=== PATIENT | female | born 1940 | race Caucasian/White ===

== ENCOUNTER 2020-11-13 15:05 | Outpatient (CLI) | payer MEDICARE, OTHER, SELFPAY ==
--- NOTE | 2020-11-13 15:15 | MM_ITS ---
WS: [id number] BILATERAL SCREENING DIGITAL MAMMOGRAM WITH CAD HISTORY: SCREENING COMPARISON: 04/08/2017 Bilateral CC and MLO views submitted. Computer aided detection analyzed. Breast composition: There are scattered areas of fibroglandular density. No suspicious masses, microc alcifications or architectural distortion. Scattered benign calcifications and asymmetries are stable . MM/[place] [id number] IMPRESSION: BI-RADS: 2-Benign FOLLOW UP: 1 Year Follow-up
== END 2020-11-13 15:06 | disposition home or self-care (01) ==
LOC: RADSHAW 15:11
PROVIDERS: PCP Nurse Practitioner Family; Visit Provider Nurse Practitioner Family
DX: Z12.31 Encounter for screening mammogram for malignant neoplasm of breast (principal)
CPT/HCPCS: 77067

== ENCOUNTER 2020-12-31 09:03 | Emergency (ER) | payer MEDICARE, OTHER, SELFPAY ==
[2020-12-31 09:25] VITALS: BP 113/55; PULSE 70; RESP 21; TEMP 37; O2SAT 93; BMI 28.3
--- NOTE | 2020-12-31 09:42 | ED_ITS ---
HPI - COVID General: Chief Complaint: COVID symptoms Stated Complaint: Weakness/Lack of appetite Time Seen by Provider: 12/31/20 09:24 Triage information: Has fever, cough or shortness of breath . No known COVID + exposure last 14 days History of Present Illness: HPI Narrative: 80-year-old female presents emergency room with complaint of having been diagnosed with Covid this morning at [facility]. Complaining of weakness and lack of appetite. She has had some loose stools denies any anosmia. She has had minimal cough which is been nonproductive. She has a history of hypertension she is not normally on oxygen. On arrival here sats are little bit lower than normal she when I came into the room her oxygen sat was 87% while at rest on room air. As I talk to her oxygen sats improved into the low 90s. MD complaint: known COVID positive Prior covid testing: no Prior testing date: 12/31/20 COVID 19 common symptoms: positive cough, non-productive cough, dyspnea, fatigue, body aches, nasal congestion, nausea and diarrhea; negative productive cough, headache(s), loss of sense of smell and/or taste, throat pain or vomiting COVID 19 other sytmptoms: negative chest pain Onset (ago): day(s) (4) Severity: mild Pertinent comorbid conditions: hypertension Treatment prior to arrival: none COVID Results: No Data to Display Review of Systems Const: Reports: body aches and fatigue ENMT: Reports: nasal congestion; Denies: throat pain Card: Denies: chest pain, edema, dyspnea on exertion or orthopnea Resp: Reports: dyspnea and non-productive cough; Denies: productive cough GI: Reports: nausea and diarrhea; Denies: vomiting : Denies: flank pain, difficulty voiding, dysuria, urinary frequency or urinary urgency Skin/Breast: Denies: rash or pruritus Neuro: Denies: headache(s) PFSH ED PFSH: Medical History (Updated 12/31/20 @ 11:27 by Guicho Chairez DO) Arteriosclerosis of coronary artery Bradycardia Carpal tunnel syndrome on both sides Chronic anxiety Diabetes Hypertension Hypotension Left ventricular hypertrophy Leg swelling Mixed hyperlipidemia Myocardial infarction Obese Palpitations Sleep apnea Surgical History H/O heart surgery H/O tubal ligation Previous back surgery Family History Other No family history of disorders Social History Smoking and tobacco status: former smoker Alcohol intake: never Physical Exam Const: COMMON NORMALS: no acute distress GENERAL APPEARANCE: cooperative and comfortable HENMT: COMMON NORMALS: normocephalic, atraumatic and hearing grossly normal bilaterally HEAD & SCALP: normocephalic and atraumatic Neck/C-Spine: COMMON NORMALS: no JVD Resp: COMMON NORMALS: normal respiratory effort, No retractions and No use of accessory muscles AUSCULTATION: wheezes Cardio: COMMON NORMALS: no JVD, regular rate, regular rhythm and No murmurs present (Cardio) RATE: regular rate RHYTHM: regular rhythm GI: COMMON NORMALS: Soft to palpation and No hepatosplenomegaly present AUSCULTATION: Yes normoactive bowel sounds PALPATION: Yes Soft to palpation, No Tenderness to palpation present (GI), No Guarding due to palpation present (GI) and Yes No hepatosplenomegaly present Extremity: COMMON NORMALS: normal to inspection, capillary refill normal, no clubbing, cyanosis or edema, no calf tenderness and no pedal edema Skin: COMMON NORMALS: no rashes or lesions noted GENERAL SKIN EXAM: no rashes or lesions noted Course Vital Signs: Vital signs: Vital Signs Temperature 98.6 F 12/31/20 09:25 Pulse Rate 73 12/31/20 13:31 Respiratory Rate 21 H 12/31/20 13:31 Blood Pressure 116/56 12/31/20 13:31 Pulse Oximetry 97 12/31/20 13:31 MDM - COVID MDM Narrative: Medical decision making narrative: On arrival at times patient will desat to 87% on room air. At home to give her but sent her to the infusion clinic for MAB infusion however when we screened her for home O2 if she qualifies requiring 2 L. Needing oxygen is in excluder for a monoclonal antibody infusion. Discharge home patient home with oxygen at 2 L/min and dexamethasone. Discussed with her unfortunately she is not a candidate for the infusion. Lab Data: Labs: Lab Results 12/31/20 12/31/20 12/31/20 Range/Units 09:41 09:41 09:41 WBC 6.2 (4.0-10.0) 10^3/ uL RBC 4.64 (4.1-5.3) 10^6/u L Hgb 13.6 (11.5-15.3) g/dL Hct 41.3 (37.0-47.0) % MCV 89.0 (81-99) fL MCH 29.3 (28.0-34.0) pg MCHC 32.9 (30.0-36.0) g/dL RDW 13.1 (12.1-15.1) % Plt Count 218 (130-400) 10^3/c mm MPV 10.6 H (7.4-10.4) fL Neut % (Auto) 63.0 % Lymph % (Auto) 28.6 % [place] % (Auto) 7.4 % Eos % (Auto) 0.3 % Baso % (Auto) 0.2 % Neut # (Auto) 3.92 (1.8-7.7) 10^3/u L Lymph # (Auto) 1.8 (0.8-4.8) 10^3/u L [place] # (Auto) 0.5 (0.2-0.9) 10^3/u L Eos # (Auto) 0.0 (0.0-0.8) 10^3/u L Baso # (Auto) 0.0 (0.0-0.1) 10^3/u L Nucleated RBC % (a uto) 0 % Nucleated RBCs # 0.0 /100WBC D-Dimer 0.49 (0-0.59) ug/mIFE U Sodium 134 L (136-145) mmol/L Potassium 3.1 L (3.5-5.1) mmol/L Chloride 91 L (98-107) mmol/L Carbon Dioxide 29 (22-29) mmol/L Anion Gap 17.1 (5-19) BUN 24 H (8-23) mg/dL Creatinine 0.7 (0.5-0.9) mg/dL GFR Calculation Not Reportable Glucose 117 H (65-115) mg/dL Calculated Osmolal ity 283 L (285-295) mOsm/k g Lactic Acid (0.5-2.2) mmol/L Lactic Acid (Sepsi s) (0.5-2.2) mmol/L Calcium 9.1 (8.5-10.5) mg/dL Total Bilirubin 0.8 (0.15-1.2) mg/dL AST 26 (0-32) U/L ALT 17 (0-33) U/L Alkaline Phosphata se 69 (35-105) IU/L Total Protein 6.8 (6.6-8.7) g/dL Albumin 4.0 (3.5-5.2) g/dL Globulin 2.8 (1.3-4.6) g/dL 12/31/20 12/31/20 Range/Units 09:41 12:03 WBC (4.0-10.0) 10^3/ uL RBC (4.1-5.3) 10^6/u L Hgb (11.5-15.3) g/dL Hct (37.0-47.0) % MCV (81-99) fL MCH (28.0-34.0) pg MCHC (30.0-36.0) g/dL RDW (12.1-15.1) % Plt Count (130-400) 10^3/c mm MPV (7.4-10.4) fL Neut % (Auto) % Lymph % (Auto) % [place] % (Auto) % Eos % (Auto) % Baso % (Auto) % Neut # (Auto) (1.8-7.7) 10^3/u L Lymph # (Auto) (0.8-4.8) 10^3/u L [place] # (Auto) (0.2-0.9) 10^3/u L Eos # (Auto) (0.0-0.8) 10^3/u L Baso # (Auto) (0.0-0.1) 10^3/u L Nucleated RBC % (a uto) % Nucleated RBCs # /100WBC D-Dimer (0-0.59) ug/mIFE U Sodium (136-145) mmol/L Potassium (3.5-5.1) mmol/L Chloride (98-107) mmol/L Carbon Dioxide (22-29) mmol/L Anion Gap (5-19) BUN (8-23) mg/dL Creatinine (0.5-0.9) mg/dL GFR Calculation Glucose (65-115) mg/dL Calculated Osmolal ity (285-295) mOsm/k g Lactic Acid 2.5 H (0.5-2.2) mmol/L Lactic Acid (Sepsi s) 2.5 H (0.5-2.2) mmol/L Calcium (8.5-10.5) mg/dL Total Bilirubin (0.15-1.2) mg/dL AST (0-32) U/L ALT (0-33) U/L Alkaline Phosphata se (35-105) IU/L Total Protein (6.6-8.7) g/dL Albumin (3.5-5.2) g/dL Globulin (1.3-4.6) g/dL COVID Results: No Data to Display Monoclonal Antibody Treatments Inclusion/Exclusion Criteria weight >/= 40 kg and + direct Sars-Cov-2 test less than 7-10 days ago age >/= 65 needs oxygen (DO NOT GIVE) Plan for treatment Does not meet criteria (DO NOT GIVE) (Due to oxygen requirement) Discharge Plan Discharge Patient Disposition: Home Clinical Impression: COVID-19 Condition: Stable Prescriptions: New dexamethasone 6 mg tablet 6 mg PO DAILY Qty: 7 RF: 0 albuterol sulfate 90 mcg/actuation HFA aerosol inhaler 2 inh INHALATION Q4H PRN (Reason: shortness of breath or wheezing) Qty: 18 RF: 0 No Action metformin 500 mg tablet 500 mg PO BID RF: 0 atorvastatin 40 mg tablet 40 mg PO DAILY RF: 0 amlodipine 5 mg tablet 5 mg PO DAILY RF: 0 aspirin 325 mg tablet 325 mg PO DAILY RF: 0 metoprolol tartrate 50 mg tablet 50 mg PO BID RF: 0 ranitidine HCl 150 mg capsule 150 mg PO DAILY PRNRF: 0 buspirone 15 mg tablet PO DAILY RF: 0 donepezil 10 mg tablet 10 mg PO DAILY RF: 0 chlorthalidone 25 mg tablet 25 mg PO DAILY Qty: 90 RF: 3 Discharge Orders: Discharge ED (Routine); Ordered 12/31/20 Ordered By: Guicho Chairez Other Ambulatory Orders: DME: Oxygen (Order) Location: None Selected Ordered By: Guicho Chairez Referrals: Lynn Chaudhary FNP [Primary Care Provider] - Discharge Diet: Usual diet Discharge Activity: Limit activity as instructed Activity Restrictions/Additional Instructions: Use oxygen 24 hours a day. Start the dexamethasone 6 mg daily for 7 days follow-up with your primary care doctor or return to the emergency room if you have any further problems monitor your oxygen saturation at home if falls below 92% while on the oxygen for a sustained period of time return to the emergency room. Coding Level of Care Code ED Gas Engine Operator Compressors for Jez Fwbabatunde Exam Comprehensive
--- NOTE | 2020-12-31 09:47 | XRR_ITS ---
PROCEDURE INFORMATION: Exam: XR Chest, 1 View Exam date and time: 12/31/2020 10:16 AM Age: 80 years old Clinical indication: Dyspnea TECHNIQUE: Imaging protocol: XR of the chest Views: 1 view. COMPARISON: [facility] Chest 2 views 11/05/2015 2:34 PM FINDINGS: Lungs: The pulmonary vascularity is normal. There is scattered interstitial fibrotic changes. There is no airspace consolidation. Pleural spaces: Unremarkable. No pleural effusion. No pneumothorax. Heart/Mediastinum: The cardiac silhouette is mildly enlarged. Bones/joints: Unremarkable. XR/XR chest 1V portable [id number] IMPRESSION: 1. Mild cardiomegaly. 2. Scattered interstitial pulmonary fibrosis. 3. No acute abnormality is seen in the chest.
[2020-12-31] MEDS: dexamethasone 4 mg/mL INJ 6 MG IVP (09:57)
[2020-12-31 10:00] LABS: Basophils % 0.2 %; Eosinophils % 0.3 %; Hematocrit 41.3 % (37.0-47.0); Hemoglobin 13.6 g/dL (11.5-15.3); Lymphocytes # 1.8 10^3/uL (0.8-4.8); Lymphocytes % 28.6 %; Mean Corpuscular HGB Conc 32.9 g/dL (30.0-36.0); Mean Corpuscular Hemoglobin 29.3 pg (28.0-34.0); Mean Platelet Volume 10.6 fL (7.4-10.4); Monocytes # 0.5 10^3/uL (0.2-0.9); Monocytes % 7.4 %; Neutrophils # 3.92 10^3/uL (1.8-7.7); Nucleated Red Blood Cells % 0 %; Platelet Count 218 10^3/cmm (130-400); Red Blood Count 4.64 10^6/uL (4.1-5.3); Red Cell Distribution Width 13.1 % (12.1-15.1); White Blood Count 6.2 10^3/uL (4.0-10.0)
[2020-12-31 10:10] LABS: D Dimer 0.49 ug/mIFEU (0-0.59)
[2020-12-31 10:23] LABS: Alanine Aminotransferase 17 U/L (0-33); Alkaline Phosphatase 69 IU/L (35-105); Anion Gap 17.1 (5-19); Aspartate Amino Transferase 26 U/L (0-32); Blood Urea Nitrogen 24 mg/dL (8-23); Calcium 9.1 mg/dL (8.5-10.5); Carbon Dioxide 29 mmol/L (22-29); Chloride 91 mmol/L (98-107); Globulin 2.8 g/dL (1.3-4.6); Glucose 117 mg/dL (65-115); Osmolality Calculated 283 mOsm/kg (285-295); Potassium 3.1 mmol/L (3.5-5.1); Sodium 134 mmol/L (136-145); Total Bilirubin 0.8 mg/dL (0.15-1.2); Total Protein 6.8 g/dL (6.6-8.7)
[2020-12-31 10:24] LABS: Lactic Sepsis W/Reflex 2.5 mmol/L (0.5-2.2)
[2020-12-31 10:40] VITALS: O2SAT 87; O2SAT 95
[2020-12-31] MEDS: sodium chloride 0.9% 1,000 ML 999 ML IV (10:53)
[2020-12-31 11:40] LABS: Reflex Lactate Order REFLEX LACTIC ORDERD
[2020-12-31 12:20] VITALS: BP 107/65; PULSE 72; RESP 20; O2SAT 98
[2020-12-31 12:25] LABS: Lactic Acid level (Lactate) 2.5 mmol/L (0.5-2.2)
[2020-12-31 13:31] VITALS: BP 116/56; PULSE 73; RESP 21; O2SAT 97
== END 2020-12-31 13:39 | disposition home or self-care (01) ==
PROVIDERS: Emergency Provider Family Medicine; PCP Nurse Practitioner Family
DX: U07.1 COVID-19 (principal); Z79.82 Long term (current) use of aspirin; Z79.84 Long term (current) use of oral hypoglycemic drugs; E11.9 Type 2 diabetes mellitus without complications; I10 Essential (primary) hypertension; E78.2 Mixed hyperlipidemia; I25.2 Old myocardial infarction; Z87.891 Personal history of nicotine dependence
CPT/HCPCS: 12345; 36415; 71045; 80053; 83605; 85025; 85378; 96361; 96374; 99282; 99283; J1100; J7030

== ENCOUNTER 2021-01-06 08:16 | Inpatient (IN) | payer MEDICARE, OTHER, SELFPAY ==
[2021-01-06] VITALS (9 sets, daily range): BP systolic 106–132; BP diastolic 65–78; PULSE 61–86; RESP 16–20; TEMP 36.3–38.8; O2SAT 93–97; BMI 26.6
--- NOTE | 2021-01-06 08:31 | XR_ITS ---
WS: [id number] PORTABLE CHEST HISTORY: dyspnea COMPARISON: 12/31/2019 Chronic emphysema with interstitial thickening. Mild progression of the interstitial thickening since 12/31/2020 suggesting superimposed pneumonitis. No pleural effusion or pneumothorax. Cardiac size: Normal. Mediastinum/Aorta: Mild atherosclerosis aorta. No osseous abnormality seen. XR/XR chest 1V portable [id number] IMPRESSION: 1. Very mild progression of the interstitial thickening suggesting a superimpo sed pneumonitis on patient's chronic interstitial lung disease. 2. No pneumonia.
--- NOTE | 2021-01-06 08:31 | W.ED.AMS ---
HPI - Altered Mental Status General: Chief Complaint: Altered Mental Status Stated Complaint: AMS / SHORT OF BREATH / COVID + Time Seen by Provider: 01/06/21 08:17 History of Present Illness: HPI narrative: 80-year-old female presents to the emergency room with confusion. She was diagnosed with Covid on 12/31. We seen her in the ER on 210 she was evaluated then for possible monoclonal antibody infusion however she was requiring oxygen which was in excluder so she did not receive it. She did get sent home on oxygen and dexamethasone. This morning she was confused and had a fall. She denies any injury but I am not really comfortable with her history and that she answers I do not know to nearly every question. Is no evidence of head trauma. She is not on any anticoagulants are listed on her medication list. MD complaint: altered mental status and confusion Onset (ago): hour(s) Severity: moderate Consistency of symptoms: Getting Worse Treatments prior to arrival: oxygen Review of Systems Const: Denies: fever(s), chills, body aches, change in appetite, fatigue or malaise ENMT: Denies: throat pain, ear or mastoid pain, nasal discharge or nasal congestion Card: Denies: chest pain, edema, dyspnea on exertion or orthopnea Resp: Denies: dyspnea, productive cough or non-productive cough GI: Denies: abdominal pain, nausea, vomiting, hematemesis, coffee ground emesis, diarrhea, constipation, bloating, hematochezia or melena : Denies: flank pain, difficulty voiding, dysuria, urinary frequency or urinary urgency Skin/Breast: Denies: rash or pruritus PFSH ED PFSH: Medical History (Updated 01/06/21 @ 11:02 by Guicho Chairez DO) Arteriosclerosis of coronary artery Bradycardia Carpal tunnel syndrome on both sides Chronic anxiety Diabetes Hypertension Hypotension Left ventricular hypertrophy Leg swelling Mixed hyperlipidemia Myocardial infarction Obese Palpitations Sleep apnea Surgical History H/O heart surgery H/O tubal ligation Previous back surgery Family History Other No family history of disorders Social History Smoking and tobacco status: former smoker Alcohol intake: never Physical Exam Const: COMMON NORMALS: no acute distress GENERAL APPEARANCE: cooperative and comfortable HENMT: COMMON NORMALS: normocephalic, atraumatic and hearing grossly normal bilaterally HEAD & SCALP: normocephalic and atraumatic Eye: COMMON NORMALS: Equal, round and reactive pupils present, EOMs intact bilaterally, conjunctivae normal and no scleral icterus CONJUNCTIVA: Yes conjunctivae normal PUPIL: Yes Equal, round and reactive pupils present Neck/C-Spine: COMMON NORMALS: full ROM, no lymphadenopathy, supple and no JVD Lymph: LYMPHATIC: no lymphadenopathy noted and no lymphedema noted Resp: AUSCULTATION: wheezes and diminished lung sounds Cardio: COMMON NORMALS: no JVD, regular rate, regular rhythm and No murmurs present (Cardio) RATE: regular rate RHYTHM: regular rhythm GI: COMMON NORMALS: Soft to palpation and No hepatosplenomegaly present AUSCULTATION: Yes normoactive bowel sounds PALPATION: Yes Soft to palpation, No Tenderness to palpation present (GI), No Guarding due to palpation present (GI) and Yes No hepatosplenomegaly present Extremity: COMMON NORMALS: normal to inspection, capillary refill normal, no clubbing, cyanosis or edema, no calf tenderness and no pedal edema Neuro: OTHER: No focal neurologic deficits. No lateralizing signs on exam. Skin: COMMON NORMALS: no rashes or lesions noted GENERAL SKIN EXAM: no rashes or lesions noted Course Vital Signs: Vital signs: Vital Signs Temperature 101.9 F H 01/06/21 08:18 Pulse Rate 86 01/06/21 10:45 Respiratory Rate 18 01/06/21 10:45 Blood Pressure 132/74 01/06/21 10:45 Pulse Oximetry 95 01/06/21 10:45 MDM - Altered Mental Status MDM Narrative: Medical decision making narrative: No focal neurologic deficits on exam. She does have increased infiltrate on the right suspicious for secondary pneumonia. D-dimer is slightly elevated CTA of the chest is pending she will need to be admitted started IV antibiotics for possible secondary pneumonia. CT shows developing what appears to be Covid pneumonitis as well as secondary pneumonia superimposed on COPD. No pulmonary embolism Lab Data: Labs: Lab Results 01/06/21 01/06/21 01/06/21 Range/Units 08:34 08:34 08:34 WBC 8.4 (4.0-10.0) 10^3/ uL RBC 4.81 (4.1-5.3) 10^6/u L Hgb 14.0 (11.5-15.3) g/dL Hct 41.7 (37.0-47.0) % MCV 86.7 (81-99) fL MCH 29.1 (28.0-34.0) pg MCHC 33.6 (30.0-36.0) g/dL RDW 12.7 (12.1-15.1) % Plt Count 336 (130-400) 10^3/c mm MPV 10.4 (7.4-10.4) fL Neut % (Auto) 67.9 % Lymph % (Auto) 24.5 % [place] % (Auto) 6.8 % Eos % (Auto) 0.4 % Baso % (Auto) 0.0 % Neut # (Auto) 5.68 (1.8-7.7) 10^3/u L Lymph # (Auto) 2.1 (0.8-4.8) 10^3/u L [place] # (Auto) 0.6 (0.2-0.9) 10^3/u L Eos # (Auto) 0.0 (0.0-0.8) 10^3/u L Baso # (Auto) 0.0 (0.0-0.1) 10^3/u L Nucleated RBC % (a uto) 0 % Nucleated RBCs # 0.0 /100WBC D-Dimer 0.77 H (0-0.59) ug/mIFE U Specimen Type Sample Site ABG pH (7.35-7.45) ABG pCO2 (35-45) mmHg ABG pO2 (80.0-100.0) mmH g ABG HCO3 (22-26) mmol/L ABG O2 Saturation ABG Base Excess (-2.0-2.0) mmol/ L Eulogio Test A-a O2 Gradient (5-10) mmHg Hematocrit (37-47) % Hgb O2 Saturation (95-100) % Carboxyhemoglobin (0.4-20.1) %THgb Methemoglobin (0.4-1.5) % Total Hemoglobin (12-16) g/dL Ionized Calcium (1.1-1.4) mmol/L O2 Delivery Device O2 Liters/Min % FiO2 % Privacy Compliance Manager ID Sodium 134 L (136-145) mmol/L Potassium 3.0 L (3.5-5.1) mmol/L Chloride 90 L (98-107) mmol/L Carbon Dioxide 33 H (22-29) mmol/L Anion Gap 14.0 (5-19) BUN 20 (8-23) mg/dL Creatinine 0.7 (0.5-0.9) mg/dL GFR Calculation Not Reportable Glucose 102 (65-115) mg/dL Calculated Osmolal ity 281 L (285-295) mOsm/k g Lactic Acid (0.5-2.2) mmol/L Calcium 9.5 (8.5-10.5) mg/dL Total Bilirubin 0.7 (0.15-1.2) mg/dL AST 22 (0-32) U/L ALT 16 (0-33) U/L Alkaline Phosphata se 69 (35-105) IU/L Creatine Kinase 18 L (26-192) U/L Troponin T Baselin e (0-10) ng/L Total Protein 6.8 (6.6-8.7) g/dL Albumin 3.9 (3.5-5.2) g/dL Globulin 2.9 (1.3-4.6) g/dL Urine Color (Yellow) Urine Appearance (CLEAR) Urine pH (5-7) Ur Specific Gravit y (1.005-1.030) Urine Protein (Negative) Urine Glucose (UA) (Normal) Urine Ketones (Negative) Urine Blood (Negative) Urine Nitrate (Negative) Urine Bilirubin (Negative) Urine Urobilinogen (Negative) mg/dL Ur Leukocyte Celina ase (Negative) Urine RBC (0-2) /hpf Urine WBC (0-5) /hpf Ur Squamous Epith Cells (0-5) /hpf Amorphous Sediment Urine Bacteria (NONE) /hpf Urine Mucus /hpf 01/06/21 01/06/21 01/06/21 Range/Units 08:34 08:34 08:45 WBC (4.0-10.0) 10^3/ uL RBC (4.1-5.3) 10^6/u L Hgb (11.5-15.3) g/dL Hct (37.0-47.0) % MCV (81-99) fL MCH (28.0-34.0) pg MCHC (30.0-36.0) g/dL RDW (12.1-15.1) % Plt Count (130-400) 10^3/c mm MPV (7.4-10.4) fL Neut % (Auto) % Lymph % (Auto) % [place] % (Auto) % Eos % (Auto) % Baso % (Auto) % Neut # (Auto) (1.8-7.7) 10^3/u L Lymph # (Auto) (0.8-4.8) 10^3/u L [place] # (Auto) (0.2-0.9) 10^3/u L Eos # (Auto) (0.0-0.8) 10^3/u L Baso # (Auto) (0.0-0.1) 10^3/u L Nucleated RBC % (a uto) % Nucleated RBCs # /100WBC D-Dimer (0-0.59) ug/mIFE U Specimen Type Sample Site ABG pH (7.35-7.45) ABG pCO2 (35-45) mmHg ABG pO2 (80.0-100.0) mmH g ABG HCO3 (22-26) mmol/L ABG O2 Saturation ABG Base Excess (-2.0-2.0) mmol/ L Eulogio Test A-a O2 Gradient (5-10) mmHg Hematocrit (37-47) % Hgb O2 Saturation (95-100) % Carboxyhemoglobin (0.4-20.1) %THgb Methemoglobin (0.4-1.5) % Total Hemoglobin (12-16) g/dL Ionized Calcium (1.1-1.4) mmol/L O2 Delivery Device O2 Liters/Min % FiO2 % Privacy Compliance Manager ID Sodium (136-145) mmol/L Potassium (3.5-5.1) mmol/L Chloride (98-107) mmol/L Carbon Dioxide (22-29) mmol/L Anion Gap (5-19) BUN (8-23) mg/dL Creatinine (0.5-0.9) mg/dL GFR Calculation Glucose (65-115) mg/dL Calculated Osmolal ity (285-295) mOsm/k g Lactic Acid 2.1 (0.5-2.2) mmol/L Calcium (8.5-10.5) mg/dL Total Bilirubin (0.15-1.2) mg/dL AST (0-32) U/L ALT (0-33) U/L Alkaline Phosphata se (35-105) IU/L Creatine Kinase (26-192) U/L Troponin T Baselin e 12 H (0-10) ng/L Total Protein (6.6-8.7) g/dL Albumin (3.5-5.2) g/dL Globulin (1.3-4.6) g/dL Urine Color Yellow (Yellow) Urine Appearance Clear (CLEAR) Urine pH 6 (5-7) Ur Specific Gravit y 1.010 (1.005-1.030) Urine Protein Neg (Negative) Urine Glucose (UA) Norm (Normal) Urine Ketones Negative (Negative) Urine Blood Neg (Negative) Urine Nitrate Negative (Negative) Urine Bilirubin Neg (Negative) Urine Urobilinogen Norm (Negative) mg/dL Ur Leukocyte Celina ase Negative (Negative) Urine RBC None (0-2) /hpf Urine WBC 0-4 H (0-5) /hpf Ur Squamous Epith Cells 0-4 H (0-5) /hpf Amorphous Sediment Not Reportable Urine Bacteria Trace (NONE) /hpf Urine Mucus Trace /hpf 01/06/21 Range/Units 09:32 WBC (4.0-10.0) 10^3/ uL RBC (4.1-5.3) 10^6/u L Hgb (11.5-15.3) g/dL Hct (37.0-47.0) % MCV (81-99) fL MCH (28.0-34.0) pg MCHC (30.0-36.0) g/dL RDW (12.1-15.1) % Plt Count (130-400) 10^3/c mm MPV (7.4-10.4) fL Neut % (Auto) % Lymph % (Auto) % [place] % (Auto) % Eos % (Auto) % Baso % (Auto) % Neut # (Auto) (1.8-7.7) 10^3/u L Lymph # (Auto) (0.8-4.8) 10^3/u L [place] # (Auto) (0.2-0.9) 10^3/u L Eos # (Auto) (0.0-0.8) 10^3/u L Baso # (Auto) (0.0-0.1) 10^3/u L Nucleated RBC % (a uto) % Nucleated RBCs # /100WBC D-Dimer (0-0.59) ug/mIFE U Specimen Type Arterial Sample Site Brachial, right ABG pH 7.52 H (7.35-7.45) ABG pCO2 39.4 (35-45) mmHg ABG pO2 82.9 (80.0-100.0) mmH g ABG HCO3 32.0 H (22-26) mmol/L ABG O2 Saturation 96.3 ABG Base Excess 8.5 H (-2.0-2.0) mmol/ L Eulogio Test Pos A-a O2 Gradient 8.9 (5-10) mmHg Hematocrit 43.1 (37-47) % Hgb O2 Saturation 94.1 L (95-100) % Carboxyhemoglobin 1.7 (0.4-20.1) %THgb Methemoglobin 0.7 (0.4-1.5) % Total Hemoglobin 14.1 (12-16) g/dL Ionized Calcium 1.2 (1.1-1.4) mmol/L O2 Delivery Device Nc O2 Liters/Min 2.0 % FiO2 28.0 % Privacy Compliance Manager ID Bd Sodium 136.0 (136-145) mmol/L Potassium 3.1 L (3.5-5.1) mmol/L Chloride (98-107) mmol/L Carbon Dioxide (22-29) mmol/L Anion Gap (5-19) BUN (8-23) mg/dL Creatinine (0.5-0.9) mg/dL GFR Calculation Glucose 125.0 H (65-115) mg/dL Calculated Osmolal ity (285-295) mOsm/k g Lactic Acid (0.5-2.2) mmol/L Calcium (8.5-10.5) mg/dL Total Bilirubin (0.15-1.2) mg/dL AST (0-32) U/L ALT (0-33) U/L Alkaline Phosphata se (35-105) IU/L Creatine Kinase (26-192) U/L Troponin T Baselin e (0-10) ng/L Total Protein (6.6-8.7) g/dL Albumin (3.5-5.2) g/dL Globulin (1.3-4.6) g/dL Urine Color (Yellow) Urine Appearance (CLEAR) Urine pH (5-7) Ur Specific Gravit y (1.005-1.030) Urine Protein (Negative) Urine Glucose (UA) (Normal) Urine Ketones (Negative) Urine Blood (Negative) Urine Nitrate (Negative) Urine Bilirubin (Negative) Urine Urobilinogen (Negative) mg/dL Ur Leukocyte Celina ase (Negative) Urine RBC (0-2) /hpf Urine WBC (0-5) /hpf Ur Squamous Epith Cells (0-5) /hpf Amorphous Sediment Urine Bacteria (NONE) /hpf Urine Mucus /hpf Discharge Plan Discharge Patient Disposition: Admitted As Inpatient Clinical Impression: COVID-19, Pneumonia, COPD (chronic obstructive pulmonary disease) Condition: Stable Coding Level of Care Code ED Tobacco Baler for Deisyg Fwd Exam Comprehensive
--- NOTE | 2021-01-06 08:33 | ECG_ITS ---
[facility] Test Date: 2021-01-06 Pat Name: Nadia Amaya Department: Room: Gender: Female Material Reclaimer: : 1940 Requested By: Guicho Patterson Order Number: [id number] Ethel MD: Cedrick Youssef M.D. Measurements Intervals [place] Rate: 84 P: 40 CA: 142 QRS: 52 QRSD: 85 T: 28 QT: 326 QTc: 386 Interpretive Statements SINUS RHYTHM NONSPECIFIC T-WAVE ABNORMALITY No previous ECG available for comparison Electronically Signed On 01-06-2021 16:06:45 SECURITY SYSTEM ENGINEER by Cedrick Youssef M.D. [email or web address]/store/[id number] [email or web address]
[2021-01-06 08:43] LABS: Eosinophils % 0.4 %; Hematocrit 41.7 % (37.0-47.0); Lymphocytes # 2.1 10^3/uL (0.8-4.8); Lymphocytes % 24.5 %; Mean Corpuscular HGB Conc 33.6 g/dL (30.0-36.0); Mean Corpuscular Hemoglobin 29.1 pg (28.0-34.0); Mean Corpuscular Volume 86.7 fL (81-99); Mean Platelet Volume 10.4 fL (7.4-10.4); Monocytes # 0.6 10^3/uL (0.2-0.9); Monocytes % 6.8 %; Neutrophils # 5.68 10^3/uL (1.8-7.7); Neutrophils % 67.9 %; Nucleated Red Blood Cells % 0 %; Platelet Count 336 10^3/cmm (130-400); Red Blood Count 4.81 10^6/uL (4.1-5.3); Red Cell Distribution Width 12.7 % (12.1-15.1); White Blood Count 8.4 10^3/uL (4.0-10.0)
[2021-01-06] MEDS: dexamethasone 4 mg/mL INJ 6 MG IVP (08:55)
[2021-01-06 08:58] LABS: D Dimer 0.77 ug/mIFEU (0-0.59)
[2021-01-06 08:59] LABS: Alanine Aminotransferase 16 U/L (0-33); Albumin Level 3.9 g/dL (3.5-5.2); Alkaline Phosphatase 69 IU/L (35-105); Aspartate Amino Transferase 22 U/L (0-32); Blood Urea Nitrogen 20 mg/dL (8-23); Calcium 9.5 mg/dL (8.5-10.5); Carbon Dioxide 33 mmol/L (22-29); Chloride 90 mmol/L (98-107); Creatine Phosphokinase 18 U/L (26-192); Globulin 2.9 g/dL (1.3-4.6); Glucose 102 mg/dL (65-115); Osmolality Calculated 281 mOsm/kg (285-295); Sodium 134 mmol/L (136-145); Total Bilirubin 0.7 mg/dL (0.15-1.2); Total Protein 6.8 g/dL (6.6-8.7)
[2021-01-06 09:00] LABS: Lactic Sepsis W/Reflex 2.1 mmol/L (0.5-2.2)
[2021-01-06 09:01] LABS: Troponin(5th) Baseline 12 ng/L (0-10)
--- NOTE | 2021-01-06 09:40 | CT_ITS ---
WS: [id number] CT CHEST ANGIOGRAPHY WITH REFORMATS HISTORY: elevated d dimer TECHNIQUE: Contiguous axial images are obtained through the chest during arterial injection of intrav enous contrast. Images are reconstructed to evaluate the pulmonary arteries. MIP imaging also reviewe d. All CT scans at [facility] use at least one of these dose optimization techniques: aut omated exposure control; mA and/or kV adjustment per patient size (includes targeted exams where dose is matched to clinical indication); or iterative reconstruction. CONTRAST: Omnipaque 350; 95 mL IV. DLP: 539.48 mGy.cm COMPARISON: None available. Very good opacification of the pulmonary arteries. No pulmonary embolism is identified. Ulnar artery size is enlarged. Mild atherosclerosis aorta. Mild enlargement of the LEFT heart chambers. No pericar dial or pleural effusions. Coronary artery atherosclerotic changes. Emphysema with severe changes of paraseptal and centrilobular emphysema. Interstitial thickening and reticulations in the periphery of both lungs but greatest on the RIGHT involving the RIGHT upper lobe . Mild interstitial thickening at the lung bases with patchy opacifications. Mediastinal and hilar enlarged lymph nodes. Largest burden on the RIGHT with a short axis diameter of 1.4 cm. Low-attenuation nodule measuring 1.2 cm anterior superior RIGHT lobe of the liver. May be a small cys ts. No bile duct dilatation. Gallbladder as visualized is negative. No adrenal nodules. Areas of decr eased attenuation involving the kidneys cannot be further evaluated on this study. These may be benig n cysts. CT/CT angio chest PE protcl [id number] IMPRESSION: 1. No pulmonary embolism. 2. Severe centrilobular and paraseptal emphysema with developing pneumonia in the RIGHT upper lobe. Additional interstitial thickening in the posterior lower lung forbes probably areas of pneumonitis. 3. Pulmonary hypertension. 4. Indeterminate bilateral hilar lymph nodes. Probably reactive. Consider 3 mo [facility] chest CT follow-up after treatment for acute findings.
[2021-01-06 09:42] LABS: ABG PCO2 39.4 mmHg (35-45); ABG PH Result 7.52 (7.35-7.45); Alveolar-Arterial Oxygen Gradi 8.9 mmHg (5-10); Arterial Blood Gas Hematocrit 43.1 % (37-47); Base Excess ABG 8.5 mmol/L (-2.0-2.0); Blood Gas Allen Test Pos; Blood Gas Operator Identificat BD; Blood Gas Sample Site Brachial, right; Blood Gas Sample Type Arterial; Carboxyhemoglobin 1.7 %THgb (0.4-20.1); HGB O2 Sat 94.1 % (95-100); Ionized Calcium Level - ABG 1.2 mmol/L (1.1-1.4); Methemoglobin 0.7 % (0.4-1.5); Oxygen Device NC; Oxygen Saturation ABG 96.3; PO2 ABG 82.9 mmHg (80.0-100.0); Potassium Level - ABG 3.1 mmol/L (3.5-5.0); Total Hemoglobin 14.1 g/dL (12-16)
[2021-01-06] MEDS: levofloxacin-dextrose 5 % 750 MG/150 ML PREMIX 100 MG IV (09:56)
[2021-01-06 09:58] LABS: Add Urine Culture? No; Bacteria Urine TRACE /hpf; Bilirubin Urine Neg (Negative); Blood Urine Neg (Negative); Glucose Urine UA Norm (Normal); Ketones Urine Negative (Negative); Leukocyte Esterase Urine Negative (Negative); Mucus Urine TRACE /hpf; Nitrate Urine Negative (Negative); Protein Urine Neg (Negative); Squamous Epithelial Cell Urine 0-4 /hpf (0-5); Urine Appearance Clear (CLEAR); Urine Color Yellow (Yellow); Urobilinogen Urine Norm (Negative); WBC Urine 0-4 /hpf (0-5); pH Urine 6 (5-7)
[2021-01-06] MEDS: iohexol 350 mg/mL 100 mL Btl IV (09:59)
[2021-01-06 10:27] LABS: Reflex Lactate Order REFLEX LACTIC ORDERD
--- NOTE | 2021-01-06 10:33 | ECG_ITS ---
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 Measurements Intervals [place] Rate: 82 P: 36 WI: 141 QRS: 52 QRSD: 88 T: 30 QT: 331 QTc: 387 Interpretive Statements SINUS RHYTHM ST DEVIATION AND MODERATE T-WAVE ABNORMALITY, CONSIDER ANTEROLATERAL ISCHEMIA [-0.1+ mV T WAVE IN V3-V6] No previous ECG available for comparison Electronically Signed On 01-06-2021 16:11:25 PATROL LADY by Cedrick Youssef M.D. [id number]
[2021-01-06 11:36] LABS: Lactic Acid level (Lactate) 1.7 mmol/L (0.5-2.2)
--- NOTE | 2021-01-06 11:36 | P.HP_ITS ---
Providers/Chief Complaint Primary Care Provider: HÉCTOR Black Chief Complaint: AMS / SHORT OF BREATH / COVID + History of Present Illness Nadia Amaya is a 80 year old female with PMH of CAD,HTN,DM, DLD , she was recently diagnosed with COVID on 12/31 and was discharged home from the ER ON 2Ls oxygen via nc as well as dexamethasone 6 mg po came in with c/o confusion. When I evaluated the patient she was complaining of generalized weakness as well inability to walk due to weakness.She also experienced fall at home,in which th ere was no loss consciousness or any head injury. ER Course : CTA chest with contrast :No pulmonary embolism. Severe centrilobular and paraseptal emphysema with developing pneumonia in the RIGHT upper lobe. Additional interstitial thickening in the posterior lower lung forbes probably areas of pneumonitis. Pulmonary hypertension. XR chest 1V portable: Very mild progression of the interstitial thickening suggesting a superimposed pneumonitis on patient's chronic interstitial lung disease. EKG: NSR : NONSPECIFIC T-WAVE ABNORMALITY: ABG :Ph : 7.54 , PCO2: 39 , PO2: 82 FIO2: 28 % Pertinent labs : Troponin T :Baseline : 12 2H: 12.15 Delta 2H: 0.15 6H: 9.88 Urine analysis :Clean ECA Medications: Dexamaethasone : 6 mg I.V * 1 Dose , Levofloxacin 750 mg I.V * 1 dose . Review of Systems Card: Denies: palpitations, edema, swelling of feet/ankles or leg pain with exertion Resp: Denies: wheezing GI: Denies: abdominal pain, nausea, vomiting, diarrhea or constipation : Denies: flank pain Musc: Denies: back pain, extremity pain or extremity swelling Neuro: Denies: headache(s) Medications/Allergies Home Medications Medication Instructions Recorded Confirmed Last Taken Type amlodipine 5 mg tablet 5 mg PO DAILY tab 11/24/19 01/06/21 01/05/21 History aspirin 325 mg tablet 325 mg PO DAILY tab 11/24/19 01/06/21 01/05/21 History atorvastatin 40 mg tablet 40 mg PO BEDTIME tab 11/24/19 01/06/21 01/05/21 History metformin 500 mg tablet 500 mg PO BID 11/24/19 01/06/21 01/05/21 History metoprolol tartrate 50 mg tablet 50 mg PO BID 11/24/19 01/06/21 01/05/21 History chlorthalidone 25 mg tablet 25 mg PO DAILY #90 tab 04/01/20 01/06/21 01/05/21 Rx buspirone 15 mg tablet 15 mg PO DAILY tab 12/10/20 01/06/21 01/05/21 History donepezil 10 mg tablet 10 mg PO DAILY tab 12/10/20 01/06/21 01/05/21 History albuterol sulfate 2 inh INHALATION Q4H PRN #18 gm 12/31/20 01/06/21 Unknown Rx dexamethasone 6 mg PO DAILY #7 tab 12/31/20 01/06/21 01/06/21 Rx took last dose today dorzolamide 1 drp OPHTHALMIC (EYE) BID 01/06/21 01/06/21 Unknown History latanoprost 1 drp OPHTHALMIC (EYE) BEDTIME 01/06/21 01/06/21 Unknown History timolol 1 drp OPHTHALMIC (EYE) BID 01/06/21 01/06/21 Unknown History Allergies Allergy/AdvReac Type Severity Reaction Status Date / Time codeine Allergy GI upset Verified 12/23/20 14:01 morphine Allergy rash Verified 12/23/20 14:01 sulfabenzamide Allergy unknown Verified 12/23/20 14:01 tetanus toxoid, adsorbed Allergy extreme Verified 12/23/20 14:01 fatigue tetracycline Allergy made her Verified 12/23/20 14:01 tingle losartan AdvReac Intermediate chest Verified 12/23/20 14:01 pain/ weakness/ uneasy feeling PFSH Acute PFSH: Medical History (Updated 01/06/21 @ 21:59 by Odell Wolf MD) Arteriosclerosis of coronary artery Bradycardia Carpal tunnel syndrome on both sides Chronic anxiety Diabetes Hypertension Hypotension Left ventricular hypertrophy Leg swelling Mixed hyperlipidemia Myocardial infarction Obese Palpitations Sleep apnea Surgical History H/O heart surgery H/O tubal ligation Previous back surgery Family History Other No family history of disorders Social History Smoking and tobacco status: former smoker Alcohol intake: never Vitals/I&O/Wt Last Vital Signs Temp 101.9 F H 01/06/21 08:18 Pulse 86 01/06/21 10:45 Resp 18 01/06/21 10:45 BP 132/74 01/06/21 10:45 Pulse Ox 95 01/06/21 10:45 Weight last 48 hrs Weight 70.307 kg Physical Exam Narrative: EXAM NARRATIVE: Alert and awake HENMT: COMMON NORMALS: normocephalic and atraumatic HEAD & SCALP: normocephalic and atraumatic Chest: COMMONS NORMALS: normal inspection of the chest CHEST: Yes Symmetrical chest wall rise Resp: COMMON NORMALS: normal respiratory effort and clear to auscultation bilaterally EFFORT & INSPECTION: Yes symmetric chest movement AUSCULTATION: clear to auscultation bilaterally Cardio: COMMON NORMALS: regular rate, regular rhythm, S1 normal heart sound present, S2 normal heart sound present, No gallops present (Cardio), No murmurs present (Cardio), No rub (Cardio) and Peripheral pulses 2+ throughout RATE: regular rate RHYTHM: regular rhythm HEART SOUNDS: S1 normal heart sound present and S2 normal heart sound present PERIPHERAL PULSES: Peripheral pulses 2+ throughout GI: COMMON NORMALS: Normal to inspection, nondistended, normoactive bowel sounds present, Soft to palpation, non-tender, No hepatosplenomegaly present and no masses AUSCULTATION: Yes normoactive bowel sounds PALPATION: Yes Soft to palpation and Yes No hepatosplenomegaly present RECTAL EXAM: deferred Extremity: COMMON NORMALS: no clubbing, cyanosis or edema and no pedal edema Neuro: COMMON NORMALS: patient oriented x3 Data : 01/06/21 08:34 01/06/21 08:34 Micro: Microbiology 01/06/21 08:34 Blood Culture - Preliminary Blood SPECIMEN COLLECTED 01/06/21 08:36 Blood Culture - Preliminary Blood SPECIMEN COLLECTED A&P Assessment and plan (1) Pneumonia: COVID PNA : Continue Dexamethasone 6 mg I.V Daily Ascorbic Acid Zinc Remdesivir Nebs Supplemental Oxygen Status: Acute (2) COVID-19: Status: Acute (3) Acute encephalopathy: 2/2 TO Viral Syndrome. Status: Acute (4) COPD (chronic obstructive pulmonary disease): Status: Acute (5) Hypertension: Status: Acute Qualifiers: Hypertension type: essential hypertension Qualified Code(s): I10 - Essential (primary) hypertension (6) Hypokalemia: Status: Acute (7) Diabetes: LDSSI FSG Status: Acute Additional A&P Information DVT PPX: Lovenox 40 mg sc daily Code status :Full code Disposition :Home Attestations Medical Necessity Statement*: Patient needs to be in hospital for the ma nagement of COVID PNA.Anticipated length of stay greater then 2 midnights . 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
[2021-01-06 11:53] LABS: Troponin 5 2HR 12.15 ng/L (0-10); Troponin 5 2HR Delta 0.15 ABS# (0-10)
[2021-01-06] MEDS: lanolin oint 7 gm 1 APPLIC TOPICAL (14:39)
[2021-01-06] MEDS: enoxaparin 40 mg/0.4 mL Syringe SUBCUT (14:39)
[2021-01-06 15:32] LABS: Troponin 5 6HR 9.88 ng/L (0-10)
[2021-01-06 15:38] LABS: Troponin 5 6HR Delta -2.12 ng/L (0-12)
[2021-01-06] MEDS: azithromycin 500 MG in sodium chloride 0.9% 250 ML 250 MG IV (16:23)
[2021-01-06 17:00] LABS: Glucose Point of Care 155 mg/dL (70-110)
[2021-01-06] MEDS: acetaminophen 325 mg Tablet 650 MG PO (17:33)
[2021-01-06] MEDS: guaiFENesin 600 mg Tablet PO (17:34)
[2021-01-06] MEDS: dorzolamide 2% Op Soln 10 mL Btl 1 DROP EYE-BOTH (17:34)
[2021-01-06 21:27] LABS: Glucose Point of Care 127 mg/dL (70-110)
[2021-01-06] MEDS: latanoprost 0.005% Op Soln 2.5 mL Btl 1 DROP EYE-BOTH (21:55)
[2021-01-06] MEDS: metoprolol tartrate 50 mg Tablet PO (21:55)
[2021-01-06] MEDS: atorvastatin 40 mg Tablet PO (21:55)
[2021-01-07] VITALS (11 sets, daily range): BP systolic 109–134; BP diastolic 60–94; PULSE 64–114; RESP 16–20; TEMP 36.9–39.3; O2SAT 91–96
[2021-01-07 06:12] LABS: Hematocrit 41.2 % (37.0-47.0); Hemoglobin 13.6 g/dL (11.5-15.3); Lymphocytes # 2.3 10^3/uL (0.8-4.8); Lymphocytes % 32.7 %; Mean Corpuscular Hemoglobin 28.9 pg (28.0-34.0); Mean Corpuscular Volume 87.7 fL (81-99); Mean Platelet Volume 10.2 fL (7.4-10.4); Monocytes # 0.6 10^3/uL (0.2-0.9); Monocytes % 8.4 %; Neutrophils # 4.03 10^3/uL (1.8-7.7); Neutrophils % 58.2 %; Nucleated Red Blood Cells % 0 %; Platelet Count 338 10^3/cmm (130-400); Red Cell Distribution Width 12.6 % (12.1-15.1); White Blood Count 6.9 10^3/uL (4.0-10.0)
[2021-01-07 06:25] LABS: INR 1.06 (0.8-1.2)
[2021-01-07 06:41] LABS: Alanine Aminotransferase 17 U/L (0-33); Albumin Level 3.6 g/dL (3.5-5.2); Alkaline Phosphatase 62 IU/L (35-105); Aspartate Amino Transferase 24 U/L (0-32); Blood Urea Nitrogen 23 mg/dL (8-23); Carbon Dioxide 33 mmol/L (22-29); Chloride 92 mmol/L (98-107); Globulin 2.9 g/dL (1.3-4.6); Glucose 83 mg/dL (65-115); Magnesium 1.7 mg/dL (1.7-2.3); Osmolality Calculated 285 mOsm/kg (285-295); Sodium 136 mmol/L (136-145); Thyroid Stimulating Hormone 1.62 uIU/mL (0.27-4.20); Total Bilirubin 0.7 mg/dL (0.15-1.2); Total Protein 6.5 g/dL (6.6-8.7)
[2021-01-07 07:07] LABS: Glucose Point of Care 79 mg/dL (70-110)
[2021-01-07] MEDS: donepezil 5 MG Tablet 10 MG PO (08:39)
[2021-01-07] MEDS: dexamethasone 4 mg Tablet 6 MG PO (08:41)
[2021-01-07] MEDS: aspirin 325 mg Tablet PO (08:41)
[2021-01-07] MEDS: guaiFENesin 600 mg Tablet PO ×2 (08:41→17:38)
[2021-01-07] MEDS: amlodipine 5 mg Tablet PO (08:41)
[2021-01-07] MEDS: chlorthalidone 25 mg Tablet PO (08:42)
[2021-01-07] MEDS: dorzolamide 2% Op Soln 10 mL Btl 1 DROP EYE-BOTH ×2 (08:42→18:54)
[2021-01-07] MEDS: cefTRIAXone 1,000 MG in sodium chloride 0.9% (plus) 50 ML 100 MG IV (08:44)
[2021-01-07] MEDS: metoprolol tartrate 50 mg Tablet PO ×2 (08:44→23:55)
[2021-01-07] MEDS: remdesivir 200 MG in sodium chloride 0.9% (100 ml) 100 ML 100 MG IV (10:10)
[2021-01-07] MEDS: potassium chloride ER 20 mEq Tablet 40 MEQ PO (10:10)
[2021-01-07 10:48] LABS: Glucose Point of Care 125 mg/dL (70-110)
--- NOTE | 2021-01-07 11:05 | P.PN_ITS ---
Subjective Subjective: Interval history: Patient was seen and examined this morning.She is AO *3. She is currently saturating well on 2ls oxygen via [place]. Tmax : 100.3 Her other vitals and labs have been reviewed. Medications: Reviewed: Yes Vitals/I&O/Wt Last Vital Signs Temp 98.4 F 01/07/21 10:47 Pulse 66 01/07/21 10:47 Resp 17 01/07/21 10:47 BP 109/64 01/07/21 10:47 Pulse Ox 94 01/07/21 10:47 01/06/21 01/07/21 01/07/21 22:59 06:59 14:59 Intake Total 370 / 520 270 / 270 Output Total 325 / 325 Balance 370 / 520 -55 / -55 Weight last 48 hrs Weight 70.307 kg Physical Exam Narrative: EXAM NARRATIVE: Alert and awake Const: COMMON NORMALS: patient oriented x3 HENMT: COMMON NORMALS: normocephalic and atraumatic HEAD & SCALP: normocephalic and atraumatic Chest: COMMONS NORMALS: normal inspection of the chest CHEST: Yes Symmetrical chest wall rise Resp: COMMON NORMALS: normal respiratory effort and clear to auscultation bilaterally EFFORT & INSPECTION: Yes symmetric chest movement AUSCULTATION: clear to auscultation bilaterally Cardio: COMMON NORMALS: regular rate, regular rhythm, S1 normal heart sound present, S2 normal heart sound present, No gallops present (Cardio), No murmurs present (Cardio), No rub (Cardio) and Peripheral pulses 2+ throughout RATE: regular rate RHYTHM: regular rhythm HEART SOUNDS: S1 normal heart sound present and S2 normal heart sound present PERIPHERAL PULSES: Peripheral pulses 2+ throughout GI: COMMON NORMALS: Normal to inspection, nondistended, normoactive bowel sounds present, Soft to palpation, non-tender, No hepatosplenomegaly present and no masses AUSCULTATION: Yes normoactive bowel sounds PALPATION: Yes Soft to palpation and Yes No hepatosplenomegaly present RECTAL EXAM: deferred Extremity: COMMON NORMALS: no clubbing, cyanosis or edema and no pedal edema Neuro: COMMON NORMALS: patient oriented x3 Data : 01/07/21 05:35 01/07/21 05:35 Micro: Microbiology 01/06/21 08:36 Blood Culture - Preliminary Blood NEGATIVE TO DATE 01/06/21 08:34 Blood Culture - Preliminary Blood NEGATIVE TO DATE A&P Assessment and plan (1) Pneumonia: COVID PNA : Continue Dexamethasone 6 mg I.V Daily Ascorbic Acid Zinc Remdesivir Nebs Supplemental Oxygen Status: Acute (2) COVID-19: Status: Acute (3) Acute encephalopathy: 2/2 TO Viral Syndrome. 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
[2021-01-07] MEDS: enoxaparin 40 mg/0.4 mL Syringe SUBCUT (11:18)
[2021-01-07 16:35] LABS: Glucose Point of Care 202 mg/dL (70-110)
[2021-01-07] MEDS: azithromycin 500 MG in sodium chloride 0.9% 250 ML 250 MG IV (17:29)
[2021-01-07 20:37] LABS: Glucose Point of Care 113 mg/dL (70-110)
--- NOTE | 2021-01-07 20:37 | CTR_ITS ---
PROCEDURE INFORMATION: Exam: CT Head Without Contrast Exam date and time: 01/07/2021 8:38 PM Age: 80 years old Clinical indication: Altered mental status/memory loss and weakness, facial; Patient HX: Left sided facial droop, covid +; Additional info: [place] alert TECHNIQUE: Imaging protocol: Computed tomography of the head without contrast. Radiation optimization: All CT scans at this facility use at least one of these dose optimization techniques: automated exposure control; mA and/or kV adjustment per patient size (includes targeted exams where dose is matched to clinical indication); or iterative reconstruction. Other technique: STROKE PROTOCOL was implemented. COMPARISON: No relevant prior studies available. RADIATION DOSE METRICS: Total DLP (mGy-cm): 1755.93 FINDINGS: Brain: Normal. No hemorrhage. Unremarkable white matter. No mass effect. Cerebral ventricles: No ventriculomegaly. Bones/joints: Unremarkable. No acute fracture. Paranasal sinuses: Visualized sinuses are unremarkable. No fluid levels. Mastoid air cells: Visualized mastoid air cells are well aerated. Soft tissues: Unremarkable. CT/CT head wo con* [id number] IMPRESSION: No acute intracranial abnormality. ASSESSMENT: ASPECTS ([place] Stroke Program Early CT Score) is 10. Radiation Dose CTDIVOL = (mGy): DLP = 1755.93 (mGy-cm)
[2021-01-07 21:28] LABS: Hematocrit 42.1 % (37.0-47.0); Hemoglobin 14.1 g/dL (11.5-15.3); Lymphocytes # 2.3 10^3/uL (0.8-4.8); Lymphocytes % 29.4 %; Mean Corpuscular HGB Conc 33.5 g/dL (30.0-36.0); Mean Corpuscular Hemoglobin 28.8 pg (28.0-34.0); Mean Corpuscular Volume 86.1 fL (81-99); Mean Platelet Volume 9.8 fL (7.4-10.4); Monocytes # 0.4 10^3/uL (0.2-0.9); Monocytes % 4.6 %; Neutrophils # 5.08 10^3/uL (1.8-7.7); Neutrophils % 65.1 %; Nucleated Red Blood Cells % 0 %; Platelet Count 369 10^3/cmm (130-400); Red Blood Count 4.89 10^6/uL (4.1-5.3); Red Cell Distribution Width 12.6 % (12.1-15.1); White Blood Count 7.8 10^3/uL (4.0-10.0)
[2021-01-07 21:29] LABS: Anion Gap 16.4 (5-19); Blood Urea Nitrogen 22 mg/dL (8-23); Calcium 8.7 mg/dL (8.5-10.5); Carbon Dioxide 30 mmol/L (22-29); Chloride 92 mmol/L (98-107); Glucose 109 mg/dL (65-115); LDL Cholesterol Direct 57 mg/dL (0-100); Osmolality Calculated 284 mOsm/kg (285-295); Potassium 3.4 mmol/L (3.5-5.1); Sodium 135 mmol/L (136-145)
--- NOTE | 2021-01-07 21:30 | PM.EVENT ---
Event Note Event Note: Code stroke was called by myself I was told by the nurse that patient has facial droop Her last known well time was about 52 minutes ago when vitals were taken At the time my evaluation NIH 3 for mild confusion, left-sided facial droop and mild dysarthria S1, S2 no murmur appreciated No acute respiratory distress Abdomen soft CT head was requested on stat basis which did not reveal any acute pathological findings Dr. Newberry was present during cranial imaging She did not recommend CTA head and neck or TPA because of low NIH score Plan: Start dual antiplatelet therapy and high-dose statin Continue neurochecks overnight
[2021-01-07 21:52] LABS: INR 1.05 (0.8-1.2)
[2021-01-07] MEDS: atorvastatin 40 mg Tablet PO (23:55)
[2021-01-07] MEDS: acetaminophen 325 mg Tablet 650 MG PO (23:56)
[2021-01-08] VITALS (10 sets, daily range): BP systolic 95–124; BP diastolic 60–75; PULSE 58–73; RESP 17–22; TEMP 36.4–37.5; O2SAT 92–96
[2021-01-08] MEDS: remdesivir 100 MG in sodium chloride 0.9% (100 ml) 100 ML IV (05:50)
[2021-01-08 06:09] LABS: Basophils % 0.1 %; Eosinophils % 0.1 %; Hematocrit 42.5 % (37.0-47.0); Lymphocytes # 2.6 10^3/uL (0.8-4.8); Lymphocytes % 36.4 %; Mean Corpuscular HGB Conc 32.9 g/dL (30.0-36.0); Mean Corpuscular Hemoglobin 28.6 pg (28.0-34.0); Mean Corpuscular Volume 86.9 fL (81-99); Mean Platelet Volume 10.3 fL (7.4-10.4); Monocytes # 0.4 10^3/uL (0.2-0.9); Neutrophils # 4.03 10^3/uL (1.8-7.7); Neutrophils % 56.6 %; Nucleated Red Blood Cells % 0 %; Platelet Count 355 10^3/cmm (130-400); Red Blood Count 4.89 10^6/uL (4.1-5.3); Red Cell Distribution Width 12.7 % (12.1-15.1); White Blood Count 7.1 10^3/uL (4.0-10.0)
[2021-01-08 06:26] LABS: Glucose Point of Care 97 mg/dL (70-110)
[2021-01-08 06:35] LABS: Alanine Aminotransferase 18 U/L (0-33); Albumin Level 3.4 g/dL (3.5-5.2); Alkaline Phosphatase 61 IU/L (35-105); Anion Gap 13.9 (5-19); Aspartate Amino Transferase 28 U/L (0-32); Blood Urea Nitrogen 24 mg/dL (8-23); Calcium 9.1 mg/dL (8.5-10.5); Carbon Dioxide 31 mmol/L (22-29); Chloride 96 mmol/L (98-107); Globulin 3.2 g/dL (1.3-4.6); Glucose 91 mg/dL (65-115); Osmolality Calculated 290 mOsm/kg (285-295); Sodium 138 mmol/L (136-145); Total Bilirubin 0.5 mg/dL (0.15-1.2); Total Protein 6.6 g/dL (6.6-8.7)
[2021-01-08 06:40] LABS: Potassium 2.9 mmol/L (3.5-5.1)
[2021-01-08] MEDS: zinc gluconate 50 mg Tablet PO (08:00)
[2021-01-08] MEDS: guaiFENesin 600 mg Tablet PO ×2 (08:00→17:05)
[2021-01-08] MEDS: ascorbic acid 500 mg Tablet 1000 MG PO ×2 (08:00→17:05)
[2021-01-08] MEDS: clopidogrel 75 mg Tablet PO (08:00)
[2021-01-08] MEDS: donepezil 5 MG Tablet 10 MG PO (08:00)
[2021-01-08] MEDS: aspirin 325 mg Tablet PO (08:01)
[2021-01-08] MEDS: amlodipine 5 mg Tablet PO (08:01)
[2021-01-08] MEDS: cefTRIAXone 1,000 MG in sodium chloride 0.9% (plus) 50 ML 100 MG IV (08:01)
[2021-01-08] MEDS: chlorthalidone 25 mg Tablet PO (08:02)
[2021-01-08] MEDS: dexamethasone 4 mg Tablet 6 MG PO (08:02)
[2021-01-08] MEDS: dorzolamide 2% Op Soln 10 mL Btl 1 DROP EYE-BOTH ×2 (08:04→17:05)
[2021-01-08] MEDS: metoprolol tartrate 50 mg Tablet PO (08:06)
[2021-01-08] MEDS: potassium chloride ER 20 mEq Tablet 40 MEQ PO (09:23)
--- NOTE | 2021-01-08 09:48 | PM.SAN ---
Stroke Alert Activation ED Arrival Date: 01/07/21 ED Arrival Time: 20:37 ED Physican at Bedside: 20:37 Last Known Normal/at Baseline: 1-2 hours ago Other Last Known Well Infomation: I was called stat for stroke team for this 80-year-old woman who was in the hospital for Covid. She talked with the nurses aide an hour ago and was functioning normally at that time. She was awakened by the nursing staff at 2030 and was noted to be confused, could not say her age or the date and had left-sided weakness. Dr. Zuluaga was called to the bedside and activated the stroke team. I had just left the hospital and turned around and came back. I encountered the patient on her way to CT scan and followed her to CT. I watched her scan on the monitor and observed no acute changes, mild diffuse atrophy. I asked Dr. Wolf to join me and we performed an NIH stroke scale together. Her score was 0 by that time with no significant weakness. She complained of feeling tired. My stroke scale is detailed below. She did not appear to require TPA. I asked that the patient have frequent neurologic checks and be started on Plavix and aspirin for stroke prophylaxis. Stroke Alert Activated by: Nursing staff medical surgery floor Stroke Alert Activation Time: 20:37 Stroke MD @ Bedside Time: 20:45 NIH Stroke Scale Time: 20:50 NIH stroke score NIHSS: Level Of Consciousness - 1a: 0 Level Of Consciousness Questions - 1b: Both Correct Level Of Consciousness Commands - 1c: Both Correct Best Gaze - 2: Normal Visual Tapia - 3: No Visual Loss Facial Palsy - 4: Normal Motor Arm Right - 5: No Drift Motor Arm Left - 5: No Drift Motor Leg Right - 6: No Drift Motor Leg Left - 6: No Drift Limb Ataxia - 7: Absent Sensory - 8: Normal Best Language - 9: No Aphasia Dysarthia - 10: Normal Extinction And Inattention - 11: 0 Score: Total Score: 0 Stroke Alert Data/Treatment Time to CT of Head: 20:45 CT Results Time: 20:50 CT Impression: Normal read by me Stroke Risk Factors: hypertension and diabetes mellitus tPA Contraindication: tPA Contraindication: Treatment not indcated tPA Admin Prior to Arrival: No Patient & Family Educated on: Treament Plan Standardized Stroke Orders Used: No Other Information: Dr. Zuluaga and I discussed the patient's transient left-sided weakness, now resolved. TPA not indicated. No further work-up indicated at this time. Increased frequency of neurochecks and add Plavix to her medication list and I will be glad to see her in the office within several weeks of discharge. Critical Care Time Critical Care Time: less than 30 mins A&P Assessment and plan (1) TIA (transient ischemic attack): Status: Acute Coding Level of Care Code Acute Electronic Masking System Operator for Jez Albright Diagnoses TIA (transient ischemic attack) G45.9
[2021-01-08 11:26] LABS: Glucose Point of Care 142 mg/dL (70-110)
[2021-01-08] MEDS: enoxaparin 40 mg/0.4 mL Syringe SUBCUT (11:37)
--- NOTE | 2021-01-08 11:40 | P.PN_ITS ---
Subjective Subjective: Interval history: Patient was seen and examined this morning.She is AO *3. She is currently saturating well on 3ls oxygen via [place]. Stroke Alert was called last night by the night team. C.T head without contrast : No acute intracranial pathology. Not a candidate for TPA per neurologist based on NIH stroke scale of : 0. Tmax : 102.8 Her other vitals and labs have been reviewed. Medications: Reviewed: Yes Vitals/I&O/Wt Last Vital Signs Temp 98.2 F 01/08/21 11:31 Pulse 58 L 01/08/21 11:31 Resp 17 01/08/21 11:31 BP 95/60 01/08/21 11:31 Pulse Ox 96 01/08/21 11:31 01/07/21 01/08/21 01/08/21 22:59 06:59 14:59 Intake Total 370 / 860 100 / 960 290 / 290 Output Total 200 / 200 Balance 370 / 535 100 / 635 90 / 90 Physical Exam Narrative: EXAM NARRATIVE: Alert and awake Const: COMMON NORMALS: patient oriented x3 HENMT: COMMON NORMALS: normocephalic and atraumatic HEAD & SCALP: normocephalic and atraumatic Chest: COMMONS NORMALS: normal inspection of the chest CHEST: Yes Symmetrical chest wall rise Resp: COMMON NORMALS: normal respiratory effort and clear to auscultation bilaterally EFFORT & INSPECTION: Yes symmetric chest movement AUSCULTATION: clear to auscultation bilaterally Cardio: COMMON NORMALS: regular rate, regular rhythm, S1 normal heart sound present, S2 normal heart sound present, No gallops present (Cardio), No murmurs present (Cardio), No rub (Cardio) and Peripheral pulses 2+ throughout RATE: regular rate RHYTHM: regular rhythm HEART SOUNDS: S1 normal heart sound present and S2 normal heart sound present PERIPHERAL PULSES: Peripheral pulses 2+ throughout GI: COMMON NORMALS: Normal to inspection, nondistended, normoactive bowel sounds present, Soft to palpation, non-tender, No hepatosplenomegaly present and no masses AUSCULTATION: Yes normoactive bowel sounds PALPATION: Yes Soft to palpation and Yes No hepatosplenomegaly present RECTAL EXAM: deferred Extremity: COMMON NORMALS: no clubbing, cyanosis or edema and no pedal edema Neuro: COMMON NORMALS: patient oriented x3 Data : 01/08/21 05:14 01/08/21 05:14 Micro: Microbiology 01/06/21 08:36 Blood Culture - Preliminary Blood NEGATIVE TO DATE 01/06/21 08:34 Blood Culture - Preliminary Blood NEGATIVE TO DATE A&P Assessment and plan (1) TIA (transient ischemic attack): Stroke Alert was called last night by the night team. C.T head without contrast : No acute intracranial pathology. Not a candidate for TPA per neurologist based on NIH stroke scale of : 0. No further work up needed. Aspirin 325 mg po daily Plavix 75 mg po daily Lipitor 80 mg po daily Follow 2 D echo Follow Neurologist ( as outpatient upon discharge) Status: Acute (2) Pneumonia: COVID PNA : Continue Dexamethasone 6 mg I.V Daily Ascorbic Acid Zinc Remdesivir cef/Sulema/Vancomycin Follow MRSA PCR Blood Culture :NTD Urine Culture : Sputum Culture Nebs Supplemental Oxygen Status: Acute (3) COVID-19: Status: Acute (4) Acute encephalopathy: 2/2 TO Viral Syndrome. 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
[2021-01-08] MEDS: azithromycin 500 MG in sodium chloride 0.9% 250 ML 250 MG IV (16:55)
[2021-01-08 17:13] LABS: Glucose Point of Care 190 mg/dL (70-110)
[2021-01-08] MEDS: sodium chloride 0.9% 1,000 ML 75 ML IV (18:14)
--- NOTE | 2021-01-08 21:21 | PC.PHAR ---
Vancomycin is dosed at 1500mg IVPB every 24 hours to produce a predicted trough level of 12.64 (population based phamacokinetic analysis). A trough level has been ordered from the lab to be obtained before the fourth dose to confirm and adjust if needed.
[2021-01-08 21:35] LABS: Glucose Point of Care 144 mg/dL (70-110)
[2021-01-08] MEDS: atorvastatin 40 mg Tablet 80 MG PO (22:01)
[2021-01-08] MEDS: latanoprost 0.005% Op Soln 2.5 mL Btl 1 DROP EYE-BOTH (22:04)
[2021-01-08] MEDS: vancomycin 1,500 MG/300 ML PIGGYBACK 150 MG IV (22:27)
[2021-01-09] VITALS (10 sets, daily range): BP systolic 112–127; BP diastolic 61–73; PULSE 66–91; RESP 16–20; TEMP 36.5–36.8; O2SAT 93–98
[2021-01-09] MEDS: remdesivir 100 MG in sodium chloride 0.9% (100 ml) 100 ML IV (05:39)
[2021-01-09 05:50] LABS: Eosinophils % 0.2 %; Hematocrit 41.2 % (37.0-47.0); Hemoglobin 13.5 g/dL (11.5-15.3); Lymphocytes # 2.5 10^3/uL (0.8-4.8); Lymphocytes % 41.2 %; Mean Corpuscular HGB Conc 32.8 g/dL (30.0-36.0); Mean Corpuscular Hemoglobin 28.7 pg (28.0-34.0); Mean Corpuscular Volume 87.5 fL (81-99); Mean Platelet Volume 10.3 fL (7.4-10.4); Monocytes # 0.4 10^3/uL (0.2-0.9); Monocytes % 6.8 %; Neutrophils % 51.1 %; Nucleated Red Blood Cells % 0 %; Platelet Count 340 10^3/cmm (130-400); Red Blood Count 4.71 10^6/uL (4.1-5.3); Red Cell Distribution Width 12.8 % (12.1-15.1); White Blood Count 6.1 10^3/uL (4.0-10.0)
--- NOTE | 2021-01-09 06:00 | XR_ITS ---
WS: [id number] PORTABLE CHEST HISTORY: SOB COMPARISON: 01/06/2021 Continued mild progression of interstitial and reticular thickening throughout both lungs. No dense a windy of consolidation. No pleural effusion or pneumothorax. Cardiac size: Normal. Mediastinum/Aorta: Mild atherosclerosis aorta. Diffuse osteopenia. XR/XR chest 1V portable [id number] IMPRESSION: 1. Continued progression of interstitial thickening bilaterally. Differential includes pneumonitis and interstitial edema. 2. No dense consolidation or pneumonia.
[2021-01-09 06:08] LABS: Alanine Aminotransferase 18 U/L (0-33); Albumin Level 3.1 g/dL (3.5-5.2); Alkaline Phosphatase 57 IU/L (35-105); Anion Gap 14.1 (5-19); Aspartate Amino Transferase 22 U/L (0-32); Blood Urea Nitrogen 23 mg/dL (8-23); Calcium 8.4 mg/dL (8.5-10.5); Carbon Dioxide 26 mmol/L (22-29); Chloride 101 mmol/L (98-107); Globulin 2.9 g/dL (1.3-4.6); Glucose 97 mg/dL (65-115); Osmolality Calculated 290 mOsm/kg (285-295); Potassium 3.1 mmol/L (3.5-5.1); Sodium 138 mmol/L (136-145); Total Bilirubin 0.5 mg/dL (0.15-1.2)
[2021-01-09 06:49] LABS: Glucose Point of Care 100 mg/dL (70-110)
--- NOTE | 2021-01-09 07:00 | USCV_ITS ---
Nadia Amaya Age: 80 Gender: F : 1940 Exam Date: 01/09/2021 05:26 Ordering Phys: Odell Wolf MD Technologist: Cherie Camargo Exam Location: [facility] [place] Indication: SOB BP: 112 / 66 HR: 65 Rhythm: Sinus Technical Quality: Adequate MEASUREMENTS (Male / Female) Normal Values 2D ECHO LV Diastolic Diameter PLAX 3.7 cm 4.2 - 5.9 / 3.9 - 5.3 cm LV Systolic Diameter PLAX 2.7 cm IVS Diastolic Thickness 1.1 cm 0.6 - 1.0 / 0.6 - 0.9 cm IVS Systolic Thickness 1.4 cm LVPW Diastolic Thickness 1.3 cm 0.6 - 1.0 / 0.6 - 0.9 cm LVPW Systolic Thickness 1.8 cm LVOT Diameter 2.0 cm LV Ejection Fraction 2D Teich 52.4 % LV Ejection Fraction MOD 2C 63.4 % LV Ejection Fraction 2C AL 63.1 % LA Diameter 3.3 cm LA Width 3.8 cm LA Height 4.8 cm RA Width 3.5 cm RA Height 4.5 cm Aorta at Sinotubular Diameter 1.6 cm M-MODE LV Diastolic Diameter MM 5.3 cm 4.2 - 5.9 / 3.9 - 5.3 cm LV Systolic Diameter MM 3.6 cm LV Ejection Fraction MM Teich 59.4 % IVS Diastolic Thickness MM 0.6 cm 0.6 - 1.0 / 0.6 - 0.9 cm IVS Systolic Thickness MM 1.2 cm LVPW Diastolic Thickness MM 0.7 cm 0.6 - 1.0 / 0.6 - 0.9 cm LVPW Systolic Thickness MM 1.0 cm Aortic Annulus Diameter 2.9 cm LA Ao Ratio MM 1.3 MV E Point Septal Separation 0.3 cm DOPPLER AV Peak Velocity 129.0 cm/s LVOT Peak Velocity 99.0 cm/s AV Area Cont Eq vti 3.1 cm squared AV Area Cont Eq pk 2.4 cm squared MV Area PHT 3.0 cm squared Mitral E to A Ratio 0.7 MV E' Velocity 35.0 cm/s Mitral E to MV E' Ratio 5.6 Mitral E to LV E' Lateral Ratio 5.3 Mitral E to LV E' Septal Ratio 5.9 TR Peak Velocity 180.7 cm/s TR Peak Gradient 13.1 mmHg TV Peak E Velocity 85.0 cm/s Right Atrial Pressure 3.0 mmHg Pulmonary Artery Systolic Pressu 16.1 mmHg PV Peak Velocity 96.0 cm/s RV Acceleration Time 0.1 s RV Ejection Time 0.4 s RV AcT/ET 0.3 FINDINGS Left Ventricle Normal left ventricular size and systolic function, EF 68 %. No regional wall motion abnormalities.Grade I/IV diastolic dysfunction (abnormal relaxation filling pattern), normal to mildly elevated filling pressures. Right Ventricle Normal right ventricular size. Right Atrium Normal right atrial size. Left Atrium Mildly increased left atrial size. Mitral Valve Thickened mitral valve. Aortic Valve Thickened aortic valve. Tricuspid Valve Trace of tricuspid valve regurgitation. Pulmonic Valve Trace of pulmonary valve regurgitation. Pericardium No pericardial effusion. Aorta Normal ascending aorta dimension. CONCLUSIONS Normal left ventricular size and systolic function, EF 68 %. No regional wall motion abnormalities.Grade I/IV diastolic dysfunction (abnormal relaxation filling pattern), normal to mildly elevated filling pressures. Mildly increased left atrial size. Thickened aortic and mitral valves. Trace of tricuspid and pulmonic regurgitation. There are no intracardiac masses. There is no pericardial effusion. No previous study is available for comparison. Dr Cedrick Youssef MD FACC (Electronically Signed) Final Date: 09 January 2021 17:25 S
[2021-01-09 07:08] LABS: Glucose Point of Care 104 mg/dL (70-110)
[2021-01-09] MEDS: sodium chloride 0.9% 1,000 ML 75 ML IV (07:08)
[2021-01-09] MEDS: dexamethasone 4 mg Tablet 6 MG PO (08:07)
[2021-01-09] MEDS: ascorbic acid 500 mg Tablet 1000 MG PO ×2 (08:07→17:37)
[2021-01-09] MEDS: donepezil 5 MG Tablet 10 MG PO (08:07)
[2021-01-09] MEDS: cefTRIAXone 1,000 MG in sodium chloride 0.9% (plus) 50 ML 100 MG IV (08:08)
[2021-01-09] MEDS: guaiFENesin 600 mg Tablet PO ×2 (08:08→17:37)
[2021-01-09] MEDS: clopidogrel 75 mg Tablet PO (08:08)
[2021-01-09] MEDS: zinc gluconate 50 mg Tablet PO (08:08)
[2021-01-09] MEDS: aspirin 325 mg EC Tablet PO (08:08)
[2021-01-09] MEDS: dorzolamide 2% Op Soln 10 mL Btl 1 DROP EYE-BOTH ×2 (08:09→17:37)
[2021-01-09 11:23] LABS: Glucose Point of Care 141 mg/dL (70-110)
[2021-01-09] MEDS: enoxaparin 40 mg/0.4 mL Syringe SUBCUT (11:29)
[2021-01-09 17:18] LABS: Glucose Point of Care 184 mg/dL (70-110)
[2021-01-09] MEDS: azithromycin 500 MG in sodium chloride 0.9% 250 ML 250 MG IV (17:36)
[2021-01-09] MEDS: latanoprost 0.005% Op Soln 2.5 mL Btl 1 DROP EYE-BOTH (20:43)
[2021-01-09] MEDS: atorvastatin 40 mg Tablet 80 MG PO (20:43)
--- NOTE | 2021-01-09 20:51 | PM.PN ---
Subjective Subjective: Interval history: Patient was seen and examined this morning.She is AO *3. She is currently saturating well on 3ls oxygen via [place]. She states that her shortness of breath has improved a lot. She is feeling much better and thinks that she is ready to go home. She has remained afebrile. Last temperature spike was noted on 01/07 at 10 p.m. Her other vitals and labs have been reviewed. Medications: Reviewed: Yes Vitals/I&O/Wt Last Vital Signs Temp 97.7 F 01/09/21 20:00 Pulse 75 01/09/21 20:00 Resp 18 01/09/21 20:00 BP 116/73 01/09/21 20:00 Pulse Ox 98 01/09/21 20:00 01/09/21 01/09/21 01/09/21 06:59 14:59 22:59 Intake Total 400 / 1420 1701.25 / 1701.25 310 / 2011.25 Output Total 600 / 600 250 / 850 Balance 400 / 470 1101.25 / 1101.25 60 / 1161.25 Physical Exam Narrative: EXAM NARRATIVE: Alert and awake Const: COMMON NORMALS: patient oriented x3 HENMT: COMMON NORMALS: normocephalic and atraumatic HEAD & SCALP: normocephalic and atraumatic Chest: COMMONS NORMALS: normal inspection of the chest CHEST: Yes Symmetrical chest wall rise Resp: COMMON NORMALS: normal respiratory effort and clear to auscultation bilaterally EFFORT & INSPECTION: Yes symmetric chest movement AUSCULTATION: clear to auscultation bilaterally Cardio: COMMON NORMALS: regular rate, regular rhythm, S1 normal heart sound present, S2 normal heart sound present, No gallops present (Cardio), No murmurs present (Cardio), No rub (Cardio) and Peripheral pulses 2+ throughout RATE: regular rate RHYTHM: regular rhythm HEART SOUNDS: S1 normal heart sound present and S2 normal heart sound present PERIPHERAL PULSES: Peripheral pulses 2+ throughout GI: COMMON NORMALS: Normal to inspection, nondistended, normoactive bowel sounds present, Soft to palpation, non-tender, No hepatosplenomegaly present and no masses AUSCULTATION: Yes normoactive bowel sounds PALPATION: Yes Soft to palpation and Yes No hepatosplenomegaly present RECTAL EXAM: deferred Extremity: COMMON NORMALS: no clubbing, cyanosis or edema and no pedal edema Neuro: COMMON NORMALS: patient oriented x3 Data : 01/09/21 05:15 01/09/21 05:15 A&P Assessment and plan (1) TIA (transient ischemic attack): Stroke Alert was called last night by the night team. C.T head without contrast : No acute intracranial pathology. Not a candidate for TPA per neurologist based on NIH stroke scale of : 0. No further work up needed. Aspirin 325 mg po daily Plavix 75 mg po daily Lipitor 80 mg po daily Follow 2 D echo: Normal LV size and systolic function. Estimated EF 68% . No RWMA , Grade I/IV diastolic dysfunction (abnormal relaxation filling pattern), no intracardiac mass, no pericardial effusion. Follow Neurologist ( as outpatient upon discharge) Status: Acute (2) Pneumonia: COVID PNA : Continue Dexamethasone 6 mg I.V Daily Ascorbic Acid Zinc Remdesivir cef/Sulema/Vancomycin Follow MRSA PCR Blood Culture :NTD Urine Culture : Sputum Culture: Nebs Supplemental Oxygen Status: Acute (3) COVID-19: Status: Acute (4) Acute encephalopathy: Ac Metabolic encephalopathy 2/2 TO Viral Syndrome. Status: Acute (5) COPD (chronic obstructive pulmonary disease): Not in exacerbation Status: Acute (6) Hypertension: Currently blood pressure is well controlled. We will continue to hold home antihypertensive medication. Status: Acute Qualifiers: Hypertension type: essential hypertension Qualified Code(s): I10 - Essential (primary) hypertension (7) Hypokalemia: Monitor and replace Status: Acute (8) Diabetes: LDSSI FSG Status: Acute Additional A&P Information DVT PPX: Lovenox 40 mg sc daily Code status :Full code Disposition :Home Attestations Medical Necessity Statement*: Patient is in hospital for management of Covid pneumonia. 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
[2021-01-09 21:17] LABS: Glucose Point of Care 141 mg/dL (70-110)
[2021-01-09] MEDS: vancomycin 1,500 MG/300 ML PIGGYBACK 150 MG IV (23:42)
[2021-01-10] VITALS (11 sets, daily range): BP systolic 101–151; BP diastolic 63–75; PULSE 62–83; RESP 16–20; TEMP 36.2–36.7; O2SAT 95–98
[2021-01-10 07:02] LABS: Glucose Point of Care 88 mg/dL (70-110)
[2021-01-10] MEDS: remdesivir 100 MG in sodium chloride 0.9% (100 ml) 100 ML IV (09:13)
[2021-01-10] MEDS: dorzolamide 2% Op Soln 10 mL Btl 1 DROP EYE-BOTH ×2 (09:16→17:03)
[2021-01-10] MEDS: dexamethasone 4 mg Tablet 6 MG PO (09:16)
[2021-01-10] MEDS: ascorbic acid 500 mg Tablet 1000 MG PO ×2 (09:16→17:04)
[2021-01-10] MEDS: guaiFENesin 600 mg Tablet PO ×2 (09:17→17:04)
[2021-01-10] MEDS: zinc gluconate 50 mg Tablet PO (09:17)
[2021-01-10] MEDS: clopidogrel 75 mg Tablet PO (09:17)
[2021-01-10] MEDS: donepezil 5 MG Tablet 10 MG PO (09:17)
[2021-01-10] MEDS: aspirin 325 mg EC Tablet PO (09:17)
[2021-01-10 09:58] LABS: Basophils % 0.1 %; Eosinophils % 0.3 %; Hematocrit 42.6 % (37.0-47.0); Hemoglobin 13.9 g/dL (11.5-15.3); Lymphocytes # 3.4 10^3/uL (0.8-4.8); Lymphocytes % 29.1 %; Mean Corpuscular HGB Conc 32.6 g/dL (30.0-36.0); Mean Corpuscular Hemoglobin 28.3 pg (28.0-34.0); Mean Corpuscular Volume 86.8 fL (81-99); Mean Platelet Volume 10.1 fL (7.4-10.4); Monocytes # 0.5 10^3/uL (0.2-0.9); Monocytes % 4.2 %; Neutrophils # 7.76 10^3/uL (1.8-7.7); Neutrophils % 65.9 %; Nucleated Red Blood Cells % 0 %; Platelet Count 411 10^3/cmm (130-400); Red Blood Count 4.91 10^6/uL (4.1-5.3); Red Cell Distribution Width 12.8 % (12.1-15.1); White Blood Count 11.8 10^3/uL (4.0-10.0)
[2021-01-10 10:21] LABS: Anion Gap 14.8 (5-19); Blood Urea Nitrogen 18 mg/dL (8-23); Calcium 9.1 mg/dL (8.5-10.5); Carbon Dioxide 26 mmol/L (22-29); Chloride 98 mmol/L (98-107); Glucose 147 mg/dL (65-115); Osmolality Calculated 287 mOsm/kg (285-295); Sodium 136 mmol/L (136-145)
[2021-01-10 10:26] LABS: Potassium 2.8 mmol/L (3.5-5.1)
[2021-01-10] MEDS: cefTRIAXone 1,000 MG in sodium chloride 0.9% (plus) 50 ML 100 MG IV (10:27)
[2021-01-10] MEDS: enoxaparin 40 mg/0.4 mL Syringe SUBCUT (10:31)
[2021-01-10 11:15] LABS: Glucose Point of Care 134 mg/dL (70-110)
[2021-01-10] MEDS: potassium chloride premix 100 ML 25 MEQ IV (13:30)
--- NOTE | 2021-01-10 13:41 | PM.PN ---
Subjective Subjective: Interval history: Patient was seen and examined this morning.She is AO *3. She is currently saturating well on 3ls oxygen via [place]. She states that her shortness of breath has improved a lot. She is feeling much better and thinks that she is ready to go home. She has remained afebrile. Last temperature spike was noted on 01/07 at 10 p.m. Her other vitals and labs have been reviewed. Medications: Reviewed: Yes Vitals/I&O/Wt Last Vital Signs Temp 97.2 F L 01/10/21 11:21 Pulse 70 01/10/21 11:21 Resp 16 01/10/21 11:21 BP 151/75 01/10/21 11:21 Pulse Ox 97 01/10/21 11:21 01/09/21 01/10/21 01/10/21 22:59 06:59 14:59 Intake Total 310 / 2010.25 540 / 2551.25 510 / 510 Output Total 250 / 850 900 / 1750 500 / 500 Balance 60 / 1161.25 -360 / 801.25 Physical Exam Narrative: EXAM NARRATIVE: Alert and awake Const: COMMON NORMALS: patient oriented x3 HENMT: COMMON NORMALS: normocephalic and atraumatic HEAD & SCALP: normocephalic and atraumatic Chest: COMMONS NORMALS: normal inspection of the chest CHEST: Yes Symmetrical chest wall rise Resp: COMMON NORMALS: normal respiratory effort and clear to auscultation bilaterally EFFORT & INSPECTION: Yes symmetric chest movement AUSCULTATION: clear to auscultation bilaterally Cardio: COMMON NORMALS: regular rate, regular rhythm, S1 normal heart sound present, S2 normal heart sound present, No gallops present (Cardio), No murmurs present (Cardio), No rub (Cardio) and Peripheral pulses 2+ throughout RATE: regular rate RHYTHM: regular rhythm HEART SOUNDS: S1 normal heart sound present and S2 normal heart sound present PERIPHERAL PULSES: Peripheral pulses 2+ throughout GI: COMMON NORMALS: Normal to inspection, nondistended, normoactive bowel sounds present, Soft to palpation, non-tender, No hepatosplenomegaly present and no masses AUSCULTATION: Yes normoactive bowel sounds PALPATION: Yes Soft to palpation and Yes No hepatosplenomegaly present RECTAL EXAM: deferred Extremity: COMMON NORMALS: no clubbing, cyanosis or edema and no pedal edema Neuro: COMMON NORMALS: patient oriented x3 Data : 01/10/21 09:40 01/10/21 09:40 Micro: Microbiology 01/09/21 15:15 Urine Culture - Preliminary Urine,Voided A&P Assessment and plan (1) TIA (transient ischemic attack): Stroke Alert was called last night by the night team. C.T head without contrast : No acute intracranial pathology. Not a candidate for TPA per neurologist based on NIH stroke scale of : 0. No further work up needed. Aspirin 325 mg po daily Plavix 75 mg po daily Lipitor 80 mg po daily Follow 2 D echo: Normal LV size and systolic function. Estimated EF 68% . No RWMA , Grade I/IV diastolic dysfunction (abnormal relaxation filling pattern), no intracardiac mass, no pericardial effusion. Follow Neurologist ( as outpatient upon discharge) Status: Acute (2) Pneumonia: COVID PNA : Continue Dexamethasone 6 mg I.V Daily Ascorbic Acid Zinc Remdesivir cef/Sulema/Vancomycin Follow MRSA PCR Blood Culture :NTD Urine Culture : Sputum Culture: Nebs Supplemental Oxygen Status: Acute (3) COVID-19: Status: Acute (4) Acute encephalopathy: Ac Metabolic encephalopathy 2/2 TO Viral Syndrome. Status: Acute (5) COPD (chronic obstructive pulmonary disease): Not in exacerbation Status: Acute (6) Hypertension: Currently blood pressure is well controlled. We will continue to hold home antihypertensive medication. Status: Acute Qualifiers: Hypertension type: essential hypertension Qualified Code(s): I10 - Essential (primary) hypertension (7) Hypokalemia: Monitor and replace Status: Acute (8) Diabetes: LDSSI FSG Status: Acute Additional A&P Information DVT PPX: Lovenox 40 mg sc daily Code status :Full code Disposition :Home Attestations Medical Necessity Statement*: Patient is doing hospital for the management of Covid pneumonia, TIA. 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
[2021-01-10] MEDS: azithromycin 500 MG in sodium chloride 0.9% 250 ML 250 MG IV (15:37)
[2021-01-10] MEDS: potassium chloride ER 20 mEq Tablet 40 MEQ PO ×2 (15:37→20:30)
[2021-01-10] MEDS: FUROsemide 10 mg/mL SDV 4mL 40 MG IVP (15:37)
[2021-01-10 16:07] LABS: Glucose Point of Care 245 mg/dL (70-110)
[2021-01-10] MEDS: atorvastatin 40 mg Tablet 80 MG PO (20:30)
[2021-01-10] MEDS: latanoprost 0.005% Op Soln 2.5 mL Btl 1 DROP EYE-BOTH (20:31)
[2021-01-10 21:28] LABS: Glucose Point of Care 166 mg/dL (70-110)
[2021-01-10] MEDS: vancomycin 1,500 MG/300 ML PIGGYBACK 150 MG IV (21:58)
[2021-01-11] VITALS (8 sets, daily range): BP systolic 100–134; BP diastolic 67–77; PULSE 67–91; RESP 15–20; TEMP 35.8–37.1; O2SAT 96–98
[2021-01-11] MEDS: remdesivir 100 MG in sodium chloride 0.9% (100 ml) 100 ML IV (05:59)
[2021-01-11 06:18] LABS: Basophils % 0.1 %; Eosinophils % 0.2 %; Hematocrit 38.8 % (37.0-47.0); Hemoglobin 13.1 g/dL (11.5-15.3); Lymphocytes # 3.1 10^3/uL (0.8-4.8); Mean Corpuscular HGB Conc 33.8 g/dL (30.0-36.0); Mean Corpuscular Hemoglobin 29.1 pg (28.0-34.0); Mean Corpuscular Volume 86.2 fL (81-99); Mean Platelet Volume 10.1 fL (7.4-10.4); Monocytes # 0.5 10^3/uL (0.2-0.9); Monocytes % 6.3 %; Neutrophils # 4.87 10^3/uL (1.8-7.7); Neutrophils % 56.5 %; Nucleated Red Blood Cells % 0 %; Platelet Count 373 10^3/cmm (130-400); Red Cell Distribution Width 12.9 % (12.1-15.1); White Blood Count 8.6 10^3/uL (4.0-10.0)
[2021-01-11 06:49] LABS: Glucose Point of Care 92 mg/dL (70-110)
[2021-01-11 07:15] LABS: Anion Gap 12.6 (5-19); Blood Urea Nitrogen 20 mg/dL (8-23); Calcium 8.6 mg/dL (8.5-10.5); Carbon Dioxide 27 mmol/L (22-29); Chloride 105 mmol/L (98-107); Glucose 78 mg/dL (65-115); Osmolality Calculated 293 mOsm/kg (285-295); Potassium 3.6 mmol/L (3.5-5.1); Sodium 141 mmol/L (136-145)
[2021-01-11] MEDS: zinc gluconate 50 mg Tablet PO (08:21)
[2021-01-11] MEDS: aspirin 325 mg EC Tablet PO (08:21)
[2021-01-11] MEDS: dexamethasone 4 mg Tablet 6 MG PO (08:21)
[2021-01-11] MEDS: donepezil 5 MG Tablet 10 MG PO (08:22)
[2021-01-11] MEDS: guaiFENesin 600 mg Tablet PO (08:22)
[2021-01-11] MEDS: potassium chloride ER 20 mEq Tablet 40 MEQ PO (08:22)
[2021-01-11] MEDS: ascorbic acid 500 mg Tablet 1000 MG PO (08:23)
[2021-01-11] MEDS: cefTRIAXone 1,000 MG in sodium chloride 0.9% (plus) 50 ML 100 MG IV (08:23)
[2021-01-11] MEDS: clopidogrel 75 mg Tablet PO (08:23)
[2021-01-11] MEDS: dorzolamide 2% Op Soln 10 mL Btl 1 DROP EYE-BOTH (08:24)
--- NOTE | 2021-01-11 10:55 | PC.SOCIAL ---
IMM Updated Updated pt on Pg 2 IMM. No questions voiced. Provided pt a copy. Signed, dated, timed copy in chart.
--- NOTE | 2021-01-11 11:10 | P.DS_ITS ---
Discharge Providers Date of Admission: 01/06/21 10:06 Date of Discharge: January 11, 2021 Attending Provider at Admission: Odell Wolf MD Attending Provider at Discharge: Odell Wolf MD Primary Care Provider: HÉCTOR Black Diagnoses at Discharge Discharge Diagnosis (1) TIA (transient ischemic attack): Status: Resolved (2) Pneumonia: Status: Resolved (3) COVID-19: Status: Resolved (4) Acute encephalopathy: Status: Resolved (5) COPD (chronic obstructive pulmonary disease): Status: Chronic (6) Hypertension: Status: Chronic Qualifiers: Hypertension type: essential hypertension Qualified Code(s): I10 - Essential (primary) hypertension (7) Diabetes: Status: Chronic Reason for Visit Reason for Visit: AMS / SHORT OF BREATH / COVID + Hospital Course Hospital Course 80 year old female with PMH of CAD,HTN,DM, DLD , she was recently diagnosed with COVID on 12/31 and was discharged home from the ER ON 2Ls oxygen via nc as well as dexamethasone 6 mg po came in with c/o confusion. When I evaluated the patient she was complaining of generalized weakness as well inability to walk due to weakness.She also experienced fall at home,in which there was no loss consciousness or any head injury. ER Course :CTA chest with contrast :No pulmonary embolism. Severe centrilobular and paraseptal emphysema with developing pneumonia in the RIGHT upper lobe. Additional interstitial thickening in the posterior lower lung forbes probably areas of pneumonitis. Pulmonary hypertension. XR chest 1V portable: Very mild progression of the interstitial thickening suggesting a superimposed pneumonitis on patient's chronic interstitial lung disease. EKG: NSR : NONSPECIFIC T-WAVE ABNORMALITY: ABG :Ph : 7.54 , PCO2: 39 , PO2: 82 FIO2: 28 % Pertinent labs : Troponin T :Baseline : 12 2H: 12.15 Delta 2H: 0.15 6H: 9.88, Urine analysis :Clean ECA Medications:Dexamaethasone : 6 mg I.V * 1 Dose , Levofloxacin 750 mg I.V * 1 dose . He was admitted for the management of acute metabolic encephalopathy secondary to Covid pneumonia. She completed 5 days course of remdesivir, as well as dexamethasone,along with ascorbic acid and zinc. During the hospital stay she was intermittently spiking temperature, she was kept on ceftriaxone, azithromycin, later vancomycin was also added, blood cultures were negative, urine culture was negative. Fever had stopped for multiple days prior to the discharge. She was discharged on levofloxacin for additional 5 days.Her metabolic encephalopathy had completely resolved before the discharge.Hospital course was also complicated by an episode of TIA, CT head without contrast done at that time: Failed to show any intracranial pathology, Dr. Newberry had evaluated the patient that night, and started her on aspirin as well as Plavix along with Lipitor. 2D echo done later: Showed normal left ventricular size and systolic function, EF 68%, no RWMA, Grade I/IV diastolic dysfunction (abnormal relaxation filling pattern), normal to mildly elevated filling pressures.Thickened aortic and mitral valves. Trace of tricuspid and pulmonic regurgitation. There are no intracardiac masses.She will continue to follow Dr. Newberry as an outpatient. She also required 2 L of oxygen at the time of discharge. Patient responded well to the above medical management.And was discharged in stable condition to home. She will continue to follow her primary care physician as an outpatient. Physical Exam Narrative: EXAM NARRATIVE: Alert and awake Const: COMMON NORMALS: patient oriented x3 HENMT: COMMON NORMALS: normocephalic and atraumatic HEAD & SCALP: normocephalic and atraumatic Chest: COMMONS NORMALS: normal inspection of the chest CHEST: Yes Symmetrical chest wall rise Resp: COMMON NORMALS: normal respiratory effort and clear to auscultation bilaterally EFFORT & INSPECTION: Yes symmetric chest movement AUSCULTATION: clear to auscultation bilaterally Cardio: COMMON NORMALS: regular rate, regular rhythm, S1 normal heart sound present, S2 normal heart sound present, No gallops present (Cardio), No murmurs present (Cardio), No rub (Cardio) and Peripheral pulses 2+ throughout RATE: regular rate RHYTHM: regular rhythm HEART SOUNDS: S1 normal heart sound present and S2 normal heart sound present PERIPHERAL PULSES: Peripheral pulses 2+ throughout GI: COMMON NORMALS: Normal to inspection, nondistended, normoactive bowel sounds present, Soft to palpation, non-tender, No hepatosplenomegaly present and no masses AUSCULTATION: Yes normoactive bowel sounds PALPATION: Yes Soft to palpation and Yes No hepatosplenomegaly present RECTAL EXAM: deferred Extremity: COMMON NORMALS: no clubbing, cyanosis or edema and no pedal edema Neuro: COMMON NORMALS: patient oriented x3 Discharge Data Data Completed and Pending: Completed Studies During Hospitalization Category Date Time Status CT angio chest PE protcl [id number] Stat Cat Scan 01/06/21 09:[address] head wo con* [id number] Stat Cat Scan 01/07/21 20:37 Completed XR chest 1V keyla ble [id number] Routine Exams 01/09/21 06:00 Completed XR chest 1V keyla ble [id number] Stat Exams 01/06/21 08:31 Completed CV echo complete* [id number] Routine Ultrasound 01/09/21 07:00 Completed Pending at discharge Category Date Time Status Miscellaneous Chaya t Routine Lab 01/09/21 08:25 Received Sputum Culture an d Gram Stain Stat Lab 01/06/21 08:31 Uncollected Vancomycin Trough Timed Lab 01/11/21 21:00 Ordered Labs from last 24 hours 01/11/21 01/11/21 01/11/21 06:47 05:42 05:42 WBC 8.6 RBC 4.50 Hgb 13.1 Hct 38.8 MCV 86.2 MCH 29.1 MCHC 33.8 RDW 12.9 Plt Count 373 MPV 10.1 Neut % (Auto) 56.5 Lymph % (Auto) 36.0 [place] % (Auto) 6.3 Eos % (Auto) 0.2 Baso % (Auto) 0.1 Neut # (Auto) 4.87 Lymph # (Auto) 3.1 [place] # (Auto) 0.5 Eos # (Auto) 0.0 Baso # (Auto) 0.0 Nucleated RBC % (a uto) 0 Nucleated RBCs # 0.0 Sodium 141 Potassium 3.6 Chloride 105 Carbon Dioxide 27 Anion Gap 12.6 BUN 20 Creatinine 0.6 GFR Calculation Not Reportable Glucose 78 POC Glucose 92 Calculated Osmolal ity 293 Calcium 8.6 01/10/21 01/10/21 01/10/21 21:14 15:56 10:35 WBC RBC Hgb Hct MCV MCH MCHC RDW Plt Count MPV Neut % (Auto) Lymph % (Auto) [place] % (Auto) Eos % (Auto) Baso % (Auto) Neut # (Auto) Lymph # (Auto) [place] # (Auto) Eos # (Auto) Baso # (Auto) Nucleated RBC % (a uto) Nucleated RBCs # Sodium Potassium Chloride Carbon Dioxide Anion Gap BUN Creatinine GFR Calculation Glucose POC Glucose 166 H 245 H 134 H Calculated Osmolal ity Calcium Vitals: Last Vital Signs Temp 96.5 F L 01/11/21 07:12 Pulse 71 01/11/21 09:42 Resp 15 01/11/21 09:42 BP 117/69 01/11/21 07:12 Pulse Ox 97 01/11/21 09:42 Discharge Plan Discharge Patient Disposition: Home Condition: Stable Prescriptions: New Plavix 75 mg tablet 75 mg PO DAILY Qty: 30 RF: 0 levofloxacin 500 mg tablet 500 mg PO DAILY 5 Days RF: 0 Lasix 20 mg tablet 20 mg PO DAILY Qty: 7 RF: 0 Klor-Con 20 mEq packet 20 meq PO DAILY 3 Days Qty: 3 RF: 0 Continued metformin 500 mg tablet 500 mg PO BID RF: 0 atorvastatin 40 mg tablet 40 mg PO BEDTIME RF: 0 buspirone 15 mg tablet 15 mg PO DAILY RF: 0 donepezil 10 mg tablet 10 mg PO DAILY RF: 0 albuterol sulfate 90 mcg/actuation HFA aerosol inhaler 2 inh INHALATION Q4H PRN (Reason: shortness of breath or wheezing) Qty: 18 RF: 0 latanoprost 0.005 % Drops 1 drp OPHTHALMIC (EYE) BEDTIME RF: 0 timolol 0.5 % Drops 1 drp OPHTHALMIC (EYE) BID RF: 0 dorzolamide 2 % Drops 1 drp OPHTHALMIC (EYE) BID RF: 0 Changed aspirin 325 mg tablet 75 mg PO DAILY Qty: 0 RF: 0 Held amlodipine 5 mg tablet 5 mg PO DAILY RF: 0 Hold Instructions: Resume on 01/18/21. metoprolol tartrate 50 mg tablet 50 mg PO BID RF: 0 Hold Instructions: Resume on 01/18/21. chlorthalidone 25 mg tablet 25 mg PO DAILY Qty: 90 RF: 3 Hold Instructions: Resume on 01/18/21. Discontinued dexamethasone 6 mg tablet 6 mg PO DAILY Qty: 7 RF: 0 Discharge Orders: Discharge Order (Routine); Ordered 01/11/21 Ordered By: Odell Wolf Other Ambulatory Orders: DME: De (Order) Location: None Selected Ordered By: Odell Wolf Referrals: Lynn Chaudhary FNP [Primary Care Provider] - 1 week (Please call Steve Schilling and schedule an appointment to see Lynn Chaudhary within the next week. ) Discharge Diet: Diabetic and Low Salt Discharge Activity: Increase activity as tolerated Patient Instructions: Furosemide (By mouth), Potassium Chloride (By mouth), Levofloxacin (By mouth), Clopidogrel (By mouth), Ischemic Stroke (GEN), Pneumonia Stoplight, Stroke Stoplight, Pneumonia - Viral Discharge Attestations Time Spent in Discharge Care*: less than 30 min Specific Discharge Activities: educating patient, educating and/or supporting family/caregiver, discussing with case management social worker/social workers/dc planners, documenting/other paperwork and evaluating patient/reviewing data Status at Discharge: Cognitive status at discharge: cognitively intact , Behavioral status at discharge: cooperative , Functional status at discharge: independent ambulation Overall status at discharge: patient is back to baseline Quality Metrics Clinical Quality Measures During this hospital stay, did patient experience: None Coding 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
[2021-01-11] MEDS: enoxaparin 40 mg/0.4 mL Syringe SUBCUT (12:13)
[2021-01-11 12:22] LABS: Glucose Point of Care 140 mg/dL (70-110)
--- NOTE | 2021-01-11 16:13 | PC.NURSE ---
Called Rishi Amaya, , and explained discharge instructions over the phone as well as changes in medications. Also educated him about taking Lasix in the morning to avoid urinating all night. Rishi stated understanding and stated he would call if he had any more questions. IV discontinued from patient's right AC and Patient's belongings sent with patient's loved ones. Patient wheeled out by wheelchair accompanied by security to private vehicle.
== END 2021-01-11 16:00 | disposition home or self-care (01) | DRG 177 ==
LOC: ER 11:02 → MEDSURG 13:20
PROVIDERS: Internal Medicine; Admitting Provider Internal Medicine; Emergency Provider Family Medicine; PCP Nurse Practitioner Family; Visit Provider Internal Medicine
DX: U07.1 COVID-19 (principal); J12.82 Pneumonia due to coronavirus disease 2019; F05 Delirium due to known physiological condition; G45.9 Transient cerebral ischemic attack, unspecified; I25.10 Atherosclerotic heart disease of native coronary artery without angina pectoris; I10 Essential (primary) hypertension; E11.9 Type 2 diabetes mellitus without complications; E78.2 Mixed hyperlipidemia; Z99.81 Dependence on supplemental oxygen; J43.2 Centrilobular emphysema; G56.03 Carpal tunnel syndrome, bilateral upper limbs; I25.2 Old myocardial infarction; E66.9 Obesity, unspecified; Z68.26 Body mass index [BMI] 26.0-26.9, adult; G47.30 Sleep apnea, unspecified; Z87.891 Personal history of nicotine dependence; E87.6 Hypokalemia; Z79.84 Long term (current) use of oral hypoglycemic drugs; Z79.51 Long term (current) use of inhaled steroids
CPT/HCPCS: 36415; 36416; 36600; 51701; 70450; 71045; 71275; 80048; 80051; 80053; 81001; 82330; 82550; 82805; 82962; 83605; 83721; 83735; 84443; 84484; 85025; 85378; 85610; 87040; 87086; 87641; 93005; 93306; 96365; 96372; 96375; 97110; 97116; 97161; 99285; J0456; J0696; J1100; J1650; J1815; J1940; J1956; J3370; J3480; J7030; J7050; J8540; Q9967

== ENCOUNTER → 2021-03-11 08:19 | Outpatient (BNVA) | payer MEDICARE, OTHER, SELFPAY | PROVIDERS: PCP Nurse Practitioner Family; Referring Provider Nurse Practitioner Family; Visit Provider Orthopaedic Surgery | DX: M48.062 Spinal stenosis, lumbar region with neurogenic claudication (principal); M47.896 Other spondylosis, lumbar region | CPT/HCPCS: 72120 ==

== ENCOUNTER 2021-03-19 07:52 | Outpatient (CLI) | payer MEDICARE, OTHER, SELFPAY ==
--- NOTE | 2021-03-19 08:04 | MR_ITS ---
WS: [id number] MRI LUMBAR SPINE NONCONTRAST TECHNIQUE: Sagittal T1, T2 and STIR imaging. Axial T1 and T2 imaging. CLINICAL INFORMATION: SPINAL STENOSIS, LUMBAR REGION COMPARISON: None. FINDINGS: Mild lumbar curve. No acute compression. No high-grade central canal stenosis. Schmorl's node inferio r endplate T11. Mild disc bulging T11-T12 and T12-L1. Small disc herniation T12-L1. No high-grade [place] tral canal stenosis. L1-L2: Mild disc bulging. Mild facet arthropathy. Spinal canal and foramen are patent. L2-L3: Mild disc bulging with slight narrowing of the left subarticular recess. Mild facet arthropath y. Spinal canal and foramen are patent. L3-L4: Mild disc bulging. Impingement on the left subarticular recess and traversing left L4 nerve ro ot. Mild left and no significant right foraminal narrowing. Mild facet arthropathy. Mild central lindsay l stenosis. L4-L5: Small right subarticular disc protrusion impinges the traversing right L5 nerve root in the barone barticular recess. Mild left and no significant right foraminal narrowing. Mild central canal stenosi s. Mild facet arthropathy. L5-S1: Mild disc bulging with endplate ridging. Mild left and no significant right foraminal narrowin g. Moderate facet arthropathy. Right renal cyst measuring 3.3 CM. Partially visualized left inferior pole renal cyst measuring 4.7 C M. Smaller bilateral renal cysts. Visualized pelvic bony structures: Normal. Paravertebral soft tissues: Normal. MR/MR lumbar spine wo con* [id number] IMPRESSION: 1. Mild lumbar curve. No acute compression. No high-grade central canal stenos is. 2. Small left subarticular protrusion L3-4 impinges the traversing left L4 ner ve root. 3. Small right subarticular protrusion L4-5 impinges the traversing right L5 n erve root. 4. Mild left L4-5 and left L5-S1 foraminal narrowing. 5. Small midline disc herniation T12-L1 6. Mild facet arthropathy L3-4 and L4-L5.
== END 2021-03-19 07:53 | disposition home or self-care (01) ==
PROVIDERS: PCP Nurse Practitioner Family; Visit Provider Orthopaedic Surgery
DX: M48.062 Spinal stenosis, lumbar region with neurogenic claudication (principal); M51.26 Other intervertebral disc displacement, lumbar region; M51.25 Other intervertebral disc displacement, thoracolumbar region; M47.816 Spondylosis without myelopathy or radiculopathy, lumbar region
CPT/HCPCS: 72148

== ENCOUNTER → 2021-04-17 07:58 | Outpatient (BNVA) | payer MEDICARE, OTHER, SELFPAY | PROVIDERS: PCP Nurse Practitioner Family; Referring Provider Orthopaedic Surgery; Visit Provider Specialist | DX: M48.062 Spinal stenosis, lumbar region with neurogenic claudication (principal); G62.89 Other specified polyneuropathies; M47.816 Spondylosis without myelopathy or radiculopathy, lumbar region; Z87.891 Personal history of nicotine dependence | CPT/HCPCS: 95885; 95909; 99202 ==

== ENCOUNTER 2021-04-17 15:05 | Outpatient (CLI) | payer MEDICARE, OTHER, SELFPAY ==
[2021-04-17 15:42] LABS: D Dimer <= 0.27 ug/mIFEU (0-0.59)
== END 2021-04-17 15:06 | disposition home or self-care (01) ==
PROVIDERS: PCP Nurse Practitioner Family; Visit Provider Nurse Practitioner Family
DX: R07.89 Other chest pain (principal)
CPT/HCPCS: 85378

== ENCOUNTER → 2022-06-08 11:04 | Outpatient (BNVA) | payer MEDICARE, OTHER, SELFPAY | PROVIDERS: PCP Electrodiagnostic Medicine; Visit Provider Internal Medicine Cardiovascular Disease | DX: I25.10 Atherosclerotic heart disease of native coronary artery without angina pectoris (principal); E11.65 Type 2 diabetes mellitus with hyperglycemia; I10 Essential (primary) hypertension; G47.33 Obstructive sleep apnea (adult) (pediatric); E78.2 Mixed hyperlipidemia; Z87.891 Personal history of nicotine dependence; Z79.84 Long term (current) use of oral hypoglycemic drugs | CPT/HCPCS: 99214 ==

== ENCOUNTER → 2022-12-14 13:51 | Outpatient (BNVA) | payer MEDICARE, OTHER, SELFPAY | PROVIDERS: PCP Electrodiagnostic Medicine; Visit Provider Nurse Practitioner Family | DX: I25.10 Atherosclerotic heart disease of native coronary artery without angina pectoris (principal); I10 Essential (primary) hypertension; Z87.891 Personal history of nicotine dependence | CPT/HCPCS: 99214 ==

== ENCOUNTER 2023-01-27 07:11 | Outpatient (CLI) | payer MEDICARE, OTHER, SELFPAY ==
[2023-01-27 07:40] VITALS: PULSE 57; RESP 18; O2SAT 100
[2023-01-27] MEDS: albuterol 2.5 mg/3 mL Neb INHALATION (07:40)
[2023-01-27 07:45] VITALS: PULSE 60
== END 2023-01-27 07:12 | disposition home or self-care (01) ==
LOC: RT 07:15
PROVIDERS: PCP Electrodiagnostic Medicine; Visit Provider Electrodiagnostic Medicine
DX: J44.9 Chronic obstructive pulmonary disease, unspecified (principal)
CPT/HCPCS: 94060; 94726; 94729; J7613

== ENCOUNTER → 2023-06-28 11:24 | Outpatient (BNVA) | payer MEDICARE, OTHER, SELFPAY | PROVIDERS: PCP Electrodiagnostic Medicine; Visit Provider Internal Medicine Cardiovascular Disease | DX: I25.10 Atherosclerotic heart disease of native coronary artery without angina pectoris (principal); G47.33 Obstructive sleep apnea (adult) (pediatric); E11.65 Type 2 diabetes mellitus with hyperglycemia; I10 Essential (primary) hypertension; E78.2 Mixed hyperlipidemia; Z87.891 Personal history of nicotine dependence | CPT/HCPCS: 99214 ==

== ENCOUNTER → 2023-08-16 11:27 | Outpatient (BNVA) | payer MEDICARE, OTHER, SELFPAY | PROVIDERS: PCP Electrodiagnostic Medicine; Visit Provider Internal Medicine Pulmonary Disease | DX: J43.9 Emphysema, unspecified (principal); M25.641 Stiffness of right hand, not elsewhere classified; M25.642 Stiffness of left hand, not elsewhere classified; J84.9 Interstitial pulmonary disease, unspecified; F17.210 Nicotine dependence, cigarettes, uncomplicated; Z86.16 Personal history of COVID-19; I25.10 Atherosclerotic heart disease of native coronary artery without angina pectoris; J31.0 Chronic rhinitis; Z95.1 Presence of aortocoronary bypass graft | CPT/HCPCS: 36415; 85651; 86140; 86200; 86225; 86235; 86431; 99214 ==

== ENCOUNTER 2023-11-03 13:35 | Outpatient (CLI) | payer MEDICARE, OTHER, SELFPAY ==
--- NOTE | 2023-11-03 13:45 | XR_ITS ---
WS: [id number] SCREENING DEXA SCAN [facility] CLINICAL INFORMATION: POSTMENOPAUSAL COMPARISON: 2018 FINDINGS: The L1-L4 bone mineral density measures 1.220 g/cm2. This corresponds to a T score score of 0.3 and Z score of 1.9. Left femoral neck bone mineral density measures 1.039 g/cm2. This corresponds to a T score of 0.2 and Z score of 2.1. Right femoral neck bone mineral density measures 1.083 g/cm2. This corresponds to a T score 0.6of and Z score of 2.5. Mean femoral neck bone mineral density measures 1.061 g/cm2. This corresponds to a T score of 0.4 and Z score of 2.3. IMPRESSION: Normal bone mineralization. Patient's FRAX calculated 10 year probability for major osteoporotic fracture is 9.9% and osteoporoti c hip fracture is 1.7%. Bone mineral density lumbar spine increased 5.7% bone mineral density femoral necks decreased -0.9%
== END 2023-11-03 13:36 | disposition home or self-care (01) ==
LOC: RAD 13:36
PROVIDERS: PCP Electrodiagnostic Medicine; Visit Provider Electrodiagnostic Medicine
DX: Z13.820 Encounter for screening for osteoporosis (principal); Z78.0 Asymptomatic menopausal state
CPT/HCPCS: 77080

== ENCOUNTER → 2024-01-06 09:45 | Outpatient (BNVA) | payer MEDICARE, OTHER, SELFPAY | PROVIDERS: PCP Electrodiagnostic Medicine; Visit Provider Nurse Practitioner Family | DX: I25.10 Atherosclerotic heart disease of native coronary artery without angina pectoris (principal); R09.89 Other specified symptoms and signs involving the circulatory and respiratory systems; I10 Essential (primary) hypertension; Z87.891 Personal history of nicotine dependence | CPT/HCPCS: 99214 ==

== ENCOUNTER 2024-01-12 07:48 | Outpatient (CLI) | payer MEDICARE, OTHER, SELFPAY ==
--- NOTE | 2024-01-12 08:15 | USCV_ITS ---
Gwyn Amayanna Age: 84 Gender: F : 1940 Exam Date: 01/12/2024 08:00 Ordering Phys: Juanita Arreola Technologist: CHRISTINE Exam Location: [facility] [place] [facility] Indication: RIGHT BRUIT Risk Factors: Previous Vascular Surgery: Right Brachial BP: / Left Brachial BP: / Right Left Velocity (cm/s) Spectral Plaque Velocity (cm/s) Spectral Plaque Syst/Diast Broadening Syst/Diast Broadening 89.30/ 18.10 Prox CCA 88.10 / 20.60 68.00/ 13.30 Mid CCA 93.40 / 21.60 69.10/ 15.50 Distal CCA 91.30 / 23.70 67.40/ 16.20 Prox ICA 71.70 / 21.60 87.40/ 23.50 Mid ICA 89.10 / 25.90 83.80/ 23.50 Distal ICA 100.00/ 23.70 96.60 ECA 102.00 Antegrade Vertebral Antegrade 49.40/ 9.90 cm/s 48.20/ 10.60 cm/s Bi Subclavian Bi 103.7 177.5 0 0 CONCLUSIONS Right ICA stenosis <50%. Mild atheromatous plaque right carotid bulb/ICA. Left ICA stenosis <50%. Mild atheromatous plaque left carotid bulb/ICA. Normal antegrade Doppler flow noted in the right vertebral artery. Normal antegrade Doppler flow noted in the left vertebral artery. Evan Traylor MD (Electronically Signed) Final Date: 12 January 2024 13:03 S
== END 2024-01-12 07:49 | disposition home or self-care (01) ==
LOC: RAD 07:49
PROVIDERS: PCP Electrodiagnostic Medicine; Visit Provider Nurse Practitioner Family
DX: I65.23 Occlusion and stenosis of bilateral carotid arteries (principal)
CPT/HCPCS: 93880

== ENCOUNTER → 2024-02-14 11:03 | Outpatient (BNVA) | payer MEDICARE, OTHER, SELFPAY | PROVIDERS: PCP Electrodiagnostic Medicine; Visit Provider Obstetrics & Gynecology | DX: N95.0 Postmenopausal bleeding (principal); R93.89 Abnormal findings on diagnostic imaging of other specified body structures; D25.9 Leiomyoma of uterus, unspecified | CPT/HCPCS: 76830 ==

== ENCOUNTER → 2024-02-18 16:59 | Outpatient (BNVA) | payer MEDICARE, OTHER, SELFPAY | PROVIDERS: PCP Electrodiagnostic Medicine; Visit Provider Obstetrics & Gynecology | DX: N95.0 Postmenopausal bleeding (principal) | CPT/HCPCS: 88305 ==

== ENCOUNTER 2024-04-27 13:46 | Observation (INO) | payer MEDICARE, OTHER, SELFPAY ==
[2024-04-27] VITALS (7 sets, daily range): BP systolic 130–164; BP diastolic 79–101; PULSE 81–99; RESP 16–17; TEMP 36.5–36.6; O2SAT 91–97
--- NOTE | 2024-04-27 13:49 | XRR_ITS ---
PROCEDURE INFORMATION: Exam: XR Chest Exam date and time: 04/27/2024 2:00 PM Age: 84 years old Clinical indication: Dyspnea; Additional info: SOB TECHNIQUE: Imaging protocol: Radiologic exam of the chest. Views: 1 view. COMPARISON: CR XR chest 2V* [id number] 01/06/2023 10:49 AM FINDINGS: Lungs: There is extensive consolidation, volume loss and a small pleural effusion involving the left lung base. The right lung is clear. Pleural spaces: See Lungs finding. Heart/Mediastinum: Moderate cardiomegaly is noted. Bones/joints: Unremarkable. XR/XR chest 1V portable [id number] IMPRESSION: Cardiomegaly with left basilar pneumonia and small pleural effusion
--- NOTE | 2024-04-27 13:49 | ECG_ITS ---
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 Measurements Intervals [place] Rate: 92 P: 0 PA: 0 QRS: 47 QRSD: 84 T: 0 QT: 354 QTc: 438 Interpretive Statements ATRIAL FIBRILLATION NONSPECIFIC ST & T-WAVE ABNORMALITY Compared to ECG 01/06/2021 10:45:49 Sinus rhythm no longer present Possible ischemia no longer present T-wave abnormality still present Electronically Signed On 04-27-2024 16:14:35 CDT by Wilmer Celestin M.D. [id number] f
[2024-04-27 14:35] LABS: Basophils % 0.1 %; Eosinophils # 0.1 10^3/uL (0.0-0.8); Eosinophils % 1.1 %; Hematocrit 36.4 % (36-47); Lymphocytes # 2.8 10^3/uL (0.8-4.8); Lymphocytes % 38.5 %; Mean Corpuscular Hemoglobin 28.9 pg (27-33); Mean Corpuscular Volume 93.1 fl (85-98); Mean Platelet Volume 10.1 fL (7.4-10.4); Monocytes # 0.3 10^3/uL (0.2-0.9); Neutrophils # 4.05 10^3/uL (1.8-7.7); Neutrophils % 56.2 %; Nucleated Red Blood Cells % 0 %; Platelet Count 318 10^3/cmm (157-399); Red Blood Count 3.91 10^6/uL (3.85-5.65); Red Cell Distribution Width 14.7 % (12.1-15.1); White Blood Count 7.22 10^3/uL (3.29-11.43)
[2024-04-27 15:09] LABS: Alanine Aminotransferase 8 U/L (0-33); Albumin Level 3.6 g/dL (3.5-5.2); Alkaline Phosphatase 96 U/L (35-105); Anion Gap 17.1 (5-19); Aspartate Amino Transferase 14 U/L (0-32); Blood Urea Nitrogen 11 mg/dL (8-23); Calcium 8.7 mg/dL (8.5-10.5); Carbon Dioxide 25 mmol/L (22-29); Chloride 103 mmol/L (98-107); Creatinine Clr Calc Pharmacy 56.7587; Globulin 2.7 g/dL (1.3-4.6); Glucose 158 mg/dL (65-115); NT Pro B Type Natriuretic Pept 5220 pg/mL (0-450); Osmolality Calculated 295 mOsm/kg (285-295); Potassium 4.1 mmol/L (3.5-5.1); Sodium 141 mmol/L (136-145); Total Bilirubin 1.1 mg/dL (0.15-1.2); Total Protein 6.3 g/dL (6.6-8.7)
--- NOTE | 2024-04-27 16:58 | CTR_ITS ---
PROCEDURE INFORMATION: Exam: CTA Chest With Contrast Exam date and time: 04/27/2024 5:20 PM Age: 84 years old Clinical indication: Dyspnea; Prior surgery; Surgery date: 6+ months; Surgery type: H/o tubal ligation. Previous back surgery. H/o heart surgery. Recently had a aco coordinator surgery. ; Additional info: Dyspnea; S/s of chf, recent surgery TECHNIQUE: Imaging protocol: Computed tomographic angiography of the chest with contrast. Exam focused on the arteries. 3D rendering (Not supervised by radiologist): MIP and/or 3D reconstructed images were created by the technologist. Radiation optimization: All CT scans at this facility use at least one of these dose optimization techniques: automated exposure control; mA and/or kV adjustment per patient size (includes targeted exams where dose is matched to clinical indication); or iterative reconstruction. Contrast material: OMNI 350; Contrast volume: 75 ml; Contrast route: INTRAVENOUS (IV); COMPARISON: CT angio chest PE protcl [id number] 01/06/2021 10:08 AM RADIATION DOSE METRICS: Total DLP (mGy-cm): 472 FINDINGS: Pulmonary arteries: Normal. No pulmonary emboli. Aorta: Unremarkable. No aortic aneurysm. No aortic dissection. Lungs: There is diffuse centrilobular emphysematous change involving the upper lobes bilaterally. Hazy infiltrate involves both lungs and there is bibasilar atelectasis. Pleural spaces: Large bilateral pleural effusions are noted. Heart: Prominent cardiomegaly is noted. Lymph nodes: Unremarkable. No enlarged lymph nodes. Bones/joints: Unremarkable. No acute fracture. Soft tissues: Unremarkable. CT/CT angio chest PE protcl [id number] IMPRESSION: CHF with large pleural effusions
--- NOTE | 2024-04-27 16:58 | ED_ITS ---
HPI - SOB/Dyspnea 2 General: Chief Complaint: Shortness of Breath/Dyspnea Stated Complaint: sob, sent by luis Time Seen by Provider: 04/27/24 16:42 Source: patient Mode of arrival: wheelchair Limitations: no limitations History of Present Illness: HPI Narrative: Patient is a 84-year-old female hypertension, CAD (s/p CABG x 1), FARHEEN on CPAP, and recent hysterectomy back in February for uterine cancer with complaints of dyspnea. Patient states dyspnea has been present over the past several days. She states she mainly notices this with ambulation. She was reportedly sent here by her PCP Dr. Stover who noted her to be at 87% with walking. She states she has noticed some swelling to her lower extremities. She is not having any chest pain. She has not noticed any significant orthopnea. She arrives with stable vital signs. MD elicited complaint: shortness of breath Onset (ago): day(s) Timing: constant Severity: moderate Exacerbating factors: lying flat and exertion Relieving factors: nothing Associated symptoms: Reports orthopnea; Deny abdominal pain, chest pain, dizziness, extremity pain, fever(s), hemoptysis, lightheadedness, nausea, palpitations, syncope or vomiting Treatment prior to arrival: none Related Data: Home oxygen amount: none Review of Systems 2 Const: Denies: fever(s), chills, body aches, fatigue or malaise Eyes: Denies: change in vision or blurry vision Card: Reports: swelling of feet/ankles and orthopnea; Denies: chest pain, palpitations, irregular heart rhythm, edema, lightheadedness, syncope, pre-syncope, dyspnea on exertion, leg pain with exertion or acrocyanosis Resp: Reports: dyspnea; Denies: productive cough, non-productive cough, wheezing, pain on inspiration, change in phlegm color or hemoptysis GI: Denies: abdominal pain, nausea, vomiting, heartburn or diarrhea : Denies: flank pain or dysuria Musc: Denies: neck pain, back pain, extremity pain, extremity swelling or joint pain Skin/Breast: Denies: rash Neuro: Denies: headache(s), numbness in extremities, weakness in extremities, sensory changes or dizziness PFSH ED 2 PFSH: Medical History TIA (transient ischemic attack) Acute encephalopathy Diabetes Hypokalemia COPD (chronic obstructive pulmonary disease) Pneumonia COVID-19 Diabetes Hypertension Chronic anxiety Myocardial infarction Arteriosclerosis of coronary artery Obese Left ventricular hypertrophy Palpitations Carpal tunnel syndrome on both sides Mixed hyperlipidemia Bradycardia Hypotension Sleep apnea Leg swelling Surgical History H/O tubal ligation Previous back surgery H/O heart surgery Family History Other No family history of disorders Social History Smoking and tobacco/nicotine status: former use of tobacco/nicotine Quit status (tobacco/nicotine): has quit using Year quit tobacco: 1987 Former quit date comment: Hx of 1.5 PPD x 30 Years Second hand smoke exposure: No Alcohol intake: never Substance/Drug Use: never Lives independently: Yes Household members: spouse Marital status: Current occupational status: retired Do you think of yourself as: Straight/Heterosexual Current gender identity: Female Physical Exam 2 Const: COMMON NORMALS: no acute distress, patient oriented x3, no limitations, healthy appearing, alert and well nourished GENERAL APPEARANCE: cooperative and well kempt ORIENTATION/CONSCIOUSNESS: Yes awake, Yes oriented to person, Yes oriented to place and Yes oriented to time Chest: COMMONS NORMALS: normal inspection of the chest and normal palpation of entire chest wall Resp: COMMON NORMALS: normal respiratory effort and clear to auscultation bilaterally AUSCULTATION: clear to auscultation bilaterally Cardio: COMMON NORMALS: regular rate RATE: regular rate RHYTHM: abnormal rhythm irregularly irregular GI: COMMON NORMALS: Normal to inspection, nondistended, normoactive bowel sounds present, Soft to palpation and non-tender PALPATION: Yes Soft to palpation Back/Pelvis: COMMON NORMALS: thoracic and lumbar spine normal to inspection Extremity: COMMON NORMALS: normal to inspection, capillary refill normal, no joint enlargement and no calf tenderness NARRATIVE EXTREMITY EXAM: mild bilateral non-pitting edema; no calf pain GENERAL: Yes normal exam except as noted Neuro: COMMON NORMALS: patient oriented x3, moves all extremities, no focal motor deficits and no sensory deficits noted SENSORIUM/ORIENTATION: Yes alert, Yes oriented to person, Yes oriented to place and Yes oriented to time Psych: COMMON NORMALS: mental status grossly normal, Normal thought process present, cooperative, normal affect, speech normal and activity/motor behavior normal APPEARANCE: Yes well kempt ACTIVITY/MOTOR BEHAVIOR: Yes appropriate eye contact and No psychomotor agitation SPEECH: Yes normal speech THOUGHT PROCESS: Normal thought process present MEMORY/COGNITION: Yes cognition grossly intact INSIGHT: Good insight present (Psych) JUDGEMENT: Good judgement present (Psych) Skin: COMMON NORMALS: no rashes or lesions noted GENERAL SKIN EXAM: no rashes or lesions noted Course 2 Consultations: Consultation #1: Dr. Benitez-accepts hospitalization Vital Signs: Vital signs: Vital Signs Temperature 97.7 F 04/27/24 13:56 Pulse Rate 92 04/27/24 17:36 Respiratory Rate 16 04/27/24 13:56 Blood Pressure 164/94 04/27/24 17:36 Pulse Oximetry 91 04/27/24 17:36 Oxygen Delivery Me thod Room Air 04/27/24 17:36 MDM - SOB/Dyspnea Medical Decision Making Patient is a very nice 84-year-old female here with complaints of dyspnea. Patient was found to sat 85-87% with minimal ambulation. She was found to be in acute congestive heart failure along with new onset atrial fibrillation. She does not have a pulmonary emboli. She was given 60 mg of Lasix and will be admitted to the hospital service. Medical Records I reviewed the patient's medical records. Lab Data I reviewed the patient's lab results. 04/27/24 14:14 04/27/24 14:14 Labs/Radiology: Radiology Impressions Chest X-Ray 04/27/24 13:49 IMPRESSION: Cardiomegaly with left basilar pneumonia and small pleural effusion Chest CTA 04/27/24 16:58 IMPRESSION: CHF with large pleural effusions Laboratory Results WBC 7.22 10^3/uL (3.29-11.43) 04/27/24 14:14 RBC 3.91 10^6/uL (3.85-5.65) 04/27/24 14:14 Hgb 11.30 g/dL (11.27-16.99) 04/27/24 14:14 Hct 36.4 % (36-47) 04/27/24 14:14 MCV 93.1 fl (85-98) 04/27/24 14:14 MCH 28.9 pg (27-33) 04/27/24 14:14 MCHC 31.0 g/dL (30-55) 04/27/24 14:14 RDW 14.7 % (12.1-15.1) 04/27/24 14:14 Plt Count 318 10^3/cmm (157-399) 04/27/24 14:14 MPV 10.1 fL (7.4-10.4) 04/27/24 14:14 Neut % (Auto) 56.2 % 04/27/24 14:14 Lymph % (Auto) 38.5 % 04/27/24 14:14 [place] % (Auto) 4.0 % 04/27/24 14:14 Eos % (Auto) 1.1 % 04/27/24 14:14 Baso % (Auto) 0.1 % 04/27/24 14:14 Neut # (Auto) 4.05 10^3/uL (1.8-7.7) 04/27/24 14:14 Lymph # (Auto) 2.8 10^3/uL (0.8-4.8) 04/27/24 14:14 [place] # (Auto) 0.3 10^3/uL (0.2-0.9) 04/27/24 14:14 Eos # (Auto) 0.1 10^3/uL (0.0-0.8) 04/27/24 14:14 Baso # (Auto) 0.0 10^3/uL (0.0-0.1) 04/27/24 14:14 Nucleated RBC % (auto) 0 % 04/27/24 14:14 Nucleated RBCs # 0.0 /100WBC 04/27/24 14:14 Sodium 141 mmol/L (136-145) 04/27/24 14:14 Potassium 4.1 mmol/L (3.5-5.1) 04/27/24 14:14 Chloride 103 mmol/L (98-107) 04/27/24 14:14 Carbon Dioxide 25 mmol/L (22-29) 04/27/24 14:14 Anion Gap 17.1 (5-19) 04/27/24 14:14 BUN 11 mg/dL (8-23) 04/27/24 14:14 Creatinine 0.8 mg/dL (0.5-0.9) 04/27/24 14:14 GFR Calculation Not Reportable 04/27/24 14:14 Glucose 158 mg/dL (65-115) H 04/27/24 14:14 Calculated Osmolality 295 mOsm/kg (285-295) 04/27/24 14:14 Calcium 8.7 mg/dL (8.5-10.5) 04/27/24 14:14 Total Bilirubin 1.1 mg/dL (0.15-1.2) 04/27/24 14:14 AST 14 U/L (0-32) 04/27/24 14:14 ALT 8 U/L (0-33) 04/27/24 14:14 Alkaline Phosphatase 96 U/L (35-105) 04/27/24 14:14 Troponin T Baseline 8 ng/L (0-10) 04/27/24 14:14 Troponin T 120 Minute 10.07 ng/L (0-10) H 04/27/24 17:11 Delta Troponin T 2.07 ABS# (0-10) 04/27/24 17:11 NT-Pro-B Natriuret Pep 5220 pg/mL (0-450) H 04/27/24 14:14 Total Protein 6.3 g/dL (6.6-8.7) L 04/27/24 14:14 Albumin 3.6 g/dL (3.5-5.2) 04/27/24 14:14 Globulin 2.7 g/dL (1.3-4.6) 04/27/24 14:14 All radiology interpretation(s) finalized by discharge Discharge Plan Discharge Patient Disposition: Admitted As Inpatient Clinical Impression: New onset atrial fibrillation, New onset of congestive heart failure, Acute hypoxic respiratory failure Condition: Stable Prescriptions: No Action metoprolol tartrate 50 mg tablet 50 mg PO BID Hold Instructions: Resume on 01/18/21. donepezil 10 mg tablet 10 mg PO DAILY Ultra CoQ10 75 mg capsule 75 mg PO DAILY aspirin [Adult Aspirin Regimen] 81 mg tablet,delayed release (DR/EC) 81 mg PO DAILY esomeprazole magnesium 20 mg capsule,delayed release(DR/EC) 20 mg PO DAILY cholecalciferol (vitamin D3) 10 mcg (400 unit) capsule 10 mcg PO DAILY mecobalamin (vitamin B12) 500 mcg tablet,chewable PO Anoro Ellipta 62.5-25 mcg/actuation blister with device 1 inh inhalation DAILY Qty: 60 3RF atorvastatin 40 mg tablet See Rx Instructions .ROUTE .COMPLEX Qty: 90 3RF Dose Instruction: TAKE 1 TABLET BY MOUTH EVERYDAY AT BEDTIME Rx Instructions: TAKE 1 TABLET BY MOUTH EVERYDAY AT BEDTIME albuterol sulfate 90 mcg/actuation HFA aerosol inhaler 2 inh inhalation QID PRN (Reason: shortness of breath or wheezing) Qty: 8.5 3RF fluticasone propionate [Flonase Allergy Relief] 50 mcg/actuation spray,suspension 1 spray intranasal Q12H Qty: 16 8RF Rx Instructions: administer into each nostril chlorthalidone 25 mg tablet See Rx Instructions .ROUTE .COMPLEX Qty: 90 3RF Hold Instructions: Resume on 01/18/21. Dose Instruction: TAKE 1 TABLET BY MOUTH EVERY DAY Rx Instructions: TAKE 1 TABLET BY MOUTH EVERY DAY latanoprost 0.005 % Drops 1 drp OPHTHALMIC (EYE) BEDTIME Rx Instructions: (both eyes) timolol 0.5 % Drops 1 drp OPHTHALMIC (EYE) BID Rx Instructions: (left) dorzolamide 2 % Drops 1 drp OPHTHALMIC (EYE) BID Rx Instructions: (left eye) Referrals: Maurice Stover DO [Primary Care Provider] - Coding Level of Care Code ED Showcase Trimmer for Jez Albright
--- NOTE | 2024-04-27 17:06 | PC.NURSE ---
Ambulation Trial: pt ambulated on room air, oxygenation saturation decreased to 87% periodically, but otherwise maintained 90-92%. pt states she didn't feel any increased SOB compared to laying down.
[2024-04-27] MEDS: iohexol 350 mg/mL 500 mL Btl (per mL) IV (17:31)
[2024-04-27 17:35] LABS: Troponin(5th) Baseline 8 ng/L (0-10)
[2024-04-27] MEDS: FUROsemide 10 mg/mL SDV 4mL 40 MG IVP (17:35)
[2024-04-27 17:36] LABS: Troponin 5 2HR 10.07 ng/L (0-10); Troponin 5 2HR Delta 2.07 ABS# (0-10)
--- NOTE | 2024-04-27 17:47 | PC.NURSE ---
pt used commode and oxygenation saturation decreased to 85%-87%, pt increased to 89% with deep breathing, this nurse applied 2L NC, pt currently 92% on oxygen.
[2024-04-27] MEDS: FUROsemide 10 mg/mL SDV 2mL 20 MG IVP (18:21)
[2024-04-27 18:25] LABS: Add Urine Microscopic? NO; Charge for UA Resulting for Rev
--- NOTE | 2024-04-27 18:27 | P.HP_ITS ---
Providers/Chief Complaint 2 Admitting Physician: Asya Benitez MD Primary Care Provider: Maurice Stover DO Chief Complaint: sob, sent by luis History of Present Illness Nadia Amaya is a 84 year old female with history of grade 1 diastolic function as per echo 2020 presented to hospital with chief complaint orthopnea PND and shortness of breath, patient is stating that she recently had a vaginal hysterectomy and since then she has been feeling some shortness of breath, she drinks 3 bottles of 16 ounces every day, does not watch her sodium intake, no recent chest pain fever diarrhea or vomiting. She presented for chief complaint of worsening of shortness of breath associated orthopnea and PND, requiring 2 L, hemodynamically stable. In the ER she has been diagnosed CHF exacerbation, CT chest consistent with bilateral pleural effusion right greater than left Review of Systems 2 Const: Denies: fever(s) Eyes: Denies: change in vision ENMT: Denies: throat pain Card: Denies: chest pain Resp: Reports: dyspnea GI: Denies: abdominal pain : Denies: flank pain Musc: Denies: neck pain Skin/Breast: Denies: rash Neuro: Denies: headache(s) Medications/Allergies Home Medications Medication Instructions Recorded Confirmed Last Taken Type metoprolol tartrate 50 mg tablet 50 mg PO BID 11/24/19 03/09/24 01/05/21 History donepezil 10 mg tablet 10 mg PO DAILY 12/10/20 03/09/24 01/05/21 History dorzolamide 2 % eye drops 1 drp ophthalmic (eye) BID 01/06/21 03/09/24 Unknown History latanoprost 0.005 % eye drops 1 drp ophthalmic (eye) BEDTIME 01/06/21 03/09/24 Unknown History timolol 0.5 % eye drops 1 drp ophthalmic (eye) BID 01/06/21 03/09/24 Unknown History coenzyme Q10 75 mg capsule (Ultra 75 mg PO DAILY 05/16/21 03/09/24 Unknown History CoQ10) atorvastatin 40 mg tablet See Rx Instructions .Route 07/07/23 03/09/24 Unknown Rx .COMPLEX #90 tabs albuterol sulfate 90 mcg/actuation 2 inh inhalation QID PRN shortness 07/15/23 03/09/24 Unknown Rx aerosol inhaler of breath or wheezing #8.5 grams aspirin 81 mg tablet,delayed 81 mg PO DAILY 08/16/23 03/09/24 Unknown History release (Adult Aspirin Regimen) cholecalciferol (vitamin D3) 10 10 mcg PO DAILY 08/16/23 03/09/24 Unknown History mcg (400 unit) capsule esomeprazole magnesium 20 mg 20 mg PO DAILY 08/16/23 03/09/24 Unknown History capsule,delayed release mecobalamin (vitamin B12) 500 mcg mcg PO 08/16/23 03/09/24 Unknown History chewable tablet umeclidinium 62.5 mcg-vilanterol 1 inh inhalation DAILY #60 ea 08/16/23 03/09/24 Unknown Rx 25 mcg/actuation powdr for inhalation (Anoro Ellipta) fluticasone propionate 50 1 spray intranasal Q12H #16 grams 12/10/23 03/09/24 Unknown Rx mcg/actuation nasal spray,suspension (Flonase Allergy Relief) chlorthalidone 25 mg tablet See Rx Instructions .Route 03/22/24 Unknown Rx .COMPLEX #90 tabs Allergies Allergy/AdvReac Type Severity Reaction Status Date / Time codeine Allergy GI upset Verified 02/18/24 14:15 morphine Allergy rash Verified 02/18/24 14:15 sulfabenzamide Allergy unknown Verified 02/18/24 14:15 tetanus toxoid, adsorbed Allergy extreme Verified 02/18/24 14:15 fatigue tetracycline Allergy made her Verified 02/18/24 14:15 tingle losartan AdvReac Intermediate chest Verified 02/18/24 14:15 pain/ weakness/ uneasy feeling PFSH Acute 2 PFSH: Medical History TIA (transient ischemic attack) Acute encephalopathy Diabetes Hypokalemia COPD (chronic obstructive pulmonary disease) Pneumonia COVID-19 Diabetes Hypertension Chronic anxiety Myocardial infarction Arteriosclerosis of coronary artery Obese Left ventricular hypertrophy Palpitations Carpal tunnel syndrome on both sides Mixed hyperlipidemia Bradycardia Hypotension Sleep apnea Leg swelling Surgical History H/O tubal ligation Previous back surgery H/O heart surgery Family History Other No family history of disorders Social History Smoking and tobacco/nicotine status: former use of tobacco/nicotine Quit status (tobacco/nicotine): has quit using Year quit tobacco: 1987 Former quit date comment: Hx of 1.5 PPD x 30 Years Second hand smoke exposure: No Alcohol intake: never Substance/Drug Use: never Lives independently: Yes Household members: spouse Marital status: Current occupational status: retired Do you think of yourself as: Straight/Heterosexual Current gender identity: Female Vitals/I&O/Wt Last Vital Signs Temp 97.7 F 04/27/24 13:56 Pulse 92 04/27/24 17:36 Resp 16 04/27/24 13:56 BP 164/94 04/27/24 17:36 Pulse Ox 91 04/27/24 17:36 O2 Del Method Room Air 04/27/24 17:36 Weight last 48 hrs Weight 80.286 kg Physical Exam 2 Narrative: Mild sinus CHF Currently on 2 L S1, S2 Nonfocal neuroexam Pleasant cough Lower extremity no significant swelling Pleasant cooperative Sitting on the bedside commode is at the bedside Data 04/27/24 14:14 04/27/24 14:14 A&P Assessment and plan (1) New onset of congestive heart failure: (2) Hypertension: Qualifiers: Hypertension type: essential hypertension Qualified Code(s): I10 - Essential (primary) hypertension (3) New onset atrial fibrillation: (4) Endometrial/uterine adenocarcinoma: (5) Obstructive sleep apnea (adult) (pediatric): Plan New onset CHF Previous echo showed good diastolic function Will repeat echo Start IV diuresis No active chest pain This likely related to sleep apnea Obstructive sleep apnea CPAP at nighttime Acute hypoxia related to bilateral pleural effusion CHF related Will request thoracentesis Will need home oxygen evaluation History of hypertension: Continue antihypertensive regimen Recently had vaginal hysterectomy, New onset A-fib? Will repeat EKG please put on telemetry Maico Vascor 4 She will need anticoagulating agent once A-fib is confirmed currently she is rate controlled sinus rhythm Full code Cardiac diet Anticipating discharge within 48 hours Attestations 2 Medical Necessity Statement*: Anticipating discharge within 48 hours Diagnoses New onset of congestive heart failure I50.9 Essential hypertension I10 Hypertension type: essential hypertension New onset atrial fibrillation I48.91 Endometrial/uterine adenocarcinoma C54.1 Obstructive sleep apnea (adult) (pediatric) G47.33
[2024-04-27 18:32] LABS: Bilirubin Urine Neg (Negative); Blood Urine Neg (Negative); Glucose Urine UA Norm (Normal); Ketones Urine Negative (Negative); Leukocyte Esterase Urine Negative (Negative); Nitrate Urine Negative (Negative); Protein Urine Neg (Negative); Urine Appearance Clear (CLEAR); Urine Color Yellow (Yellow); Urobilinogen Urine Norm (Negative); pH Urine 7 (5-7)
--- NOTE | 2024-04-27 18:49 | PC.NURSE ---
Assumed care from Carito TILLMAN.
[2024-04-27 19:04] LABS: D Dimer 1.62 ug/mLFEU (0-0.59)
--- NOTE | 2024-04-27 19:08 | ECG_ITS ---
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 Measurements Intervals [place] Rate: 92 P: -4 AR: 134 QRS: -48 QRSD: 170 T: 80 QT: 411 QTc: 510 Interpretive Statements SINUS RHYTHM RIGHT BUNDLE BRANCH BLOCK [120+ ms QRS DURATION, UPRIGHT V1, 40+ ms S IN I/aVL/V4/V5/V6] LEFT ANTERIOR FASCICULAR BLOCK [QRS AXIS <= -45, QR IN I, RS IN II] LEFT VENTRICULAR HYPERTROPHY AND ST-T CHANGE [VOLTAGE CRITERIA PLUS ST/T ABNORMALITY] Compared to ECG 04/27/2024 13:49:48 Right bundle-branch block now present Left anterior fascicular block now present ST (T wave) deviation now present Atrial fibrillation no longer present T-wave abnormality no longer present Electronically Signed On 04-28-2024 0:41:26 CDT by Wilmer Celestin M.D. [id number] f
--- NOTE | 2024-04-27 19:42 | PC.NURSE ---
Report was called to Tiffanie TILLMAN in [facility]. All questions and concerns were addressed at time of report.
--- NOTE | 2024-04-27 20:04 | USCV_ITS ---
Nadia Amaya Age: 84 Gender: F : 1940 Exam Date: 04/27/2024 23:23 Ordering Phys: Roberto Carlos Painting MD Technologist: CAROLE Exam Location: [facility] [place] Indication: History of CAD s/p CABG, FARHEEN on CPAP. BP: 147 / 101 HR: 93 Rhythm: Atrial fibrillation Technical Quality: Suboptimal MEASUREMENTS (Male / Female) Normal Values 2D ECHO LV Diastolic Diameter PLAX 3.5 cm 4.2 - 5.9 / 3.9 - 5.3 cm IVS Diastolic Thickness 1.6 cm 0.6 - 1.0 / 0.6 - 0.9 cm IVS Systolic Thickness 1.7 cm LVPW Diastolic Thickness 1.2 cm 0.6 - 1.0 / 0.6 - 0.9 cm LVPW Systolic Thickness 1.7 cm LVOT Diameter 1.8 cm LV Ejection Fraction 2D Teich 57.4 % LV Ejection Fraction MOD 2C 59.5 % LV Ejection Fraction 2C AL 62.8 % LA Diameter 4.8 cm LA Sys Volume AL 107.0 cm cubed LA Sys Volume Index AL 55.1 cm cubed/m squared Aorta at Sinotubular Diameter 2.8 cm IVC Diameter 2.2 cm M-MODE LA Ao Ratio MM 1.7 AV Cusp Separation MM 1.8 cm DOPPLER AV Peak Velocity 119.0 cm/s LVOT Peak Velocity 63.0 cm/s AV Area Cont Eq vti 1.7 cm squared AV Area Cont Eq pk 1.4 cm squared MV Peak Velocity 105.0 cm/s MV Area PHT 3.6 cm squared Mitral E to A Ratio 0.0 TV Peak Velocity 292.3 cm/s TR Peak Velocity 310.0 cm/s TR Peak Gradient 38.4 mmHg TV Peak E Velocity 40.0 cm/s Right Atrial Pressure 10.0 mmHg Pulmonary Artery Systolic Pressu 48.4 mmHg PV Peak Velocity 75.0 cm/s FINDINGS Left Ventricle Normal left ventricular size, systolic function and wall thickness, with no regional wall motion abnormalities. Rhythm precludes evaluation of diastolic function. Left ventricular ejection fraction is estimated at 60 %. Right Ventricle Normal right ventricular size and systolic function. Mild pulmonary hypertension, RVSP 48.4 mmHg. Right Atrium Moderately increased right atrial size. Left Atrium Moderately increased left atrial size. Mitral Valve Structurally normal mitral valve. Moderate mitral valve regurgitation. Aortic Valve Structurally normal trileaflet aortic valve. Mild aortic valve regurgitation. No aortic valve stenosis. Tricuspid Valve Structurally normal tricuspid valve. Pulmonic Valve Pulmonic valve not well visualized. [id number] pulmonary valve regurgitation. Pericardium Normal pericardium without effusion. Aorta Normal ascending aorta dimension. IVC Inferior vena cava not visualized. CONCLUSIONS Normal left ventricular size, systolic function and wall thickness, with no regional wall motion abnormalities. Rhythm precludes evaluation of diastolic function. Left ventricular ejection fraction is estimated at 60 %. Normal right ventricular size and systolic function. Mild pulmonary hypertension, RVSP 48.4 mmHg. Moderately increased right atrial size. Moderately increased left atrial size. Structurally normal mitral valve. Moderate mitral valve regurgitation. Structurally normal trileaflet aortic valve. Mild aortic valve regurgitation. No aortic valve stenosis. Previous study 01/09/2021. Mitral regurgitation is new. Dr. Troy Cordoba MD (Electronically Signed) Final Date: 28 April 2024 12:59 S
[2024-04-27 20:55] LABS: Troponin 5 6HR 9.76 ng/L (0-10); Troponin 5 6HR Delta 1.76 ng/L (0-12)
[2024-04-27 21:18] LABS: Lactate Dehydrogenase 211 U/L (135-214); Thyroid Stimulating Hormone 1.96 uIU/mL (0.27-4.20); Vitamin B12 1290 pg/mL (232-1245)
[2024-04-27 21:20] LABS: Glucose Point of Care 99 mg/dL (70-110)
--- NOTE | 2024-04-27 21:39 | PC.NURSE ---
Spoke with regarding patient with order for metoprolol that starts tomrrow. Patients HR is 80-100s and BP 158/98 asking if he wants nurse to give dose of metoprolol tonight as patient takes it BID at home and only took her morning dose. ordered to give one time dose tonight.
[2024-04-27] MEDS: acetaminophen 500 mg Tablet PO (21:47)
[2024-04-27] MEDS: metoprolol tartrate 50 mg Tablet PO (21:47)
[2024-04-27 22:28] LABS: Estmated Average Glucose 117; Hemoglobin A1C 5.7 % (4.0-6.0)
--- NOTE | 2024-04-27 22:41 | ECG_ITS ---
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 Measurements Intervals [place] Rate: 81 P: 0 AL: 0 QRS: 25 QRSD: 90 T: -20 QT: 395 QTc: 460 Interpretive Statements ATRIAL FIBRILLATION NONSPECIFIC T-WAVE ABNORMALITY ABNORMAL RHYTHM ECG Compared to ECG 04/27/2024 19:08:56 T-wave abnormality now present Sinus rhythm no longer present Right bundle-branch block no longer present Left anterior fascicular block no longer present Left ventricular hypertrophy no longer present ST (T wave) deviation no longer present Electronically Signed On 04-28-2024 0:40:53 CDT by Wilmer Celestin M.D. [id number]
[2024-04-28] VITALS (9 sets, daily range): BP systolic 125–137; BP diastolic 72–81; PULSE 73–92; RESP 16–18; TEMP 36.5–36.6; O2SAT 88–97
[2024-04-28 04:58] LABS: Basophils % 0.1 %; Eosinophils # 0.1 10^3/uL (0.0-0.8); Eosinophils % 1.5 %; Hematocrit 36.4 % (36-47); Lymphocytes # 2.6 10^3/uL (0.8-4.8); Lymphocytes % 37.5 %; Mean Corpuscular HGB Conc 31.3 g/dL (30-55); Mean Corpuscular Hemoglobin 28.6 pg (27-33); Mean Corpuscular Volume 91.5 fl (85-98); Mean Platelet Volume 10.1 fL (7.4-10.4); Monocytes # 0.5 10^3/uL (0.2-0.9); Monocytes % 6.9 %; Neutrophils # 3.68 10^3/uL (1.8-7.7); Neutrophils % 53.7 %; Nucleated Red Blood Cells % 0 %; Platelet Count 310 10^3/cmm (157-399); Red Blood Count 3.98 10^6/uL (3.85-5.65); Red Cell Distribution Width 14.6 % (12.1-15.1); White Blood Count 6.85 10^3/uL (3.29-11.43)
[2024-04-28 05:24] LABS: Anion Gap 14.6 (5-19); Blood Urea Nitrogen 10 mg/dL (8-23); Calcium 8.8 mg/dL (8.5-10.5); Carbon Dioxide 28 mmol/L (22-29); Chloride 103 mmol/L (98-107); Creatinine Clr Calc Pharmacy 57.3489; Glucose 92 mg/dL (65-115); Magnesium 1.9 mg/dL (1.7-2.3); Osmolality Calculated 293 mOsm/kg (285-295); Potassium 3.6 mmol/L (3.5-5.1); Sodium 142 mmol/L (136-145)
[2024-04-28] MEDS: FUROsemide 10 mg/mL SDV 10mL 60 MG IVP (06:28)
[2024-04-28] MEDS: sennosides-docusate Tablet 1 TAB PO (08:24)
[2024-04-28] MEDS: metoprolol tartrate 50 mg Tablet PO (08:24)
[2024-04-28] MEDS: donepezil 5 MG Tablet 10 MG PO (08:24)
--- NOTE | 2024-04-28 08:44 | USCV_ITS ---
Gwyn Amayanna Age: 84 Gender: F : 1940 Exam Date: 04/28/2024 09:29 Ordering Phys: Roberto Carlos Painting MD Technologist: [place] [facility] [place]: swelling PROCEDURES: Venous duplex imaging was performed in bilateral lower extremities. Bilaterally, the common femoral, superficial femoral, profunda femoral, popliteal, posterior tibial, greater saphenous veins, and the peroneal trunk were identified and interrogated in the standard fashion. FINDINGS: Normal 2-D Doppler and augmentation and compressibility throughout the lower extremity venous structures. Additional imaging through the proximal calf veins also reveals no thrombus. Limited evaluation of the greater saphenous vein is patent with no thrombus. CONCLUSIONS No DVT bilateral lower extremities. Dr. Rosa Elena Briceño DO (Electronically Signed) Final Date: 28 April 2024 10:56 S
--- NOTE | 2024-04-28 08:49 | PC.CHAP ---
Pastoral Care Encounter/Spiritual Assessment Type of Contact [] Declined hearing therapy teacher visit [] Patient/Family/Request visit [] Outpatient visit [] Follow-up visit [] Physician referral [] Code/Alert [] Routine visit [] Staff referral [] Actively dying [] Patient sleeping [] Family support [] [x] Out of room [] Palliative care [] [] Receiving care in room [] Pre-surgical visit [] Trauma [] Long length of stay [] ICU visit [] Other: Relational/Emotional Strength [] Patient feels connected with others/family/visitors/staff [] Distress [] Loneliness/isolation [] Abandonment Spirituality of Patient [] Person of Jerilyn [] Attends Lutheran of their Jerilyn [] Believes in Prayer [] Reads Bible or Catholic materials [] There are Spiritual issues to be addressed Solid Waste Management Engineer Interventions [] Prayer [] Active listening [] Non-anxious presence [] Spiritual/emotional support [] Crisis/trauma care [] Spiritual counseling [] Bereavement support [] Provided bereavement packet [] Provided Bible/devotional materials [] Provided toy/stuffed animal, coloring book to patient or family member [] Provided Communion [] Anointing/[place] [] Salvation [] Completed spiritual assessment [] Other: Impact on Illness or Injury [] Angry [] Fearful [] Anxious [] Often cries [] Exhaustion [] Unable to work [] Unable to attend christianity [] Unable to walk/stand [] Unable to read [] Unable to drive [] Unable to eat/drink [] Unable to sleep [] Unable to be with family [] Patient intubated [] Other: Summary Time spent with patient
--- NOTE | 2024-04-28 10:10 | PM.DCS ---
Discharge Providers Date of Admission: 04/27/24 18:25 Date of Discharge: April 28, 2024 Attending Provider at Admission: Asya Benitez MD Attending Provider at Discharge: Roberto Carlos Painting MD Primary Care Provider: Maurice Stover DO Diagnoses at Discharge Discharge Diagnosis (1) New onset of congestive heart failure: Status: Acute (2) Hypertension: Status: Acute Qualifiers: Hypertension type: essential hypertension Qualified Code(s): I10 - Essential (primary) hypertension (3) New onset atrial fibrillation: Status: Acute (4) Endometrial/uterine adenocarcinoma: Status: Acute (5) Obstructive sleep apnea (adult) (pediatric): Status: Acute Reason for Visit Reason for Visit: sob, sent by [facility] Course Hospital Course 84-year-old female with history of grade 1 diastolic function presented with chief complaint orthopnea PND and shortness of breath, she started getting worsening of shortness of breath and last 3 to 4 days before her presentation to the ER, she did not notice any diarrhea or fever no active chest pain, patient has sleep apnea uses CPAP at home, during hospitalization she was diuresed aggressively with Lasix 60 mg IV every 12 hours, with adequate urine output and clinical response, she had significant pleural effusion for which I requested radiology for diagnostic and therapeutic thoracentesis, at the time of discharge patient will need Lasix 40 mg daily along potassium supplementation, she will also need home oxygen evaluation before discharge, she is requiring 2 L at baseline Radiology did not do thoracentesis because with diuresis her pleural fluid has decreased in quantity and it is not a safe window to do thoracentesis, she has qualified for oxygen, I will prescribe her Eliquis and metoprolol for her intermittent A-fib, her rhythm has changed to sinus already for intermittent A-fib her Maico Vascor is about 4 Physical Exam Narrative: Awake and alert Signs of fluid load improving Bilateral breath sounds are diminished right greater than left Nonfocal neuroexam No active chest pain Nonfocal neuroexam Discharge Data Studies Completed and Pending Completed Studies During Hospitalization Category Date Time Status CTA chest [CT angio chest PE protcl [id number]] Stat Cat Scan 04/27/24 16:58 Completed XR chest 1V portable [id number] Stat Exams 04/27/24 13:49 Completed Pending at discharge Category Date Time Status Cell Count w Diff Pleural Fld Routine Lab 04/27/24 20:04 Uncollected LDH Pleural Fluid Routine Lab 04/27/24 20:04 Uncollected Pleural Fluid Albumin Routine Lab 04/27/24 20:04 Uncollected Prothrombin Time INR Stat Lab 04/28/24 09:22 Ordered Total Protein Pleural Fluid Routine Lab 04/27/24 20:04 Uncollected pH Pleural Fluid Routine Lab 04/27/24 20:04 [place] [id number] Routine Ultrasound 04/28/24 08:44 Ordered CV. echo complete* [id number] Routine Ultrasound 04/27/24 20:04 Taken US thoracentesis [id number] Routine Ultrasound 04/28/24 20:04 Taken Radiology Impressions Chest X-Ray 04/27/24 13:49 IMPRESSION: Cardiomegaly with left basilar pneumonia and small pleural effusion Chest CTA 04/27/24 16:58 IMPRESSION: CHF with large pleural effusions Laboratory Results WBC 6.85 10^3/uL (3.29-11.43) 04/28/24 04:04 RBC 3.98 10^6/uL (3.85-5.65) 04/28/24 04:04 Hgb 11.40 g/dL (11.27-16.99) 04/28/24 04:04 Hct 36.4 % (36-47) 04/28/24 04:04 MCV 91.5 fl (85-98) 04/28/24 04:04 MCH 28.6 pg (27-33) 04/28/24 04:04 MCHC 31.3 g/dL (30-55) 04/28/24 04:04 RDW 14.6 % (12.1-15.1) 04/28/24 04:04 Plt Count 310 10^3/cmm (157-399) 04/28/24 04:04 MPV 10.1 fL (7.4-10.4) 04/28/24 04:04 Neut % (Auto) 53.7 % 04/28/24 04:04 Lymph % (Auto) 37.5 % 04/28/24 04:04 Ripley % (Auto) 6.9 % 04/28/24 04:04 Eos % (Auto) 1.5 % 04/28/24 04:04 Baso % (Auto) 0.1 % 04/28/24 04:04 Neut # (Auto) 3.68 10^3/uL (1.8-7.7) 04/28/24 04:04 Lymph # (Auto) 2.6 10^3/uL (0.8-4.8) 04/28/24 04:04 Ripley # (Auto) 0.5 10^3/uL (0.2-0.9) 04/28/24 04:04 Eos # (Auto) 0.1 10^3/uL (0.0-0.8) 04/28/24 04:04 Baso # (Auto) 0.0 10^3/uL (0.0-0.1) 04/28/24 04:04 Nucleated RBC % (auto) 0 % 04/28/24 04:04 Nucleated RBCs # 0.0 /100WBC 04/28/24 04:04 D-Dimer 1.62 ug/mLFEU (0-0.59) H 04/27/24 14:14 Sodium 142 mmol/L (136-145) 04/28/24 04:04 Potassium 3.6 mmol/L (3.5-5.1) 04/28/24 04:04 Chloride 103 mmol/L (98-107) 04/28/24 04:04 Carbon Dioxide 28 mmol/L (22-29) 04/28/24 04:04 Anion Gap 14.6 (5-19) 04/28/24 04:04 BUN 10 mg/dL (8-23) 04/28/24 04:04 Creatinine 0.8 mg/dL (0.5-0.9) 04/28/24 04:04 GFR Calculation Not Reportable 04/28/24 04:04 Glucose 92 mg/dL (65-115) 04/28/24 04:04 POC Glucose 99 mg/dL (70-110) 04/27/24 21:16 Estimat Average Glucose 117 04/27/24 14:14 Hemoglobin A1c 5.7 % (4.0-6.0) 04/27/24 14:14 Calculated Osmolality 293 mOsm/kg (285-295) 04/28/24 04:04 Calcium 8.8 mg/dL (8.5-10.5) 04/28/24 04:04 Magnesium 1.9 mg/dL (1.7-2.3) 04/28/24 04:04 Total Bilirubin 1.1 mg/dL (0.15-1.2) 04/27/24 14:14 AST 14 U/L (0-32) 04/27/24 14:14 ALT 8 U/L (0-33) 04/27/24 14:14 Alkaline Phosphatase 96 U/L (35-105) 04/27/24 14:14 Lactate Dehydrogenase 211 U/L (135-214) 04/27/24 14:14 Troponin T Baseline 8 ng/L (0-10) 04/27/24 14:14 Troponin T 120 Minute 10.07 ng/L (0-10) H 04/27/24 17:11 Delta Troponin T 2.07 ABS# (0-10) 04/27/24 17:11 Troponin T Hi Sens 6Hr 9.76 ng/L (0-10) 04/27/24 20:20 Troponin T Hi Sens 6Hr Delta 1.76 ng/L (0-12) 04/27/24 20:20 NT-Pro-B Natriuret Pep 5220 pg/mL (0-450) H 04/27/24 14:14 Total Protein 6.3 g/dL (6.6-8.7) L 04/27/24 14:14 Albumin 3.6 g/dL (3.5-5.2) 04/27/24 14:14 Globulin 2.7 g/dL (1.3-4.6) 04/27/24 14:14 Vitamin B12 1290 pg/mL (232-1245) H 04/27/24 14:14 TSH 1.96 uIU/mL (0.27-4.20) 04/27/24 14:14 Urine Color Yellow (Yellow) 04/27/24 18:19 Urine Appearance Clear (CLEAR) 04/27/24 18:19 Urine pH 7 (5-7) 04/27/24 18:19 Ur Specific [place] 1.010 (1.005-1.030) 04/27/24 18:19 Urine Protein Neg (Negative) 04/27/24 18:19 Urine Glucose (UA) Norm (Normal) 04/27/24 18:19 Urine Ketones Negative (Negative) 04/27/24 18:19 Urine Blood Neg (Negative) 04/27/24 18:19 Urine Nitrate Negative (Negative) 04/27/24 18:19 Urine Bilirubin Neg (Negative) 04/27/24 18:19 Urine Urobilinogen Norm mg/dL (Negative) 04/27/24 18:19 Ur Leukocyte Esterase Negative (Negative) 04/27/24 18:19 Vitals Last Vital Signs Temp 97.8 F 04/28/24 07:52 Pulse 77 04/28/24 09:28 Resp 16 04/28/24 09:28 BP 125/80 04/28/24 07:52 Pulse Ox 95 04/28/24 09:28 O2 Del Method Nasal Cannula 04/28/24 09:28 O2 Flow Rate 2 04/28/24 09:28 Discharge Plan Discharge Patient Disposition: Home Condition: Stable Prescriptions: New potassium chloride 10 mEq tablet extended release 10 meq PO DAILY Qty: 60 0RF Rx Instructions: Only take it with Lasix otherwise do not furosemide [Lasix] 40 mg tablet 40 mg PO DAILY Qty: 60 3RF Continued metoprolol tartrate 50 mg tablet 50 mg PO BID Hold Instructions: Resume on 01/18/21. donepezil 10 mg tablet 10 mg PO BEDTIME Ultra CoQ10 75 mg capsule 75 mg PO DAILY aspirin [Adult Aspirin Regimen] 81 mg tablet,delayed release (DR/EC) 81 mg PO DAILY albuterol sulfate 90 mcg/actuation HFA aerosol inhaler 2 inh inhalation QID PRN (Reason: shortness of breath or wheezing) Qty: 8.5 3RF fluticasone propionate [Flonase Allergy Relief] 50 mcg/actuation spray,suspension 1 spray intranasal Q12H Qty: 16 8RF Rx Instructions: administer into each nostril latanoprost 0.005 % Drops 1 drp OPHTHALMIC (EYE) BEDTIME Rx Instructions: (both eyes) timolol 0.5 % Drops 1 drp OPHTHALMIC (EYE) BID Rx Instructions: (left) dorzolamide 2 % Drops 1 drp OPHTHALMIC (EYE) BID Rx Instructions: (left eye) escitalopram oxalate 10 mg tablet 10 mg PO 2000 alprazolam 0.25 mg tablet 0.25 mg PO 2XD PRN (Reason: Anxiety) atorvastatin 40 mg tablet 40 mg PO BEDTIME Discharge Orders: Discharge Order (Routine); Ordered 04/28/24 Ordered By: Roberto Carlos Painting Other Ambulatory Orders: DME: Oxygen (Order) Location: None Selected Ordered By: Roberto Carlos Painting Referrals: Maurice Stover DO [Staff Physician] - 05/02/24 9:10 am (Please keep your previously scheduled appointment with the on 05-02-24 at 09:10 am. This appointment will be your hospital follow up appointment as well. Please call the office if you have any questions or concerns. Thank you.) Patient Instructions: Furosemide (By mouth) (Lasix), Potassium Chloride (By mouth) (K-Dur, K-Danisha, K-Tab, Jaya Mur), Heart Failure (DC), CHF Stoplight, Opioid Safety Discharge Attestations Time Spent in Discharge Care*: greater than 30 min Status at Discharge: Cognitive status at discharge: cognitively intact, Behavioral status at discharge: cooperative, Quality Metrics Clinical Quality Measures [ No reported AMI, CVA or VTE this stay] Coding Level of Care Code Acute Code for Chg Fwd Diagnoses New onset of congestive heart failure I50.9 Essential hypertension I10 Hypertension type: essential hypertension New onset atrial fibrillation I48.91 Endometrial/uterine adenocarcinoma C54.1 Obstructive sleep apnea (adult) (pediatric) G47.33
--- NOTE | 2024-04-28 10:34 | PC.NURSE ---
called lab due to ordered STAT PT/INR to make sure it is drawn prior to Thoracentesis as requested by Radiologist dept.
[2024-04-28 11:43] LABS: INR 1.01 (0.8-1.2)
--- NOTE | 2024-04-28 12:22 | PC.NURSE ---
10 [facility] radiology/[facility]RI[facility] dept Pt has scheduled Thoracentesis today. asked them what time they are going to do the procedure. They did not know for sure. They requested Pt/INR prior to the procedure. 1224 PM- called [facility] dept again in regards to the time if they are going to do the procedure and what time. they said they should be on their way.
--- NOTE | 2024-04-28 12:29 | PC.NURSE ---
Notified case mgt that pt qualifies for home oxygen per RT eval.
--- NOTE | 2024-04-28 13:07 | ECG_ITS ---
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 Measurements Intervals [place] Rate: 96 P: 0 CT: 0 QRS: 25 QRSD: 88 T: -14 QT: 382 QTc: 485 Interpretive Statements ATRIAL FIBRILLATION WITH ABERRANT CONDUCTION OR VENTRICULAR PREMATURE COMPLEXES ST DEVIATION AND MODERATE T-WAVE ABNORMALITY, CONSIDER ANTERIOR ISCHEMIA [-0.1+ mV T-WAVE IN V3/V4] Compared to ECG 04/27/2024 22:41:36 Ventricular premature complex(es) now present Aberrant conduction of supraventricular beat(s) now present Possible ischemia now present T-wave abnormality still present Electronically Signed On 04-30-2024 20:30:49 CDT by Cedrick Youssef M.D. [id number]
--- NOTE | 2024-04-28 13:30 | PC.NURSE ---
Addendum entered by Asif Burton RN 04/28/24 13:31: Notified Dr. Painting of thr cancellation. That pt is reporting toe cramps and she is on Afib on tele. Original Note: Ultrasound guided thoracentesis cancelled Per Dr. Traylor, pt does not have enough pleural fluid bilaterally to do thoracentesis.
[2024-04-28] MEDS: potassium chloride ER 20 mEq Tablet 40 MEQ PO (14:10)
--- NOTE | 2024-04-28 15:35 | PC.NURSE ---
Discharge Note Patient discharged to home w/HHS via wheelchair to private vehicle accompanied by . Discharge instructions reviewed with patient and/or parts representative. Mobile pharmacy medications and/or prescriptions provided. Educated pt on new meds actions, possible s/e timing and frequency. teaching provided on CHF stoplight such as monitoring weight gain or swelling, increasing or worsening SOB, what is atrial fib and medications per plan and how to use oxygen and compliance to keep using her CPAP at home. Pt verbalizes understanding. oxygen from home delivered by HOME. Belongings/home medications returned.
--- NOTE | 2024-04-28 15:46 | PC.NURSE ---
eduin willingham provided to pt informed pt to come to ER [facility] if there is any worsening sob,swelling or frequent bleeding. pt verbalizes understanding.
--- NOTE | 2024-04-28 20:04 | US_ITS ---
WS: [id number] ULTRASOUND CHEST INDICATION: Thoracentesis TECHNIQUE: Ultrasound bilateral chest FINDINGS: Ultrasound bilateral chest. Small bilateral pleural effusions with compressive and subsegme ntal atelectasis in the lung bases. No accessible window for safe thoracentesis. Atelectatic lung pro trudes into the available windows with respirations. US/US chest [id number] IMPRESSION: Small bilateral pleural effusions with compressive atelectasis in t he lung bases. Thoracentesis not performed. Notified Roberto Carlos Painting MD at 04/28/2024 1:20 PM.
== END 2024-04-28 15:39 | disposition home or self-care (01) ==
LOC: ER 18:10 → CSU 19:28
PROVIDERS: Emergency Medicine; Admitting Provider Internal Medicine; Emergency Provider Physician Assistant; PCP Electrodiagnostic Medicine; Visit Provider Internal Medicine
DX: I11.0 Hypertensive heart disease with heart failure (principal); I50.30 Unspecified diastolic (congestive) heart failure; I48.91 Unspecified atrial fibrillation; C54.1 Malignant neoplasm of endometrium; G47.33 Obstructive sleep apnea (adult) (pediatric); J90 Pleural effusion, not elsewhere classified; R60.0 Localized edema; Z90.710 Acquired absence of both cervix and uterus; Z86.73 Personal history of transient ischemic attack (TIA), and cerebral infarction without residual deficits; E11.9 Type 2 diabetes mellitus without complications; E78.2 Mixed hyperlipidemia; Z87.891 Personal history of nicotine dependence; Z86.16 Personal history of COVID-19
CPT/HCPCS: 32555; 36415; 36416; 71045; 71275; 76604; 80048; 80053; 81003; 82607; 82962; 83036; 83615; 83735; 83880; 84443; 84484; 85025; 85378; 85610; 93005; 93306; 93970; 94760; 96374; 96376; 99285; G0378; J1940; Q9967

== ENCOUNTER → 2024-06-12 13:54 | Outpatient (BNVA) | payer MEDICARE, OTHER, SELFPAY | PROVIDERS: PCP Electrodiagnostic Medicine; Visit Provider Internal Medicine Cardiovascular Disease | DX: I48.91 Unspecified atrial fibrillation (principal); Z79.01 Long term (current) use of anticoagulants; I50.9 Heart failure, unspecified; I25.10 Atherosclerotic heart disease of native coronary artery without angina pectoris; E78.2 Mixed hyperlipidemia; E11.65 Type 2 diabetes mellitus with hyperglycemia; Z87.891 Personal history of nicotine dependence | CPT/HCPCS: 99214 ==

== ENCOUNTER → 2024-07-06 12:47 | Outpatient (BNVA) | payer MEDICARE, OTHER, SELFPAY | PROVIDERS: PCP Electrodiagnostic Medicine; Visit Provider Registered Nurse Neonatal Intensive Care | DX: R10.9 Unspecified abdominal pain (principal) | CPT/HCPCS: 81000 ==

== ENCOUNTER 2024-07-07 16:38 | Emergency (ER) | payer MEDICARE, OTHER, SELFPAY ==
[2024-07-07 16:46] VITALS: BP 128/70; PULSE 105; RESP 22; TEMP 37.9; O2SAT 94; BMI 28.5
--- NOTE | 2024-07-07 17:26 | ED_ITS ---
HPI - Fever 2 General: Chief Complaint: Fever Stated Complaint: throat pain,blood in urin Time Seen by Provider: 07/07/24 17:12 Source: patient Mode of arrival: ambulatory Limitations: no limitations History of Present Illness: Patient is an 84-year-old female past medical history of A-fib and coronary artery bypass procedure who presents to the emergency department complaining of fever onset yesterday. Patient seen at urgent care yesterday diagnosed with a urinary tract infection by urinalysis and started on Augmentin. Has only taken a couple doses, however states her fevers have persisted. Has been taken Tylenol, this only periodically helps and then her fever returns. On arrival her temperature is elevated at 100.3, she is chronically on 2 L of oxygen which she says is from her A-fib. Also uses a CPAP at night. Reports history of CABG and heart attack, states she has stress test coming up in the next couple of days. Current symptoms at this time are the fever, some blood in her urine which is improving, and some allergies. in the room states that she is the same as yesterday, just seems to not be getting better. MD elicited complaint: fever Onset (ago): hour(s) Context: other (Diagnosed with urinary tract infection yesterday) Exacerbating factors: nothing Relieving factors: nothing Associated symptoms: Reports nasal congestion; Deny abdominal pain, flank pain, chills, chest pain, diarrhea, dysuria, headache(s), nausea or vomiting Treatments prior to arrival fever: antibiotics Related Data Home Medications Medication Instructions Recorded Confirmed donepezil 10 mg tablet 10 mg PO BEDTIME 12/10/20 07/06/24 dorzolamide 2 % eye drops 1 drp ophthalmic (eye) BID 01/06/21 07/06/24 latanoprost 0.005 % eye drops 1 drp ophthalmic (eye) BEDTIME 01/06/21 07/06/24 timolol 0.5 % eye drops 1 drp ophthalmic (eye) BID 01/06/21 07/06/24 coenzyme Q10 75 mg capsule (Ultra 75 mg PO DAILY 05/16/21 07/06/24 CoQ10) alprazolam 0.25 mg tablet 0.25 mg PO 2XD PRN Anxiety 04/27/24 07/06/24 escitalopram oxalate 10 mg tablet 10 mg PO 2000 04/27/24 07/06/24 apixaban 5 mg tablet (Eliquis) 2.5 mg PO BID 06/12/24 07/06/24 Previous Rx's Medication Instructions Recorded albuterol sulfate 90 mcg/actuation 2 inh inhalation QID PRN shortness 07/15/23 aerosol inhaler of breath or wheezing #8.5 grams fluticasone propionate 50 1 spray intranasal Q12H #16 grams 12/10/23 mcg/actuation nasal spray,suspension (Flonase Allergy Relief) metoprolol tartrate 50 mg tablet 50 mg PO BID #60 tabs 04/28/24 potassium chloride 10 mEq 10 meq PO DAILY #60 tabs 04/28/24 tablet,extended release atorvastatin 40 mg tablet See Rx Instructions .Route 06/23/24 .COMPLEX #90 tabs cefdinir 300 mg capsule 300 mg PO BID 10 days #20 caps 07/07/24 cetirizine 10 mg tablet (Zyrtec) 10 mg PO DAILY PRN allergy 07/07/24 symptoms #20 tabs Allergies Allergy/AdvReac Type Severity Reaction Status Date / Time codeine Allergy GI upset Verified 07/07/24 16:56 morphine Allergy rash Verified 07/07/24 16:56 sulfabenzamide Allergy unknown Verified 07/07/24 16:56 tetanus toxoid, adsorbed Allergy extreme Verified 07/07/24 16:56 fatigue tetracycline Allergy made her Verified 07/07/24 16:56 tingle losartan AdvReac Intermediate chest Verified 07/07/24 16:56 pain/ weakness/ uneasy feeling Review of Systems 2 General: Reports: 10 or more systems reviewed and unremarkable except in HPI and below Const: Reports: fever(s); Denies: chills, change in appetite, change in weight or diaphoresis ENMT: Reports: throat pain, nasal congestion and post nasal drip; Denies: hoarseness Card: Denies: chest pain, palpitations or lightheadedness Resp: Denies: dyspnea, productive cough or wheezing GI: Denies: abdominal pain, nausea, vomiting, diarrhea, constipation, bloating, change in stool character or hematochezia : Reports: hematuria; Denies: flank pain, difficulty voiding, dysuria, urinary frequency or urinary urgency Musc: Denies: neck pain or back pain Skin/Breast: Denies: rash or new lesions Neuro: Denies: headache(s) or dizziness PFSH ED 2 PFSH: Medical History New onset of congestive heart failure New onset atrial fibrillation Acute hypoxic respiratory failure Endometrial/uterine adenocarcinoma Obstructive sleep apnea (adult) (pediatric) TIA (transient ischemic attack) Acute encephalopathy Diabetes Hypokalemia COPD (chronic obstructive pulmonary disease) Pneumonia COVID-19 Diabetes Hypertension Chronic anxiety Myocardial infarction Arteriosclerosis of coronary artery Obese Left ventricular hypertrophy Palpitations Carpal tunnel syndrome on both sides Mixed hyperlipidemia Bradycardia Hypotension Sleep apnea Leg swelling Surgical History H/O tubal ligation Previous back surgery H/O heart surgery Family History Other No family history of disorders Social History Smoking and tobacco/nicotine status: never used tobacco/nicotine Quit status (tobacco/nicotine): has quit using Year quit tobacco: 1987 Former quit date comment: Hx of 1.5 PPD x 30 Years Second hand smoke exposure: No Alcohol intake: never Substance/Drug Use: never Lives independently: Yes Household members: spouse Marital status: Current occupational status: retired Do you think of yourself as: Straight/Heterosexual Current gender identity: Female Physical Exam 2 Const: COMMON NORMALS: no acute distress, average body habitus, patient oriented x3, no limitations, healthy appearing, alert and well nourished G ENERAL APPEARANCE: cooperative and comfortable ORIENTATION/CONSCIOUSNESS: Yes awake HENMT: COMMON NORMALS: normocephalic, atraumatic, hearing grossly normal bilaterally, external ears normal, Normal external nose present, Normal nasal mucous membranes and turbinates present and moist oral mucous membranes HEAD & SCALP: normocephalic and atraumatic NOSE: Normal external nose present and Normal nasal mucous membranes and turbinates present EXTERNAL EAR: Yes external ears normal Eye: COMMON NORMALS: Equal, round and reactive pupils present, EOMs intact bilaterally and normal visual forbes by confrontation PERIORBITAL: p eriorbital findings abnormal positive bilateral periorbital erythema C ONJUNCTIVA: Yes conjunctival abnormal positive bilateral conjunctival injection PUPIL: Yes Equal, round and reactive pupils present Neck/C-Spine: COMMON NORMALS: full ROM, supple, no meningeal signs and no JVD Resp: COMMON NORMALS: normal respiratory effort, No retractions, No use of accessory muscles and clear to auscultation bilaterally AUSCULTATION: clear to auscultation bilaterally, no crackles, no rales, no rhonchi and no wheezes Cardio: COMMON NORMALS: no JVD, regular rate, S1 normal heart sound present, S2 normal heart sound present, No gallops present (Cardio), No clicks present (Cardio), No murmurs present (Cardio), No rub (Cardio) and Peripheral pulses 2+ throughout RATE: regular rate RHYTHM: abnormal rhythm irregularly irregular HEART SOUNDS: S1 normal heart sound present and S2 normal heart sound present PERIPHERAL PULSES: Peripheral pulses 2+ throughout GI: COMMON NORMALS: Normal to inspection, nondistended, normoactive bowel sounds present, Soft to palpation, non-tender, No hepatosplenomegaly present and no masses AUSCULTATION: Yes normoactive bowel sounds PALPATION: Yes Soft to palpation, No Guarding due to palpation present (GI), No Rigid due to palpation and Yes No hepatosplenomegaly present RECTAL EXAM: deferred : COMMON NORMALS: Yes no CVA tenderness BLADDER/KIDNEY EXAM: Yes no CVA tenderness Back/Pelvis: COMMON NORMALS: no CVA tenderness Extremity: COMMON NORMALS: full ROM and no pedal edema Neuro: COMMON NORMALS: patient oriented x3, moves all extremities, no focal motor deficits and no sensory deficits noted SENSORIUM/ORIENTATION: Yes alert MENINGEAL SIGNS: Yes no meningeal signs Psych: COMMON NORMALS: mental status grossly normal, cooperative and speech normal SPEECH: Yes normal speech Skin: COMMON NORMALS: no rashes or lesions noted GENERAL SKIN EXAM: no rashes or lesions noted Course 2 Vital Signs: Vital signs: Vital Signs Temperature 100.3 F H 07/07/24 16:46 Pulse Rate 78 07/07/24 18:43 Respiratory Rate 16 07/07/24 18:43 Blood Pressure 114/61 07/07/24 18:43 Pulse Oximetry 100 07/07/24 18:43 Oxygen Delivery Me thod Nasal Cannula 07/07/24 18:43 Oxygen Flow Rate 2 07/07/24 18:43 MDM - Fever Medical Decision Making Patient presented for evaluation of fevers and urinary symptoms. Was seen in urgent care today and started on Augmentin. Stating symptoms were just not improving today, unable to control fever. Arrived with elevated temperature of one 0.3. On 2 L at all times for A-fib. Patient states she was having hematuria yesterday, no episodes today. Her blood work all overall unremarkable, her hemoglobin does show decreased from prior, and I did inform her to follow-up with primary care to have this rechecked next week. Urinalysis does show leukocytes and white blood cells, we will switch her to a more appropriate antibiotic. Her main complaint of sore throat, and congestion I believe is due to some allergic rhinitis as she has some periorbital findings and does sound congested. Will also prescribe Zyrtec. Strict return precautions are given. Case discussed with Dr. Travis who agrees with discharge at this time. Lab Data 07/07/24 18:07 07/07/24 18:07 Laboratory Results WBC 9.93 10^3/uL (3.29-11.43) 07/07/24 18:07 RBC 3.80 10^6/uL (3.85-5.65) L 07/07/24 18:07 Hgb 10.40 g/dL (11.27-16.99) L 07/07/24 18:07 Hct 34.1 % (36-47) L 07/07/24 18:07 MCV 89.7 fl (85-98) 07/07/24 18:07 MCH 27.4 pg (27-33) 07/07/24 18:07 MCHC 30.5 g/dL (30-55) 07/07/24 18:07 RDW 14.9 % (12.1-15.1) 07/07/24 18:07 Plt Count 193 10^3/cmm (157-399) 07/07/24 18:07 MPV 10.3 fL (7.4-10.4) 07/07/24 18:07 Neut % (Auto) 72.3 % 07/07/24 18:07 Lymph % (Auto) 19.0 % 07/07/24 18:07 [place] % (Auto) 8.0 % 07/07/24 18:07 Eos % (Auto) 0.3 % 07/07/24 18:07 Baso % (Auto) 0.1 % 07/07/24 18:07 Neut # (Auto) 7.18 10^3/uL (1.8-7.7) 07/07/24 18:07 Lymph # (Auto) 1.9 10^3/uL (0.8-4.8) 07/07/24 18:07 Ro[place] # (Auto) 0.8 10^3/uL (0.2-0.9) 07/07/24 18:07 Eos # (Auto) 0.0 10^3/uL (0.0-0.8) 07/07/24 18:07 Baso # (Auto) 0.0 10^3/uL (0.0-0.1) 07/07/24 18:07 Nucleated RBC % (auto) 0 % 07/07/24 18:07 Nucleated RBCs # 0.0 /100WBC 07/07/24 18:07 Sodium 140 mmol/L (136-145) 07/07/24 18:07 Potassium 3.7 mmol/L (3.5-5.1) 07/07/24 18:07 Chloride 101 mmol/L (98-107) 07/07/24 18:07 Carbon Dioxide 29 mmol/L (22-29) 07/07/24 18:07 Anion Gap 13.7 (5-19) 07/07/24 18:07 BUN 16 mg/dL (8-23) 07/07/24 18:07 Creatinine 1.2 mg/dL (0.5-0.9) H 07/07/24 18:07 GFR Calculation Not Reportable 07/07/24 18:07 Glucose 135 mg/dL (65-115) H 07/07/24 18:07 Calculated Osmolality 293 mOsm/kg (285-295) 07/07/24 18:07 Lactic Acid 1.4 mmol/L (0.5-2.2) 07/07/24 18:07 Calcium 8.6 mg/dL (8.5-10.5) 07/07/24 18:07 Total Bilirubin 0.7 mg/dL (0.15-1.2) 07/07/24 18:07 AST 13 U/L (0-32) 07/07/24 18:07 ALT 6 U/L (0-33) 07/07/24 18:07 Alkaline Phosphatase 88 U/L (35-105) 07/07/24 18:07 Total Protein 6.5 g/dL (6.6-8.7) L 07/07/24 18:07 Albumin 3.8 g/dL (3.5-5.2) 07/07/24 18:07 Globulin 2.7 g/dL (1.3-4.6) 07/07/24 18:07 Urine Color Yellow (Yellow) 07/07/24 18:33 Urine Appearance Clear (CLEAR) 07/07/24 18:33 Urine pH 5.5 (5-7) 07/07/24 18:33 Ur Specific [place] 1.017 (1.005-1.030) 07/07/24 18:33 Urine Protein Trace (Negative) A 07/07/24 18:33 Urine Glucose (UA) Negative (Normal) 07/07/24 18:33 Urine Ketones Negative (Negative) 07/07/24 18:33 Urine Blood Negative (Negative) 07/07/24 18:33 Urine Nitrate Negative (Negative) 07/07/24 18:33 Urine Bilirubin Negative (Negative) 07/07/24 18:33 Urine Urobilinogen 1.0 mg/dL (Negative) 07/07/24 18:33 Ur Leukocyte Esterase 1+ (Negative) A 07/07/24 18:33 Urine RBC 5-10 /hpf (0-2) H 07/07/24 18:33 Urine WBC 10-15 /hpf (0-5) H 07/07/24 18:33 Ur Squamous Epith Cells 5-10 /hpf (0-5) H 07/07/24 18:33 Calcium Oxalate Crystal 15-25 /hpf H 07/07/24 18:33 Amorphous Sediment Trace /hpf 07/07/24 18:33 Urine Bacteria Trace /hpf (NONE) 07/07/24 18:33 Hyaline Casts 5-10 /lpf H 07/07/24 18:33 No radiology studies performed this visit Discharge Plan Discharge Patient Disposition: Home Clinical Impression: Urinary tract infection Qualifiers: Urinary tract infection type: acute cystitis Hematuria presence: without hematuria Qualified Code(s): N30.00 - Acute cystitis without hematuria Allergic rhinitis Qualifiers: Allergic rhinitis trigger: unspecified Allergic rhinitis seasonality: u nspecified Qualified Code(s): J30.9 - Allergic rhinitis, unspecified Condition: Stable Prescriptions: New cefdinir 300 mg capsule 300 mg PO BID 10 Days Qty: 20 0RF Zyrtec 10 mg tablet 10 mg PO DAILY PRN (Reason: allergy symptoms) Qty: 20 0RF Discontinued amoxicillin-pot clavulanate 875-125 mg tablet 1 tab PO BID 7 Days Qty: 14 0RF No Action donepezil 10 mg tablet 10 mg PO BEDTIME Ultra CoQ10 75 mg capsule 75 mg PO DAILY Eliquis 5 mg tablet 2.5 mg PO BID albuterol sulfate 90 mcg/actuation HFA aerosol inhaler 2 inh inhalation QID PRN (Reason: shortness of breath or wheezing) Qty: 8.5 3RF fluticasone propionate [Flonase Allergy Relief] 50 mcg/actuation spray,suspension 1 spray intranasal Q12H Qty: 16 8RF Rx Instructions: administer into each nostril atorvastatin 40 mg tablet See Rx Instructions .ROUTE .COMPLEX Qty: 90 3RF Dose Instruction: TAKE 1 TABLET BY MOUTH EVERYDAY AT BEDTIME Rx Instructions: TAKE 1 TABLET BY MOUTH EVERYDAY AT BEDTIME latanoprost 0.005 % Drops 1 drp OPHTHALMIC (EYE) BEDTIME Rx Instructions: (both eyes) timolol 0.5 % Drops 1 drp OPHTHALMIC (EYE) BID Rx Instructions: (left) dorzolamide 2 % Drops 1 drp OPHTHALMIC (EYE) BID Rx Instructions: (left eye) escitalopram oxalate 10 mg tablet 10 mg PO 2000 alprazolam 0.25 mg tablet 0.25 mg PO 2XD PRN (Reason: Anxiety) potassium chloride 10 mEq tablet extended release 10 meq PO DAILY Qty: 60 0RF Rx Instructions: Only take it with Lasix otherwise do not metoprolol tartrate 50 mg tablet 50 mg PO BID Qty: 60 2RF Discharge Orders: Discharge ED (Routine); Ordered 07/07/24 Ordered By: Can Tenorio Referrals: Maurice Stover DO [Primary Care Provider] - Discharge Diet: Usual diet Discharge Activity: Increase activity as tolerated Patient Instructions: Allergies (ED), Urinary Tract Infection in Older Adults (ED) Activity Restrictions/Additional Instructions: Stop taking Augmentin. Take cefdinir as prescribed. Take Zyrtec. Please follow-up with your primary care provider next week and discuss lab work and ED visit. Return with any new or concerning symptoms. Coding Level of Care Code ED Mobile Engineer for Chg Fwd
[2024-07-07 17:42] VITALS: BP 113/62; PULSE 78; RESP 18; O2SAT 97
[2024-07-07 18:24] LABS: Basophils % 0.1 %; Eosinophils % 0.3 %; Hematocrit 34.1 % (36-47); Lymphocytes # 1.9 10^3/uL (0.8-4.8); Mean Corpuscular HGB Conc 30.5 g/dL (30-55); Mean Corpuscular Hemoglobin 27.4 pg (27-33); Mean Corpuscular Volume 89.7 fl (85-98); Mean Platelet Volume 10.3 fL (7.4-10.4); Monocytes # 0.8 10^3/uL (0.2-0.9); Neutrophils # 7.18 10^3/uL (1.8-7.7); Neutrophils % 72.3 %; Nucleated Red Blood Cells % 0 %; Platelet Count 193 10^3/cmm (157-399); Red Cell Distribution Width 14.9 % (12.1-15.1); White Blood Count 9.93 10^3/uL (3.29-11.43)
[2024-07-07] MEDS: acetaminophen 500 mg Tablet 1000 MG PO (18:30)
[2024-07-07 18:43] VITALS: BP 114/61; PULSE 78; RESP 16; O2SAT 100
[2024-07-07 18:45] LABS: Bilirubin Urine Negative (Negative); Blood Urine Negative (Negative); Glucose Urine UA Negative (Normal); Ketones Urine Negative (Negative); Leukocyte Esterase Urine 1+ (Negative); Nitrate Urine Negative (Negative); Protein Urine Trace (Negative); Specific Gravity, Urine 1.017 (1.005-1.030); Urine Appearance Clear (CLEAR); Urine Color Yellow (Yellow); pH Urine 5.5 (5-7)
[2024-07-07 18:48] LABS: Alanine Aminotransferase 6 U/L (0-33); Albumin Level 3.8 g/dL (3.5-5.2); Alkaline Phosphatase 88 U/L (35-105); Anion Gap 13.7 (5-19); Aspartate Amino Transferase 13 U/L (0-32); Blood Urea Nitrogen 16 mg/dL (8-23); Calcium 8.6 mg/dL (8.5-10.5); Carbon Dioxide 29 mmol/L (22-29); Chloride 101 mmol/L (98-107); Creatinine Clr Calc Pharmacy 35.9128; Globulin 2.7 g/dL (1.3-4.6); Glucose 135 mg/dL (65-115); Osmolality Calculated 293 mOsm/kg (285-295); Potassium 3.7 mmol/L (3.5-5.1); Sodium 140 mmol/L (136-145); Total Bilirubin 0.7 mg/dL (0.15-1.2); Total Protein 6.5 g/dL (6.6-8.7)
[2024-07-07 18:49] LABS: Lactic Sepsis W/Reflex 1.4 mmol/L (0.5-2.2)
[2024-07-07 19:05] LABS: Charge for UA Resulting for Rev; UA Slide Review UA Slide Review Perf
[2024-07-07 19:06] LABS: Amorphous Sediment Urine TRACE /hpf; Bacteria Urine TRACE /hpf; Calcium Oxalate Crystals Urine 15-25 /hpf; UA Manual Slide Review YES
[2024-07-07 19:40] VITALS: BP 116/67; PULSE 83; O2SAT 99
== END 2024-07-07 19:43 | disposition home or self-care (01) ==
PROVIDERS: Emergency Provider Physician Assistant; PCP Electrodiagnostic Medicine
DX: N30.00 Acute cystitis without hematuria (principal); J30.9 Allergic rhinitis, unspecified; Z79.01 Long term (current) use of anticoagulants; Z87.891 Personal history of nicotine dependence; I11.0 Hypertensive heart disease with heart failure; I50.9 Heart failure, unspecified; Z86.73 Personal history of transient ischemic attack (TIA), and cerebral infarction without residual deficits; Z85.42 Personal history of malignant neoplasm of other parts of uterus; E11.9 Type 2 diabetes mellitus without complications; I25.2 Old myocardial infarction; E78.2 Mixed hyperlipidemia
CPT/HCPCS: 36415; 80053; 81003; 81015; 83605; 85025; 99283

== ENCOUNTER 2024-07-11 07:51 | Outpatient (CLI) | payer MEDICARE, OTHER, SELFPAY ==
--- NOTE | 2024-07-11 | ECG_ITS ---
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 Interpretive Statements NAME OF STUDY: LEXISCAN SESTAMIBI STRESS TEST INDICATION: CHF/ASHD, PROCEDURE: At the baseline, the EKG revealed atrial fibrillation with nonspecific ST-T changes and controlled ventricular response rate. The baseline heart was 80 bpm with a blood pressue of 123/71 mm of Hg Lexiscan was infused over a period of 20 seconds. A total of 0.4 milligrams of Lexiscan was infused. The stress phase was continued for a total of 5 minutes. Heart rate at the end of the stress phase was 88 bpm with a blood pressure 94/57 mm of Hg. The EKG at the peak infusion revealed no significant changes. Sestamibi was injected 20 seconds after the Lexiscan infusion. Heart rate at the end of the recovery phase was 83 bpm with a blood pressure of 104/92 mm of Hg. CONCLUSION: 1. No significant EKG changes with the LexiScan infusion 2. No LexiScan induced chest pain or cardiac arrhythmia 3. Normal blood pressure and heart rate response 4. Sestamibi/sestamibi perfusion scan pending; see separate report. Electronically Signed On 07-14-2024 8:31:14 CDT by Cedrick Youssef M.D. [email or web address]
[2024-07-11 08:19] VITALS: BMI 28.5
--- NOTE | 2024-07-11 08:19 | NMCV_ITS ---
NM kilo perf SPECT r/s* [id number] Nadia Amaya Age: 84 Gender: F : 1940 Exam Date: 07/11/2024 08:19 Ordering Phys: Cedrick Youssef MD ([email or web address]) Technologist: BRUNO Bellamy Exam Location: [facility] Indications: ASHD, CHF STRESS TEST [facility] IMAGE PROTOCOL Rest/Stress 1 Lexiscan Day Radiopharmaceutical Dose (mCi) Administration Site Administered by Rest: Tc-99m 10.4 IV BRUNO Bellamy Sestamibi Stress:Tc-99m 32.7 IV BRUNO Bellamy Sestamibi Rest: 11-Jul-2024 60 Discovery 630 Stress: 11-Jul-2024 30 Discovery 630 0.4mg Lexiscan. Images obtained in supine and prone position SPECT RESULTS Technical Quality: Good Raw Data Analysis: Breast attenuation Image Corrections: No attenuation or motion correction applied Summed Stress Score: 3 Summed Rest Score: 0 Summed Difference Score: 3 PERFUSION FINDINGS Small area of minimal to moderately decreased tracer uptake involving the basal inferior and mid inferolateral regions. Significant reversibility was noted in this region FUNCTIONAL RESULTS (calculated via Gated SPECT) Stress Image LV EF (%): 69 Stress EDV (mL):75 TID: 1 Stress ESV (mL):23 FUNCTIONAL FINDINGS: Segmental wall motion analysis revealing no gross wall motion abnormalities IMPRESSIONS 1. Myocardial perfusion imaging revealing small area of minimal to moderate reversibility reversible defect involving the basal inferior and mid inferolateral region suggesting ischemia in distribution of the right coronary artery/circumflex artery 2. Normal LV ejection fraction of 69% 3. LV wall motion analysis revealing no gross wall motion abnormalities. 4. Normal LV volume Comparison study from 11/25/2018, the ischemia appears to be new Dr Cedrick Youssef MD [facility] (Electronically Signed) Final Date: 11 July 2024 20:55 S
[2024-07-11] MEDS: regadenoson 0.4 Mg/5 ml Syringe IVP (09:38)
[2024-07-11 09:54] VITALS: BP 104/92; PULSE 85
== END 2024-07-11 07:52 | disposition home or self-care (01) ==
LOC: CDL 07:53
PROVIDERS: PCP Electrodiagnostic Medicine; Visit Provider Internal Medicine Cardiovascular Disease
DX: Z98.61 Coronary angioplasty status (principal); R94.39 Abnormal result of other cardiovascular function study
CPT/HCPCS: 36415; 78452; 93017; 96375; A9500; J2785

== ENCOUNTER → 2024-07-21 09:22 | Outpatient (BNVA) | payer MEDICARE, OTHER, SELFPAY | PROVIDERS: PCP Electrodiagnostic Medicine; Visit Provider Nurse Practitioner Family | DX: I25.10 Atherosclerotic heart disease of native coronary artery without angina pectoris (principal); I48.91 Unspecified atrial fibrillation; Z87.891 Personal history of nicotine dependence | CPT/HCPCS: 99214 ==

== ENCOUNTER → 2024-12-12 08:54 | Outpatient (BNVA) | payer MEDICARE, OTHER, SELFPAY | PROVIDERS: PCP Electrodiagnostic Medicine; Visit Provider Nurse Practitioner Family | DX: I48.91 Unspecified atrial fibrillation (principal); I34.0 Nonrheumatic mitral (valve) insufficiency; I50.9 Heart failure, unspecified; E78.2 Mixed hyperlipidemia; I25.10 Atherosclerotic heart disease of native coronary artery without angina pectoris; Z87.891 Personal history of nicotine dependence; Z79.01 Long term (current) use of anticoagulants | CPT/HCPCS: 99214 ==

== ENCOUNTER 2025-01-05 09:57 | Outpatient (CLI) | payer MEDICARE, OTHER, SELFPAY ==
--- NOTE | 2025-01-05 10:00 | USCV_ITS ---
Jose Luis Nadia Age: 84 Gender: F : 1940 Exam Date: 01/05/2025 10:14 Ordering Phys: Sylvia Funes NP Technologist: CT Exam Location[place] [facility] [place] Indication: BP: 108 / 63 HR: 76 Rhythm: Sinus Technical Quality: Adequate MEASUREMENTS (Male / Female) Normal Values 2D ECHO LVOT Diameter 2.1 cm LV Ejection Fraction MOD 4C 62.4 % LV Ejection Fraction MOD 2C 56.8 % LV Ejection Fraction 2C AL 57.3 % LA Diameter 4.4 cm RA Systolic Volume 4C AL 65.5 ml RA Systolic Volume 4C MOD 66.6 ml LA Sys Volume AL 108.1 cm cubed LA Sys Volume Index AL 57.6 cm cubed/m squared Aorta at Sinotubular Diameter 2.0 cm M-MODE LA Ao Ratio MM 2.2 AV Cusp Separation MM 1.6 cm DOPPLER AV Peak Velocity 89.0 cm/s LVOT Peak Velocity 75.0 cm/s AV Area Cont Eq vti 4.0 cm squared AV Area Cont Eq pk 3.0 cm squared MV Peak Velocity 92.0 cm/s MV Area PHT 4.6 cm squared Mitral E to A Ratio 57.8 TV Peak Velocity 238.5 cm/s TR Peak Velocity 252.0 cm/s TR Peak Gradient 25.4 mmHg TR Mean Velocity 174.0 cm/s TR Mean Gradient 14.0 mmHg TR Velocity Time Integral 57.5 cm TV Peak E Velocity 77.0 cm/s PV Peak Velocity 100.0 cm/s FINDINGS Left Ventricle Normal left ventricular size and systolic function, EF 62%no regional wall motion abnormalities. Mild left ventricular hypertrophy. Right Ventricle Normal right ventricular size and systolic function. Right Atrium Mildly increased right atrial size. Left Atrium Moderately increased left atrial size. Mitral Valve Mild mitral valve regurgitation. Aortic Valve Thickened aortic valve. Mild aortic valve calcification. Tricuspid Valve No gross abnormalities noted Pulmonic Valve Trace pulmonary valve regurgitation. Pericardium No pericardial effusion. Aorta Normal ascending aorta dimension. IVC Inferior vena cava not visualized. CONCLUSIONS Normal left ventricular size and systolic function, EF 62%no regional wall motion abnormalities. Mild left ventricular hypertrophy. Mildly increased right atrial size. Moderately increased left atrial size. Mild mitral valve regurgitation. Thickened aortic valve. Mild aortic valve calcification. Trace pulmonary valve regurgitation. There is no pericardial effusion. There are no intracardiac masses. Compared to the study from 04/27/2024, there may not be a significant change Dr Cedrick Youssef MD [facility] (Electronically Signed) Final Date: 05 January 2025 19:16 S
== END 2025-01-05 09:58 | disposition home or self-care (01) ==
PROVIDERS: PCP Electrodiagnostic Medicine; Visit Provider Nurse Practitioner Family
DX: I34.0 Nonrheumatic mitral (valve) insufficiency (principal); I51.7 Cardiomegaly; I35.8 Other nonrheumatic aortic valve disorders
CPT/HCPCS: 93306

== ENCOUNTER 2025-04-14 13:58 | Emergency (ER) | payer MEDICARE, OTHER, SELFPAY ==
[2025-04-14 13:59] VITALS: BP 124/75; PULSE 74; RESP 16; TEMP 36.7; O2SAT 97
--- NOTE | 2025-04-14 14:25 | W.ED.SKABFB ---
HPI - Skin/Abscess/Foreign Bdy General: Chief complaint: Skin/Abscess/Foreign Body Stated complaint: bite on back of neck Time Seen by Provider: 04/14/25 14:00 Source: patient Mode of arrival: ambulatory Limitations: no limitations History of Present Illness: Patient is an 85-year-old female who presents the emergency department complaining of a bug bite that occurred last night. States that she directly felt sudden bite the back of her right paracervical muscles, applied some topical bacitracin. Also states she washed it with soap and water due to being told that this would help, but states it is only gotten worse. No headache, fevers, or other symptoms reported. MD complaint: insect bite/sting Onset (ago): hour(s) Location: neck Quality: pruritic Pain Consistency: constant Relieving factors: none Exacerbating factors: none Context: witnessed insect bite Associated symptoms: Deny chills, fever(s), nausea or vomiting Treatments prior to arrival: OTC topical medication Related Data Home Medications ?Medication ?Instructions ?Recorded ?Confirmed donepezil 10 mg tablet 10 mg PO BEDTIME 12/10/20 12/12/24 dorzolamide 2 % eye drops 1 drp ophthalmic (eye) BID 01/06/21 12/12/24 latanoprost 0.005 % eye drops 1 drp ophthalmic (eye) BEDTIME 01/06/21 12/12/24 timolol 0.5 % eye drops 1 drp ophthalmic (eye) BID 01/06/21 12/12/24 coenzyme Q10 75 mg capsule (Ultra 75 mg PO DAILY 05/16/21 12/12/24 CoQ10) alprazolam 0.25 mg tablet 0.25 mg PO 2XD PRN Anxiety 04/27/24 12/12/24 escitalopram oxalate 10 mg tablet 10 mg PO 199904/27/24 12/12/24 Previous Rx's ?Medication ?Instructions ?Recorded albuterol sulfate 90 mcg/actuation 2 inh inhalation QID PRN shortness 07/15/23 aerosol inhaler of breath or wheezing #8.5 grams fluticasone propionate 50 1 spray intranasal Q12H #16 grams 12/10/23 mcg/actuation nasal spray,suspension (Flonase Allergy Relief) potassium chloride 10 mEq 10 meq PO DAILY #60 tabs 04/28/24 tablet,extended release atorvastatin 40 mg tablet See Rx Instructions .Route 06/23/24 .COMPLEX #90 tabs cetirizine 10 mg tablet (Zyrtec) 10 mg PO DAILY PRN allergy 07/07/24 symptoms #20 tabs isosorbide mononitrate 30 mg 30 mg PO DAILY #90 tabs 07/21/24 tablet,extended release 24 hr apixaban 5 mg tablet (Eliquis) 2.5 mg (1/2 x 5 mg) PO BID #90 tabs 12/12/24 metoprolol tartrate 50 mg tablet 25 mg (1/2 x 50 mg) PO BID #60 tabs 12/12/24 triamcinolone acetonide 0.5 % 1 applic topical BID #15 grams 04/14/25 topical ointment Allergies Allergy/AdvReac Type Severity Reaction Status Date / Time codeine Allergy GI upset Verified 12/12/24 09:02 morphine Allergy rash Verified 12/12/24 09:02 sulfabenzamide Allergy unknown Verified 12/12/24 09:02 tetanus toxoid, adsorbed Allergy extreme Verified 12/12/24 09:02 fatigue tetracycline Allergy made her Verified 12/12/24 09:02 tingle losartan AdvReac Intermediate chest Verified 12/12/24 09:02 pain/ weakness/ uneasy feeling Review of Systems General: Reports: 10 or more systems reviewed and unremarkable except in HPI and below Const: Denies: fever(s) or chills Card: Denies: chest pain Resp: Denies: dyspnea GI: Denies: abdominal pain, nausea, vomiting or diarrhea Musc: Denies: extremity pain or joint pain Skin/Breast: Reports: pruritus and new lesions (Bug bite right posterior neck); Denies: rash Neuro: Denies: headache(s) PFS ED PFSH: Medical History New onset of congestive heart failure New onset atrial fibrillation Acute hypoxic respiratory failure Endometrial/uterine adenocarcinoma Obstructive sleep apnea (adult) (pediatric) TIA (transient ischemic attack) Acute encephalopathy Diabetes Hypokalemia COPD (chronic obstructive pulmonary disease) Pneumonia COVID-19 Diabetes Hypertension Chronic anxiety Myocardial infarction Arteriosclerosis of coronary artery Obese Left ventricular hypertrophy Palpitations Carpal tunnel syndrome on both sides Mixed hyperlipidemia Bradycardia Hypotension Sleep apnea Leg swelling Surgical History H/O tubal ligation Previous back surgery H/O heart surgery Family History Other No family history of disorders Social History Smoking and tobacco/nicotine status: former use of tobacco/nicotine Quit status (tobacco/nicotine): has quit using Year quit tobacco: 1987 Former quit date comment: Hx of 1.5 PPD x 30 Years Second hand smoke exposure: No Alcohol intake: never Substance/Drug Use: never Lives independently: Yes Household members: spouse Marital status: Current occupational status: retired Do you think of yourself as: Straight/Heterosexual Current gender identity: Female Physical Exam Const: COMMON NORMALS: no acute distress, average body habitus, patient oriented x3, no limitations, healthy appearing, alert and well nourished HENMT: COMMON NORMALS: normocephalic and atraumatic HEAD & SCALP: normocephalic and atraumatic Neck/C-Spine: COMMON NORMALS: full ROM, no lymphadenopathy, supple and no meningeal signs Resp: COMMON NORMALS: normal respiratory effort, No use of accessory muscles and clear to auscultation bilaterally AUSCULTATION: clear to auscultation bilaterally Cardio: COMMON NORMALS: regular rate and regular rhythm RATE: regular rate RHYTHM: regular rhythm Extremity: COMMON NORMALS: full ROM and capillary refill normal Neuro: COMMON NORMALS: patient oriented x3 SENSORIUM/ORIENTATION: Yes alert MENINGEAL SIGNS: Yes no meningeal signs Skin: COMMON NORMALS: no wounds and turgor normal NARRATIVE SKIN EXAM: To the right posterior neck, there is circumferential erythema and induration noted consistent with a bug bite. No central purulence or fluctuance. No central necrosis. GENERAL SKIN EXAM: turgor normal Course Vital Signs: Vital signs: Vital Signs Temperature 98.1 F 04/14/25 13:59 Pulse Rate 74 04/14/25 13:59 Respiratory Rate 16 04/14/25 13:59 Blood Pressure 124/75 04/14/25 13:59 Pulse Oximetry 97 04/14/25 13:59 Oxygen Delivery Me thod Room Air 04/14/25 13:59 MDM - Skin/Abscess/Foreign Bdy Medicial Decision Making Clinical presentation of the bug bite, overall mild. Do not believe that this is a black , brown recluse, or other concerning insect. Patient requesting something as soap and water had not been helping, will prescribe topical triamcinolone for the swelling but discussed other conservative measures at home. Discharge at this time. No radiology studies performed this visit Discharge Plan Discharge Patient Disposition: Home Clinical Impression: Bug bite Condition: Stable Prescriptions: New triamcinolone acetonide 0.5 % ointment 1 applic topical BID Qty: 15 0RF No Action donepezil 10 mg tablet 10 mg PO BEDTIME Ultra CoQ10 75 mg capsule 75 mg PO DAILY isosorbide mononitrate 30 mg tablet extended release 24 hr 30 mg PO DAILY Qty: 90 3RF metoprolol tartrate 50 mg tablet 25 mg PO BID Qty: 60 2RF Eliquis 5 mg tablet 2.5 mg PO BID Qty: 90 3RF albuterol sulfate 90 mcg/actuation HFA aerosol inhaler 2 inh inhalation QID PRN (Reason: shortness of breath or wheezing) Qty: 8.5 3RF fluticasone propionate [Flonase Allergy Relief] 50 mcg/actuation spray,suspension 1 spray intranasal Q12H Qty: 16 8RF Rx Instructions: administer into each nostril atorvastatin 40 mg tablet See Rx Instructions .ROUTE .COMPLEX Qty: 90 3RF Dose Instruction: TAKE 1 TABLET BY MOUTH EVERYDAY AT BEDTIME Rx Instructions: TAKE 1 TABLET BY MOUTH EVERYDAY AT BEDTIME latanoprost 0.005 % Drops 1 drp OPHTHALMIC (EYE) BEDTIME Rx Instructions: (both eyes) timolol 0.5 % Drops 1 drp OPHTHALMIC (EYE) BID Rx Instructions: (left) dorzolamide 2 % Drops 1 drp OPHTHALMIC (EYE) BID Rx Instructions: (left eye) escitalopram oxalate 10 mg tablet 10 mg PO 2000 alprazolam 0.25 mg tablet 0.25 mg PO 2XD PRN (Reason: Anxiety) potassium chloride 10 mEq tablet extended release 10 meq PO DAILY Qty: 60 0RF Rx Instructions: Only take it with Lasix otherwise do not Zyrtec 10 mg tablet 10 mg PO DAILY PRN (Reason: allergy symptoms) Qty: 20 0RF Discharge Orders: Discharge ED (Routine); Ordered 04/14/25 Ordered By: Can Tenorio Referrals: Maurice Stover DO [Primary Care Provider, Family Practice] Patient Instructions: Insect Bite or Sting (ED) Activity Restrictions/Additional Instructions: Apply the topical ointment. May apply ice for swelling. Follow-up with regular doctor routinely. Print Language: Romanian Coding Level of Care Code ED Final Inspector Balance Wheel for Jez Albright
== END 2025-04-14 14:24 | disposition home or self-care (01) ==
PROVIDERS: Emergency Provider Physician Assistant; PCP Electrodiagnostic Medicine
DX: S10.86XA Insect bite of other specified part of neck, initial encounter (principal); I11.0 Hypertensive heart disease with heart failure; I50.9 Heart failure, unspecified; I48.91 Unspecified atrial fibrillation; G47.33 Obstructive sleep apnea (adult) (pediatric); J44.9 Chronic obstructive pulmonary disease, unspecified; E11.9 Type 2 diabetes mellitus without complications; E78.2 Mixed hyperlipidemia; I25.2 Old myocardial infarction; W57.XXXA Bitten or stung by nonvenomous insect and other nonvenomous arthropods, initial encounter; Z87.891 Personal history of nicotine dependence; Z86.73 Personal history of transient ischemic attack (TIA), and cerebral infarction without residual deficits; Z79.899 Other long term (current) drug therapy; Z79.01 Long term (current) use of anticoagulants
CPT/HCPCS: 99283

== ENCOUNTER → 2025-06-26 10:04 | Outpatient (BNVA) | payer MEDICARE, OTHER, SELFPAY | PROVIDERS: PCP Electrodiagnostic Medicine; Visit Provider Internal Medicine Cardiovascular Disease | DX: I11.0 Hypertensive heart disease with heart failure (principal); I50.9 Heart failure, unspecified; I25.10 Atherosclerotic heart disease of native coronary artery without angina pectoris; E78.2 Mixed hyperlipidemia; E11.65 Type 2 diabetes mellitus with hyperglycemia; I48.0 Paroxysmal atrial fibrillation; Z79.01 Long term (current) use of anticoagulants; Z87.891 Personal history of nicotine dependence | CPT/HCPCS: 99214 ==